=== PATIENT | female | born 1950 | race Caucasian/White ===

== ENCOUNTER 2023-06-04 21:43 | Inpatient (IN) ==
[2023-06-04] MEDS ORDERED: methylPREDNISolone 125 MG/2 ML VIAL IV STA (22:08)
[2023-06-04] MEDS ORDERED: ALBUT/IPRATROP 3MG/0.5MG NEB 3 ML VIAL NEB STA (22:08)
--- NOTE | 2023-06-04 22:14 | Emergency Department Note ---
History of Present Illness General Chief complaint: Shortness of Breath/Dyspnea Stated complaint: COUGH, CHEST PAIN, DIFFICULTY BREATHING X 6 WEEKS Time Seen by Provider: 06/04/23 21:57 History of Present Illness Maximum Pain Intensity: 6 This 73-year-old female with COPD that continues to smoke presents to the ER complaining of cough, congestion, chest pain and back pain steadily getting worse. The PCP put her on Zithromax last week with minimal improvement of symptoms. She had some subjective fever and chills. She had COVID 2 months ago. She has been exposed to COVID again. Patient denies abdominal pain, vomiting, diarrhea, headache, neck stiffness. She has been coughing up yellow- green sputum. No history of blood clots. No leg pain or swelling. She has not been able to smoke for 2 days secondary to the chest pain and shortness of breath. Home Medications Medication Instructions Recorded Confirmed Type omeprazole 20 mg capsule,delayed 20 mg PO BID 07/09/21 06/04/23 History release albuterol sulfate 90 mcg/actuation 2 puff inhalation Q4 PRN wheeze 06/04/23 06/04/23 History aerosol inhaler calcium carbonate 600 mg-vitamin 3 tab PO DAILY 06/04/23 06/04/23 History D3 10 mcg (400 unit) tablet fluticasone 250 mcg-salmeterol 50 1 inh inhalation AMHS 06/04/23 06/04/23 History mcg/dose blistr powdr for inhalation (Wixela Inhub) levothyroxine 100 mcg tablet 100 mcg PO DAILYBB 06/04/23 06/04/23 History montelukast 10 mg tablet 10 mg PO QAM 06/04/23 06/04/23 History tiotropium bromide 18 mcg capsule 1 cap inhalation QAM 06/04/23 06/04/23 History with inhalation device (Spiriva with HandiHaler) tizanidine 4 mg tablet 4 mg PO Q6 PRN Muscle Spasm 06/04/23 06/04/23 History Allergies Allergy/AdvReac Type Severity Reaction Status Date / Time Penicillins Allergy Intermediate HIVES- 50 Verified 07/09/21 22:58 YEARS AGO. Past Med/Surg History Social History Smoking Status: Current every day smoker Tobacco Type: Cigarettes Preferred Language: Belarusian Feels Safe at Home: Yes Review of Systems A total of 10 systems reviewed and were otherwise negative Physical Exam Vital Signs Vital Signs - 24 hr 06/04/23 21:45 06/04/23 23:07 06/04/23 23:09 Temperature 36.6 C Temperature Source Temporal Artery Scan Pulse Rate 94 H 89 Pulse Rate [Apical] Pulse Rate from SpO2 Sensor Pulse Rhythm Regular Pulse Strength Normal Respiratory Rate 18 Respiratory Effort / Characteristics Non-Labored Spontaneous Respiratory Depth Normal Respiratory Pattern Regular Blood Pressure 134/75 Blood Pressure [Right Arm] Blood Pressure Mean 94 Blood Pressure Mean [Right Arm] Blood Pressure Position Sitting Blood Pressure Position [Right Arm] Pulse Oximetry 91 91 Oxygen Delivery Method Room Air Room Air Oxygen Flow Rate Sepsis Recent Fever Within 48 Hours Yes Sepsis New/Unexplained Change in Mental Status N/A Sepsis Action Taken by Nursing No Action Required 06/04/23 23:16 06/04/23 23:16 06/04/23 23:16 Temperature Temperature Source Pulse Rate Pulse Rate [Apical] 88 Pulse Rate from SpO2 Sensor Pulse Rhythm Pulse Strength Respiratory Rate 18 Respiratory Effort / Characteristics Respiratory Depth Respiratory Pattern Blood Pressure Blood Pressure [Right Arm] 133/68 Blood Pressure Mean Blood Pressure Mean [Right Arm] 89 Blood Pressure Position Blood Pressure Position [Right Arm] Sitting Pulse Oximetry 89 L 91 93 Oxygen Delivery Method Room Air Nasal Cannula Nasal Cannula Oxygen Flow Rate 2 2 Sepsis Recent Fever Within 48 Hours Sepsis New/Unexplained Change in Mental Status Sepsis Action Taken by Nursing 06/05/23 00:00 06/05/23 00:28 06/05/23 00:30 Temperature Temperature Source Pulse Rate 87 Pulse Rate [Apical] Pulse Rate from SpO2 Sensor 88 Pulse Rhythm Pulse Strength Respiratory Rate 17 Respiratory Effort / Characteristics Respiratory Depth Respiratory Pattern Blood Pressure 122/73 Blood Pressure [Right Arm] Blood Pressure Mean 89 Blood Pressure Mean [Right Arm] Blood Pressure Position Blood Pressure Position [Right Arm] Pulse Oximetry 90 88 L 92 Oxygen Delivery Method Nasal Cannula Nasal Cannula Nasal Cannula Oxygen Flow Rate 2 2 4 Sepsis Recent Fever Within 48 Hours Sepsis New/Unexplained Change in Mental Status Sepsis Action Taken by Nursing VITALS: Vitals are noted on the nurse's note and reviewed by myself. Vital signs stable. GENERAL: White female with family present, in no acute distress, nondiaphoretic, well-developed well-nourished. SKIN: The skin was without rashes, erythema, edema, or bruising. There is no tenting of the skin. Capillary reflex less than 2 seconds. HEAD: Normocephalic atraumatic. EARS: External auditory canals clear, EYES: Pupils equal round and reactive to light and accommodation. Conjunctivae without injection, sclerae without icterus. Extraocular movements intact. NOSE: Patent, turbinates without inflammation or discharge. MOUTH: Mucous membranes moist. Pharynx without erythema or exudate. Uvula midline. Airway patent. Tongue does not deviate. NECK: Supple without nuchal rigidity. No lymphadenopathy. No thyromegaly. Cervical spine is nontender. No JVD. HEART: Regular rate and rhythm LUNGS: Mild diffuse inspiratory and end expiratory wheezes, No retractions or accessory muscle use. ABDOMEN: Positive bowel sounds x 4. Normal tympanic percussion. Soft, nontender, without masses or organomegaly. James sign negative. No guarding or rebound tenderness. No CVA tenderness MUSCULOSKELETAL: No muscle atrophy, erythema, or edema noted. NEURO: Patient was alert and oriented to person place and time. Normal sensation to light and sharp touch. No focal neurological deficits. Course Administered Medications Lactated Ringer's (Lr) 1,000 mls @ 60 mls/hr IV .[id number] STA Stop: 06/05/23 16:38 Last Admin: 06/05/23 01:19 Dose: 60 mls/hr Documented By: Doxycycline Hyclate 100 mg/ (Dextrose) 100 mls @ 50 mls/hr IV NOW STA Stop: 06/05/23 03:01 Last Admin: 06/05/23 01:46 Dose: 50 mls/hr Documented By: Discontinued Medications Acetaminophen (Acetaminophen 325 Mg Tab) 650 mg PO NOW STA Stop: 06/05/23 01:08 Last Admin: 06/05/23 01:46 Dose: 650 mg Documented By: Albuterol (Albut/Ipratrop 3mg/0.5mg Neb 3 Ml Vial) 3 ml NEB NOW STA; Protocol Stop: 06/04/23 22:09 Last Admin: 06/04/23 22:23 Dose: 3 ml Documented By: GEE Magnesium Sulfate/Dextrose (Magnesium Sulfate / D5w) 1 gm in 100 mls @ 100 mls/hr IV Q1H EBONI Stop: 06/05/23 00:40 Last Infusion: 06/05/23 01:20 Dose: Infused Documented By: Admin: 06/05/23 00:02 Dose: 100 mls/hr Documented By: Infusion: 06/05/23 00:02 Dose: Infused Documented By: Admin: 06/04/23 23:13 Dose: 100 mls/hr Documented By: Ioversol (Optiray 320 125ml) 118 ml IV ONCE ONE Stop: 06/04/23 23:02 Last Admin: 06/04/23 23:01 Dose: 118 ml Documented By: LAINE Methylprednisolone (Methylprednisolone 125 Mg/2 Ml Vial) 125 mg IV NOW STA Stop: 06/04/23 22:09 Last Admin: 06/04/23 22:23 Dose: 125 mg Documented By: GEE Medical Decision Making Medical Records Attestation: I reviewed the patient's medical records. Home Medications Current Medication List: was personally reviewed by me Laboratory Data Attestation: I reviewed the patient's lab results. 06/04/23 21:57 06/04/23 21:57 Lab Results 06/04/23 06/04/23 06/04/23 Range/Units 21:50 21:57 22:47 WBC 14.39 H (4.8-10.8) K/ul RBC 4.05 L (4.20-5.40) M/uL Hgb 12.4 (12.0-16.0) g/dl Hct 39.0 (37.0-47.0) % MCV 96.3 (80.0-100.0) fL MCH 30.6 (25.0-34.0) pg MCHC 31.8 L (32.0-36.0) g/dL RDW Std Deviation 45.8 (36.4-46.3) fL RDW Coeff of Ada 12.8 (11.5-14.5) % Plt Count 475 H (130-400) K/uL MPV 9.2 L (9.4-12.4) fL Immature Gran % (Auto) 0.4 % Neut % (Auto) 48.9 % Lymph % (Auto) 33.4 % Brooks % (Auto) 15.1 % Eos % (Auto) 1.7 % Baso % (Auto) 0.5 % Neut # (Auto) 7.02 H (1.40-6.50) K/uL Lymph # (Auto) 4.81 H (1.20-3.40) K/uL Brooks # (Auto) 2.18 H (0.11-0.59) K/uL Eos # (Auto) 0.25 (0.00-0.50) K/uL Baso # (Auto) 0.07 (0.00-0.20) K/uL Immature Gran # (Auto) 0.06 (0.01-0.20) K/uL APTT 26.8 (21.0-31.0) Seconds PTT Ratio 1.0 Sodium 140 (136-145) mmol/L Potassium 4.0 (3.5-5.1) mmol/L Chloride 103 (98-107) mmol/L Carbon Dioxide 31 (21-32) mmol/L Anion Gap 6 (3-11) BUN 13 (6-23) mg/dl Creatinine 0.66 (0.6-1.2) mg/dl Est Cr Clr Drug Dosing 60.9 ml/min Est GFR ( Amer) 102.3 ml/min Est GFR (Non-Af Amer) 88.3 ml/min BUN/Creatinine Ratio 19.7 (10-20) Glucose 88 (70-99(Fasting)) mg/dl Calcium 10.3 (8.6-10.3) mg/dl Magnesium 1.6 L (1.7-2.4) mg/dl Total Bilirubin 0.2 (0.2-1.0) mg/dl AST 29 (13-39) U/L ALT 23 (7-52) U/L Alkaline Phosphatase 79 (34-104) U/L Troponin I High Sens 4.2 (0-14) pg/ml B-Natriuretic Peptide 98 (0-100) pg/ml Total Protein 7.6 (6.0-8.3) gm/dl Albumin 4.1 (3.4-5.0) gm/dl Globulin 3.5 (2.5-4.0) gm/dl Albumin/Globulin Ratio 1.2 (0.9-2) Lipase 17 (11-82) U/L Adenovirus (PCR) Not Detected (NotDetected) B. pertussis DNA (PCR) Not Detected (NotDetected) B.parapertussis DNA PCR Not Detected (NotDetected) C. pneumoniae DNA (PCR) Not Detected (NotDetected) Coronavirus OC43 (PCR) Not Detected (NotDetected) Coronavirus HKU1 (PCR) Not Detected (NotDetected) Coronavirus 229E (PCR) Not Detected (NotDetected) SARS-CoV-2 (PCR) Not Detected (NotDetected) Coronavirus NL63 (PCR) Not Detected (NotDetected) Human Metapneumovir PCR Not Detected (NotDetected) Influenza Type A (PCR) Not Detected (NotDetected) Influenza Type B (PCR) Not Detected (NotDetected) M. pneumoniae (PCR) Not Detected (NotDetected) Parainfluenza 1 (PCR) Not Detected (NotDetected) Parainfluenza 2 (PCR) Not Detected (NotDetected) Parainfluenza 3 (PCR) Not Detected (NotDetected) Parainfluenza 4 (PCR) Not Detected (NotDetected) RSV (PCR) Not Detected (NotDetected) Entero/Rhino (PCR) DETECTED A* (NotDetected) Imaging Data Attestation: I personally reviewed and interpreted this imaging study as follows: Radiologist's Impression: Chest CTA 06/04/23 22:08 Exam(s): CTA CHEST IV Amt: OPTIRAY [id number] EXAM: CT Angiography Chest With Intravenous Contrast CLINICAL HISTORY: Reason for exam: PE, COPD, recent covid. TECHNIQUE: Axial computed tomographic angiography images of the chest with intravenous contrast. Automated exposure control was utilized for the study. A dose lowering technique was utilized adhering to the principles of ALARA. MIP reconstructed images were created and reviewed. COMPARISON: 07/10/2021 FINDINGS: Pulmonary arteries: Unremarkable. No CT evidence of pulmonary embolism. Aorta: No acute findings. No thoracic aortic aneurysm. Lungs: Bronchial wall thickening within bilateral lung bases with patchy areas of consolidation. Smaller area of centrilobular opacities within the right middle lobe as well. Findings are most concerning for an infectious etiology. Severe centrilobular emphysema. Pleural space: Unremarkable. No significant effusion. No pneumothorax. Heart: Unremarkable. No cardiomegaly. No significant pericardial effusion. No evidence of RV dysfunction. Bones/joints: No acute fracture. No dislocation. Soft tissues: Unremarkable. Lymph nodes: Unremarkable. No enlarged lymph nodes. IMPRESSION: 1. No CT evidence of pulmonary embolism. 2. Bronchial wall thickening within bilateral lung bases with patchy areas of consolidation. Smaller area of centrilobular opacities within the right middle lobe as well. Findings are most concerning for an infectious etiology. 3. Severe centrilobular emphysema. Electronically signed by: Beny Blank M.D. 06/05/23 01:42 AM MDM Narrative Prior records/ancillary studies reviewed. Triage Nursing notes reviewed. Additional history obtained from the family. The patient's history was concerning for respiratory difficulties. Differential diagnosis: Etiologies such as infections, reactive airway disease, pneumonia, pneumothorax, COPD, CHF, cardiac ischemia, pulmonary embolism, musculoskeletal, gastrointestinal, as well as others were entertained. Physical examination: As above. ER treatment provided: An order was placed for continuous cardiac monitoring. The monitor shows a rate of 60-100 with a sinus rhythm per my interpretation. Solu-Medrol, nebulizer, magnesium, doxycycline On reassessment the patient felt better. Diagnostic interpretation by me: The electrocardiogram was ordered for SOB. ECG: Normal sinus, low voltage, poor baseline, no acute ST-T wave changes, rate of 88. Impression normal sinus rhythm low voltage independently interpreted by myself I think arrhythmia is unlikely. EKG shows normal sinus rhythm with no interval abnormalities such as QT prolongation or WPW. There are no findings to suggest Brugada syndrome. Cardiac monitoring in the emergency department reveals no tachycardic or bradycardic dysrhythmia. Hypertrophic cardiomyopathy was considered but there are no clear historical elements pointing toward this. EKG is not suggestive. The QRS voltage is not extremely large and there are no suggestive Q waves. The labs Independently Interpreted by myself revealed leukocytosis, negative troponin. Low magnesium this was replaced as above Imaging studies: Chest x-ray with no acute consolidation, pneumothorax or free air per my independent interpretation CTA negative for PE but concerning for Bronchial wall thickening within bilateral lung bases with patchy areas of consolidation per my independent interpretation And report above was reviewed. Consultation: A consultation was placed with the hospitalist. The case was discussed and diagnostics were reviewed. The patient was evaluated in the ER for further treatment. This appears to be consistent with COPD exacerbation who is hypoxic. Patient is placed on nasal cannula and oxygen levels improved. She was medicated as above. Medicine was consulted and case was discussed. She will be admitted to the medical service for further evaluation and treatment. Patient is agreeable.. By the evaluation outlined above emergent etiologies such as CHF, cardiac ischemia, pulmonary embolism, reactive airway disease, pneumothorax, musculoskeletal, serious bacterial infections, as well as others were deemed relatively unlikely. The pt informed about the findings as listed above. All questions were answered and pleased with the treatment. The chart was completed utilizing [employer] Speech voice recognition software. Grammatical errors, random word insertions, pronoun errors, and incomplete sentences are an occassional consequence of this system due to software limitations, ambient noise, and hardware issues. Any formal questions or concerns about the content, text, or information contained within the body of this dictation should be directly addressed to the physician fleet assistant for clarification. Impression & Plan Acute exacerbation of chronic obstructive airways disease, Acute bronchitis due to Rhinovirus, Hypoxemia Discharge Plan Visit Data Chief Complaint: Shortness of Breath/Dyspnea Stated Complaint: COUGH, CHEST PAIN, DIFFICULTY BREATHING X 6 WEEKS ED Provider: Abdoul Chaudhry ED Midlevel Provider: Fanny Swanson Discharge Problem: Acute exacerbation of chronic obstructive airways disease, Acute bronchitis due to Rhinovirus, Hypoxemia Patient Disposition: Admitted As Inpatient Condition: Good Discharge Instructions Interventions: ED Discharge Assessment Last Done: 06/05/23 01:40
[2023-06-04 22:16] LABS: Hemoglobin 12.4 g/dl (12.0-16.0); Mean Corpuscular Hemoglobin 30.6 pg (25.0-34.0); Mean Corpuscular Hgb Conc 31.8 g/dL (32.0-36.0); Mean Corpuscular Volume 96.3 fL (80.0-100.0); Mean Platelet Volume 9.2 fL (9.4-12.4); Platelet Count 475 K/uL (130-400); RDW Coefficient of Variation 12.8 % (11.5-14.5); RDW Standard Deviation 45.8 fL (36.4-46.3); Red Blood Count 4.05 M/uL (4.20-5.40); White Blood Count 14.39 K/ul (4.8-10.8)
[2023-06-04 22:32] LABS: Albumin Globulin Ratio 1.2 (0.9-2); Albumin Level 4.1 gm/dl (3.4-5.0); BUN Creatinine Ratio 19.7 (10-20); Bilirubin,Total 0.2 mg/dl (0.2-1.0); Calcium 10.3 mg/dl (8.6-10.3); Creatinine Clr Calc Pharmacy 60.9 ml/min; Est GFR (African American) 102.3 ml/min; Est GFR (Non-African American) 88.3 ml/min; Globulin 3.5 gm/dl (2.5-4.0); Total Protein 7.6 gm/dl (6.0-8.3)
[2023-06-04 22:39] LABS: Magnesium 1.6 mg/dl (1.7-2.4)
[2023-06-04 22:48] LABS: Troponin I High Sensitivity 4.2 pg/ml (0-14)
[2023-06-04 22:51] LABS: Adenovirus PCR Not Detected (NotDetected); Bordetella parapertussis PCR Not Detected (NotDetected); Bordetella pertussis PCR Not Detected (NotDetected); Chlamydia pneumoniae PCR Not Detected (NotDetected); Coronavirus 229E PCR Not Detected (NotDetected); Coronavirus CoV-2 (COVID19)PCR Not Detected (NotDetected); Coronavirus HKU1 PCR Not Detected (NotDetected); Coronavirus NL63 PCR Not Detected (NotDetected); Coronavirus OC43PCR Not Detected (NotDetected); Human Metapneumovirus PCR Not Detected (NotDetected); Influenza A PCR Not Detected (NotDetected); Influenza B PCR Not Detected (NotDetected); Mycoplasma pneumoniae PCR Not Detected (NotDetected); Parainfluenza Virus 1 PCR Not Detected (NotDetected); Parainfluenza Virus 2 PCR Not Detected (NotDetected); Parainfluenza Virus 3 PCR Not Detected (NotDetected); Parainfluenza Virus 4 PCR Not Detected (NotDetected); Respiratory Syncytial VirusPCR Not Detected (NotDetected)
[2023-06-04 22:52] LABS: Rhinovirus/Enterovirus PCR DETECTED (NotDetected)
[2023-06-04 22:53] LABS: Basophils # (auto) 0.07 K/uL (0.00-0.20); Basophils % (auto) 0.5 %; Eosinophils # (auto) 0.25 K/uL (0.00-0.50); Eosinophils % (auto) 1.7 %; Immature Granulocytes # (auto) 0.06 K/uL (0.01-0.20); Immature Granulocytes % (auto) 0.4 %; Lymphocytes # (auto) 4.81 K/uL (1.20-3.40); Lymphocytes % (auto) 33.4 %; Monocytes # (auto) 2.18 K/uL (0.11-0.59); Monocytes % (auto) 15.1 %; Neutrophils # (auto) 7.02 K/uL (1.40-6.50); Neutrophils % (auto) 48.9 %
[2023-06-04] MEDS ORDERED: OPTIRAY 320 125ml IV ONE (23:01)
[2023-06-04] MEDS: MAGNESIUM SULFATE / D5W 1 GM/100 ML BAG IV SCH (23:13)
--- NOTE | 2023-06-04 23:36 | Emergency Department Note ---
ED Visit Note I was consulted by the Advanced Practice Provider, Fanny Swanson PA-C. I performed a substantive portion of the visit. This includes the aspects of: -History/Physical/Personally seeing the patient -MDM -Diagnostic interpretations -Disposition/plan
[2023-06-04] MEDS ORDERED: LACTATED RINGER'S 1,000 ML IV STA (23:59)
[2023-06-05] MEDS: MAGNESIUM SULFATE / D5W 1 GM/100 ML BAG IV SCH (00:02)
[2023-06-05 00:13] LABS: Partial Thromboplastin Time 26.8 Seconds (21.0-31.0)
[2023-06-05] MEDS ORDERED: DOXYCYCLINE HYCLATE 100 MG in DEXTROSE 5% MINI-B 100 ML IV STA (01:02)
--- NOTE | 2023-06-05 01:03 | History & Physical Report ---
Date of Service June 05, 2023 Assessment & Plan (1) Acute hypoxemic respiratory failure: Plan: Secondary to COPD exacerbation secondary to complicated bronchitis following enterorhinovirus infection No overt sepsis for now prediabetes, recent outpatient hemoglobin A1c of 5.9 this month hypothyroidism, euthyroid as of recent outpatient TSH GERD, stable on regimen Malnutrition, low BMI secondary to COPD ongoing tobacco abuse Medical telemetry Supplemental O2 Doxycycline course for complicated bronchitis Nebs RTC, prednisone course for COPD exacerbation Pulmonology consult if without improvement. May benefit from outpatient Pulmonology consultation given uncontrolled respiratory symptoms at baseline prior to confinement. Nutrition consult Re: Low BMI DVT prophylaxis. Heparin subcu DNR Text document was generated using Facebook voice recognition software. It may contain grammatical or spelling errors. Kindly contact undersigned for clarification of any documentation item in question. History of Present Illness Chief Complaint: Worsening cough, shortness of breath symptoms Primary Care Provider: Dr. Qureshi History obtained from patient and records. Medical history significant for COPD, prediabetes, hypothyroidism, GERD, celiac disease, chronic myofascial pain, osteoporosis, ongoing tobacco abuse. Patient had cough symptoms attributed to COVID-19 illness about 2 months ago. Patient has received COVID-19 vaccination. Recovered with supportive management at home. Patient was good for about a week following COVID-19 illness. Symptoms later followed by junky cough, exertional SOB symptoms. Denies aspiration. Patient compliant with home inhalers but still smokes. Insurance does not cover Advair. Patient did not mention respiratory symptoms to outpatient providers because she feels that "they do not listen to her." Patient is seen at PCP's office 2 weeks ago. Patient verbalized fatigue symptoms. Patient later prescribed short course of prednisone for troublesome cough and SOB which resulted in transient improvement of symptoms. 2 days ago, patient developed nasal congestion productive of yellow-greenish drainage. Possible sick contacts. Worsening junky cough and SOB symptoms. Chest pain and headache from coughing. Denies aspiration. Lowest O2 sat of 80s documented at the ER. Patient given Solu-Medrol and neb treatment. 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 Home Medications Medication Instructions Recorded Confirmed Type omeprazole 20 mg capsule,delayed 20 mg PO BID 07/09/21 06/04/23 History release albuterol sulfate 90 mcg/actuation 2 puff inhalation Q4 PRN wheeze 06/04/23 06/04/23 History aerosol inhaler calcium carbonate 600 mg-vitamin 3 tab PO DAILY 06/04/23 06/04/23 History D3 10 mcg (400 unit) tablet fluticasone 250 mcg-salmeterol 50 1 inh inhalation AMHS 06/04/23 06/04/23 History mcg/dose blistr powdr for inhalation (Wixela Inhub) levothyroxine 100 mcg tablet 100 mcg PO DAILYBB 06/04/23 06/04/23 History montelukast 10 mg tablet 10 mg PO QAM 06/04/23 06/04/23 History tiotropium bromide 18 mcg capsule 1 cap inhalation QAM 06/04/23 06/04/23 History with inhalation device (Spiriva with HandiHaler) tizanidine 4 mg tablet 4 mg PO Q6 PRN Muscle Spasm 06/04/23 06/04/23 History Past Med/Surg History Social History Smoking Status: Former smoker Tobacco Type: Cigarettes Hx Substance Use: No Preferred Language: Latvian Communication Ability: Effective Silo Man Required: No Beliefs That Will Affect Care: None Current Living Situation: Spouse Other Information That Helps Us Care for You: No Feels Safe at Home: Yes Safety Concerns: Feels Safe At This Time Assistive Devices: Denture - Upper, Denture - Lower and Glasses Review of Systems Review of Systems: As per HPI, all other systems reviewed and negative Physical Exam Physical Exam: GENERAL: Slightly uncomfortable, underweight, no respiratory distress SKIN: Normal color, warm HEENT: [place] palpebral conjunctivae, no ptosis, dry buccal mucosa, nasal cannula in place NECK : Supple, no tenderness CHEST : Decreased breath sounds, no tenderness HEART : RRR, no obvious murmurs ABDOMEN: no distention, nontender EXTREMITIES : No LE swelling/tenderness, no other conspicuous deformities noted NEUROLOGIC : Coherent, no facial asymmetry, no other gross focality Results & Data Results & Data Vital Signs (Past 12 Hours) Vital Signs Temp Pulse Pulse Resp BP BP Pulse Ox 06/05/23 00:30 92 06/05/23 00:28 88 L 06/05/23 00:00 87 17 122/73 90 06/04/23 23:16 88 18 133/68 93 06/04/23 23:16 91 06/04/23 23:16 89 L 06/04/23 23:09 91 06/04/23 23:07 89 06/04/23 21:45 36.6 C 94 H 18 134/75 91 O2 Del Method O2 Flow Rate 06/05/23 00:30 Nasal Cannula 4 06/05/23 00:28 Nasal Cannula 2 06/05/23 00:00 Nasal Cannula 2 06/04/23 23:16 Nasal Cannula 2 06/04/23 23:16 Nasal Cannula 2 06/04/23 23:16 Room Air 06/04/23 23:09 Room Air 06/04/23 23:07 06/04/23 21:45 Room Air Laboratory Results Laboratory Results WBC 14.39 K/ul (4.8-10.8) H 06/04/23 21:57 RBC 4.05 M/uL (4.20-5.40) L 06/04/23 21:57 Hgb 12.4 g/dl (12.0-16.0) 06/04/23 21:57 Hct 39.0 % (37.0-47.0) 06/04/23 21:57 MCV 96.3 fL (80.0-100.0) 06/04/23 21:57 MCH 30.6 pg (25.0-34.0) 06/04/23 21:57 MCHC 31.8 g/dL (32.0-36.0) L 06/04/23 21:57 RDW Std Deviation 45.8 fL (36.4-46.3) 06/04/23 21:57 RDW Coeff of Ada 12.8 % (11.5-14.5) 06/04/23 21:57 Plt Count 475 K/uL (130-400) H 06/04/23 21:57 MPV 9.2 fL (9.4-12.4) L 06/04/23 21:57 Immature Gran % (Auto) 0.4 % 06/04/23 21:57 Neut % (Auto) 48.9 % 06/04/23 21:57 Lymph % (Auto) 33.4 % 06/04/23 21:57 Cole % (Auto) 15.1 % 06/04/23 21:57 Eos % (Auto) 1.7 % 06/04/23 21:57 Baso % (Auto) 0.5 % 06/04/23 21:57 Neut # (Auto) 7.02 K/uL (1.40-6.50) H 06/04/23 21:57 Lymph # (Auto) 4.81 K/uL (1.20-3.40) H 06/04/23 21:57 Cole # (Auto) 2.18 K/uL (0.11-0.59) H 06/04/23 21:57 Eos # (Auto) 0.25 K/uL (0.00-0.50) 06/04/23 21:57 Baso # (Auto) 0.07 K/uL (0.00-0.20) 06/04/23 21:57 Immature Gran # (Auto) 0.06 K/uL (0.01-0.20) 06/04/23 21:57 APTT 26.8 Seconds (21.0-31.0) 06/04/23 21:57 PTT Ratio 1.0 06/04/23 21:57 Sodium 140 mmol/L (136-145) 06/04/23 21:57 Potassium 4.0 mmol/L (3.5-5.1) 06/04/23 21:57 Chloride 103 mmol/L (98-107) 06/04/23 21:57 Carbon Dioxide 31 mmol/L (21-32) 06/04/23 21:57 Anion Gap 6 (3-11) 06/04/23 21:57 BUN 13 mg/dl (6-23) 06/04/23 21:57 Creatinine 0.66 mg/dl (0.6-1.2) 06/04/23 21:57 Est Cr Clr Drug Dosing 60.9 ml/min 06/04/23 21:57 Est GFR ( Amer) 102.3 ml/min 06/04/23 21:57 Est GFR (Non-Af Amer) 88.3 ml/min 06/04/23 21:57 BUN/Creatinine Ratio 19.7 (10-20) 06/04/23 21:57 Glucose 88 mg/dl (70-99(Fasting)) 06/04/23 21:57 Calcium 10.3 mg/dl (8.6-10.3) 06/04/23 21:57 Magnesium 1.6 mg/dl (1.7-2.4) L 06/04/23 21:57 Total Bilirubin 0.2 mg/dl (0.2-1.0) 06/04/23 21:57 AST 29 U/L (13-39) 06/04/23 21:57 ALT 23 U/L (7-52) 06/04/23 21:57 Alkaline Phosphatase 79 U/L (34-104) 06/04/23 21:57 Troponin I High Sens 4.2 pg/ml (0-14) 06/04/23 21:57 B-Natriuretic Peptide 98 pg/ml (0-100) 06/04/23 22:47 Total Protein 7.6 gm/dl (6.0-8.3) 06/04/23 21:57 Albumin 4.1 gm/dl (3.4-5.0) 06/04/23 21:57 Globulin 3.5 gm/dl (2.5-4.0) 06/04/23 21:57 Albumin/Globulin Ratio 1.2 (0.9-2) 06/04/23 21:57 Lipase 17 U/L (11-82) 06/04/23 21:57 Adenovirus (PCR) Not Detected (NotDetected) 06/04/23 21:50 B. pertussis DNA (PCR) Not Detected (NotDetected) 06/04/23 21:50 B.parapertussis DNA PCR Not Detected (NotDetected) 06/04/23 21:50 C. pneumoniae DNA (PCR) Not Detected (NotDetected) 06/04/23 21:50 Coronavirus OC43 (PCR) Not Detected (NotDetected) 06/04/23 21:50 Coronavirus HKU1 (PCR) Not Detected (NotDetected) 06/04/23 21:50 Coronavirus 229E (PCR) Not Detected (NotDetected) 06/04/23 21:50 SARS-CoV-2 (PCR) Not Detected (NotDetected) 06/04/23 21:50 Coronavirus NL63 (PCR) Not Detected (NotDetected) 06/04/23 21:50 Human Metapneumovir PCR Not Detected (NotDetected) 06/04/23 21:50 Influenza Type A (PCR) Not Detected (NotDetected) 06/04/23 21:50 Influenza Type B (PCR) Not Detected (NotDetected) 06/04/23 21:50 M. pneumoniae (PCR) Not Detected (NotDetected) 06/04/23 21:50 Parainfluenza 1 (PCR) Not Detected (NotDetected) 06/04/23 21:50 Parainfluenza 2 (PCR) Not Detected (NotDetected) 06/04/23 21:50 Parainfluenza 3 (PCR) Not Detected (NotDetected) 06/04/23 21:50 Parainfluenza 4 (PCR) Not Detected (NotDetected) 06/04/23 21:50 RSV (PCR) Not Detected (NotDetected) 06/04/23 21:50 Entero/Rhino (PCR) DETECTED (NotDetected) A* 06/04/23 21:50 CT chest: 1. No CT evidence of pulmonary embolism. 2. Bronchial wall thickening within bilateral lung bases with patchy areas of consolidation. Smaller area of centrilobular opacities within the right middle lobe as well. Findings are most concerning for an infectious etiology. 3. Severe centrilobular emphysema. Diagnostic Findings EKG as per my interpretation : Rate 90, NSR, LAD, LAFB, incomplete RBBB, no ischemia, low voltage
[2023-06-05] MEDS ORDERED: ACETAMINOPHEN 325 MG TAB PO STA (01:07)
--- NOTE | 2023-06-05 01:43 | CT Scan Report ---
Exam(s): CTA CHEST IV Amt: OPTIRAY 320 118ML EXAM: CT Angiography Chest With Intravenous Contrast CLINICAL HISTORY: Reason for exam: PE, COPD, recent covid. TECHNIQUE: Axial computed tomographic angiography images of the chest with intravenous contrast. Automated exposure control was utilized for the study. A dose lowering technique was utilized adhering to the principles of ALARA. MIP reconstructed images were created and reviewed. COMPARISON: 07/10/2021 FINDINGS: Pulmonary arteries: Unremarkable. No CT evidence of pulmonary embolism. Aorta: No acute findings. No thoracic aortic aneurysm. Lungs: Bronchial wall thickening within bilateral lung bases with patchy areas of consolidation. Smaller area of centrilobular opacities within the right middle lobe as well. Findings are most concerning for an infectious etiology. Severe centrilobular emphysema. Pleural space: Unremarkable. No significant effusion. No pneumothorax. Heart: Unremarkable. No cardiomegaly. No significant pericardial effusion. No evidence of RV dysfunction. Bones/joints: No acute fracture. No dislocation. Soft tissues: Unremarkable. Lymph nodes: Unremarkable. No enlarged lymph nodes. IMPRESSION: 1. No CT evidence of pulmonary embolism. 2. Bronchial wall thickening within bilateral lung bases with patchy areas of consolidation. Smaller area of centrilobular opacities within the right middle lobe as well. Findings are most concerning for an infectious etiology. 3. Severe centrilobular emphysema. Electronically signed by: Beny Blank M.D. 06/05/23 01:42 AM
[2023-06-05 04:41] LABS: BUN Creatinine Ratio 18.3 (10-20); Calcium 9.8 mg/dl (8.6-10.3); Creatinine Clr Calc Pharmacy 56.6 ml/min; Est GFR (African American) 98.6 ml/min; Est GFR (Non-African American) 85.1 ml/min; Magnesium 2.1 mg/dl (1.7-2.4); Potassium 4.1 mmol/L (3.5-5.1)
[2023-06-05 04:43] LABS: Basophils # (auto) 0.05 K/uL (0.00-0.20); Basophils % (auto) 0.3 %; Eosinophils # (auto) 0.01 K/uL (0.00-0.50); Eosinophils % (auto) 0.1 %; Hematocrit (blood only) 40.8 % (37.0-47.0); Hemoglobin 12.8 g/dl (12.0-16.0); Immature Granulocytes # (auto) 0.07 K/uL (0.01-0.20); Immature Granulocytes % (auto) 0.5 %; Lymphocytes # (auto) 2.36 K/uL (1.20-3.40); Lymphocytes % (auto) 16.2 %; Mean Corpuscular Hemoglobin 30.1 pg (25.0-34.0); Mean Corpuscular Hgb Conc 31.4 g/dL (32.0-36.0); Mean Platelet Volume 9.4 fL (9.4-12.4); Monocytes # (auto) 0.13 K/uL (0.11-0.59); Monocytes % (auto) 0.9 %; Neutrophils # (auto) 11.93 K/uL (1.40-6.50); Platelet Count 501 K/uL (130-400); RDW Coefficient of Variation 12.9 % (11.5-14.5); RDW Standard Deviation 45.6 fL (36.4-46.3); Red Blood Count 4.25 M/uL (4.20-5.40); White Blood Count 14.55 K/ul (4.8-10.8)
[2023-06-05] MEDS: LEVOTHYROXINE SODIUM 100 MCG TABLET PO SCH (06:32)
[2023-06-05] MEDS ORDERED: XOPENEX/ATROVENT 1.25mg/0.5MG NEB COMBO NEB SCH (07:00)
--- NOTE | 2023-06-05 07:04 | XRay Report ---
XR chest 1V portable HISTORY: illness COMPARISON: Chest CT 07/10/2021. FINDINGS: Emphysema. No pneumothorax. No pleural effusions. No focal lung consolidations. No evidence for pulmonary edema. The cardiac silhouette is top normal in size. There are postoperative changes w ithin the right humerus. IMPRESSION: Emphysema. Otherwise, no acute process within the chest. ACT 112: Negative or not required by law. Electronically signed by: Kolby Moon M.D. 06/05/2023 7:03 AM
[2023-06-05] MEDS: LEVALBUTEROL 1.25 MG/3 ML NEB NEB SCH ×4 (07:45→23:54)
[2023-06-05] MEDS: IPRATROPIUM BROMIDE NEB SOLN 0.02% 2.5 ML VIAL INH SCH ×4 (07:45→23:54)
[2023-06-05] MEDS: UMECLIDINIUM BROMIDE 62.5MCG/BLISTER 7 PUFFS/INHALER INH SCH (08:18)
[2023-06-05] MEDS: PANTOprazole 40 MG TAB PO SCH ×2 (08:19→21:44)
[2023-06-05] MEDS: MONTELUKAST SODIUM 10 MG TABLET PO SCH (08:19)
[2023-06-05] MEDS: FLUTICASONE/VILANTEROL 100/25MCG 14 PUFFS/INHALER INH SCH (08:19)
[2023-06-05] MEDS: predniSONE 20 MG TAB PO SCH (08:19)
[2023-06-05] MEDS: tiZANidine HCL 4 MG TABLET PO PRN (08:21)
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
--- OUTSIDE RECORDS SUMMARY | 2023-06-05 09:41 | External Medical Summary ---
Author Name Unknown Address Unknown Organization [id number][place] [place] [address] [place] [address] Laboratory Report Ordering Provider Test Date Status JESUS ALBERTO VELA 05/25/2023 15:43:22 Final Observation Date Value Abnormality Reference (Units ) Status Vitamin B12 05/25/2023 15:43:22 [phone] (pg/mL) Final Performing Location [facility] [place] [address] [facility] [place] [address]
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
--- OUTSIDE RECORDS SUMMARY | 2023-06-05 09:41 | External Medical Summary ---
Author Name Unknown Address Unknown Organization K01:[facility]ATORY [place] [address] [address] [facility] [place]. [place] [address] Laboratory Report Ordering Provider Test Date Status JESUS ALBERTO VELA 05/25/2023 15:43:22 Final Observation Date Value Abnormality Reference (Units ) Status Gliadin peptide IgG Ab [Presence] in Serum by Immunoassay 05/25/2023 15:43:22 Positive Abnormal Negative Final Gliadin peptide IgG Ab [Units/volume] in Serum by Immunoassay 05/25/2023 15:43:22 26.0 <7 (U/mL) Final Gliadin peptide IgA Ab [Presence] in Serum by Immunoassay 05/25/2023 15:43:22 Positive Abnormal Negative Final Gliadin peptide IgA Ab [Units/volume] in Serum by Immunoassay 05/25/2023 15:43:22 78.0 <7 (U/mL) Final Performing Location [facility] [place] [facility] [place] [address]
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
--- OUTSIDE RECORDS SUMMARY | 2023-06-05 09:41 | External Medical Summary | Summary of Care ---
Author Name Unknown Organization [facility] Address [address] [facility] [place] [address] Phone [phone] Care Team Providers Care Life Skills Trainer Name Role Phone Jose Alejandro Qureshi MD Primary Care Provide r Reason for Visit * Reason Comments Outpatient Testing Encounter Details Date Type Department Care Team (Late st Contact Info) Description 05/25/2023 4:20 PM EST Laboratory Laboratory [address] [place] [phone] [place] [address] Senile osteoporosis; Acquired hypothyroidism; Prediabetes; Celiac disease [...] Release Take by mouth. 0 Active MegaRed [place]-3 Krill Oil 500 MG Oral Capsule Take [...] 11:15 AM EST Office Visit General Surgery, [address] [place] [address] Tara Parra MD [address] [place] [address] 08/08/2023 3:30 PM EST Nurse Only Rheumatology [address] [place] [phone] [place], Nurse [address] [place] [phone] 09/21/2023 12:00 PM EST Office Visit Family Medicine [address] [place] [phone] Jose Alejandro Qureshi MD [address] [place] [address] [place] [address] 2024 9:40 AM EDT Office Visit Rheumatology [address] [place] [phone] Fabian Jensen MD [address] [facility], [place] [address] Pending Results Name Type Priority Associated Diagnoses [...] Routine Celiac disease 05/25/2023 3:43 PM EST Health Maintenance Due Date Last Done Comments DISCUSS TOBACCO CESSATION (REFER TO SMARTSET #9723) 1950 Alpha-1 Antitrypsin 1969 Hepatitis C Screening 1969 DTaP,Tdap,and Td Vaccines (1 - Tdap) 1970 Cologuard 02/11/1996 Colonoscopy 02/11/1996 Colorectal Cancer Screening 02/11/1996 Fecal Occult Blood Test 02/11/1996 Sigmoidoscopy 02/11/1996 Zoster Vaccines (1 of 2) 2001 Pneumococcal Vaccine: 65+ Years (2 - PPSV23 or PCV20) 12/20/2017 10/25/2017 Depression Screening 03/28/2021 03/28/2020 COVID-19 Vaccine ( - season) 2023 07/04/2021, 10/24/2020, 09/26/2020 Mammogram 06/08/2023 06/08/2022, 1109/2020, 05/14/2020, Additional history exists TSH 09/18/2023 09/17/2022, 07/18, 04/26/2022, Additional history exists O2 ASSESSMENT COMPLETED IN PAST YEAR FOR COPD 10/15/2023 10/14/2022 DXA Scan 02/18/2024 02/17/2022, 06/17, 04/14/2017, Additional history exists HbA1c 02/24/2024 02/23/2023, 04/17, 03/30/2021, Additional history exists Lipid Panel 11/26/2024 11/27/2019, 11/23/2002 VITAMIN D LEVEL ONCE IN A LIFETIME-USE SMARTSET# [id number] Completed 02/23/2023, 04/26/2022, 07/16/2021, Additional history exists LUNG CANCER SCREENING - USE SMARTSET [id number] Completed 04/22/2023 Influenza Vaccine (FLU shot) Completed [...] as of this encounter Visit Diagnoses Diagnosis Senile osteoporosis Acquired hypothyroidism Unspecified hypothyroidism Prediabetes Other abnormal glucose Celiac disease documented in this encounter Care Teams Life Skills Trainer Relationship Specialty Start Date End Date Jose Alejandro Qureshi MD [address] [place] [address] [place] [address] PCP - General Family Medicine 08/05/22 documented as of this encounter
--- OUTSIDE RECORDS SUMMARY | 2023-06-05 09:41 | External Medical Summary ---
Author Name Unknown Address Unknown Organization K01:[facility] [place] [address] [place] [address] Laboratory Report Ordering Provider Test Date Status MIRIANJESUS ALBERTO 05/25/2023 15:43:22 Final Observation Date Value Abnormality Reference (Units ) Status TSH 05/25/2023 15:43:22 2.37 0.27-4.20 (uIU/mL) Final Performing Location [facility] [address] [facility] [place] [address]
--- OUTSIDE RECORDS SUMMARY | 2023-06-05 09:41 | External Medical Summary | Summary of Care ---
Author Name Unknown Organization [facility] Address [address] [facility] [place] [address] Phone [phone] Care Team Providers Care Medical Physicist Name Role Phone Jose Alejandro Qureshi MD Primary Care Provide r Encounter Details Date Type Department Care Team (Late st Contact Info) Description 05/19/2023 9:00 AM EDT Immunization Ancillary [address] [place] [address] [place] [address] [place] [address] Arrived Allergies Active Allergy Reactions Criticality Noted [...] Release Take by mouth. 0 Active MegaRed [place]-3 Krill Oil 500 MG Oral Capsule Take [...] 11:15 AM EST Office Visit General Surgery, [facility] [address] [place] [address] Tara Parra MD [address] [place] [address] 08/08/2023 3:30 PM EST Nurse Only Rheumatology [address] [place] [phone] [place], Nurse Rheum [address] [place] [phone] 09/21/2023 12:00 PM EST Office Visit Family Medicine [address] [place] [phone] Jose Alejandro Qureshi MD [address] [place] [address] [place] [address] 2024 9:40 AM EDT Office Visit Rheumatology [address] [place] [phone] Fabian [place] MD [facility] [place] [place] [address] Health Maintenance Due Date Last Done Comments DISCUSS TOBACCO CESSATION (REFER TO SMARTSET #2702) 1950 Alpha-1 Antitrypsin 1969 Hepatitis C Screening [...] D LEVEL ONCE IN A LIFETIME-USE SMARTSET# [id number] Completed 02/23/2023, 04/26/2022, 07/16/2021, Additional history exists LUNG CANCER SCREENING - USE SMARTSET [id number] Completed 04/22/2023 Influenza Vaccine (FLU shot) Completed [...] filedocumented as of this encounter Care Teams Medical Physicist Relationship Specialty Start Date End Date Jose Alejandro Qureshi MD [address] [place] [address] [place] [phone] PCP - General Family Medicine 08/05/22 documented as of this encounter
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
--- OUTSIDE RECORDS SUMMARY | 2023-06-05 09:42 | External Medical Summary | Summary of Care ---
Author Name Unknown Organization [facility] Address [address] [place] [address] Phone [phone] Care Team Providers Care Bin Piler Name Role Phone Jose Alejandro Qureshi MD Primary Care Provide r Encounter Details Date Type Department Care Team Description 03/08/2023 Orders Only Outcomes Research Department [address] [place] [address] Fanny Bernal CHRA [employer] Research Other*[id number] Allergies Active Allergy Reactions Severity Noted Date [...] Take by mouth. 0 Activ e MegaRed [place]-3 Krill Oil 500 MG Oral Capsule Take [...] not swallow.. 30 Capsule 6 11/10/2022 Active Fluticasone-Salmeter ol 250-50 MCG/ACT Inhalation Aerosol Powder Breath Activated (Advair Diskus)Indications:C OPD, mild (HCC) Inhale 1 Puff by mouth [...] Muscle spasms. 120 Tablet 0 03/07/2023 Active Hospital, Clinic, or Other Facility Administered [...] Encounters Date Type Specialty Care Team Description 03/08/2023 Office Visit General Surgery Tara Parra MD [address] [place] [address] 03/23/2023 Office Visit Family Medicine Jose Alejandro Qureshi MD [address] [place] [address] [place] [address] 03/23/2023 Laboratory Laboratory [place], Lab [address] [place] [address] 08/08/2023 Nurse Only Rheumatology [place], Nurse Rheum [address] [place] [phone] 2024 Office Visit Rheumatology Fabian Jensen [facility] [address] [facility] [address] Scheduled Orders Name Type Priority Associated Diagnoses Orde r Schedule MYCODE SUBSEQUENT ADULT Lab Routine [employer] Other*[id number] Every 6 Months for 2 Occurrences starting 03/08/2023 until 03/27/2024 Health Maintenance Due Date Last Done Comments DISCUSS TOBACCO CESSATION (REFER TO SMARTSET #5521) 1950 Alpha-1 Antitrypsin 1969 Hepatitis C Screening 1969 DTaP,Tdap,and Td Vaccines (1 - Tdap) 1970 Cologuard 02/11/1996 Colonoscopy 02/11/1996 Colorectal Cancer Screening 02/11/1996 Fecal Occult Blood Test 02/11/1996 Sigmoidoscopy 02/11/1996 LUNG CANCER SCREENING - USE SMARTSET 83344 2001 Zoster Vaccines (1 of 2) 2001 Pneumococcal Vaccine: 65+ Years (2 - PPSV23 or PCV20) 12/20/2017 10/25/2017 Depression Screening, Annual for Pts 12 and Over 03/28/2021 03/28/2020 COVID-19 Vaccine (4 - Moderna series) 08/29/2021 07/04/2021, 10/24/2020, 09/26/2020 Influenza Vaccine (FLU shot) (#1) 2023 04/26/2022, 07/04/2021, 03/28/2020, Additional history exists Mammogram 06/08/2023 06/08/2022, 09/2020, 05/14/2020, Additional history exists TSH 09/18/2023 09/17/2022, 07/18, 04/26/2022, Additional history exists O2 ASSESSMENT COMPLETED IN PAST YEAR FOR COPD 10/15/2023 10/14/2022 DXA Scan 02/18/2024 02/17/2022, 06/17, 04/14/2017, Additional history exists HbA1c 02/24/2024 02/23/2023, 04/17, 03/30/2021, Additional history exists Lipid Panel 11/26/2024 11/27/2019, 11/23/2002 VITAMIN D LEVEL ONCE IN A LIFETIME-USE SMARTSET# [id number] Completed 02/23/2023, 04/26/2022, 07/16/2021, Additional history exists [...] as of this encounter Visit Diagnoses Diagnosis [employer] Other*[id number] documented in this encounter Care Teams Bin Piler Relationship Specialty Start Date End Date Jose Alejandro Qureshi MD [address] [place] [address] [place] [address] PCP - General Family Medicine 08/05/22 documented as of this encounter
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
--- OUTSIDE RECORDS SUMMARY | 2023-06-05 09:42 | External Medical Summary | Summary of Care ---
Author Name Unknown Organization [facility] Address [address] [place] [address] Phone [phone] Care Team Providers Care Bleach Range Operator Name Role Phone Jose Alejandro Qureshi MD Primary Care Provide r Reason for Visit * Reason Comments eRx-Medication Refill Encounter Details Date Type Department Care Team Description 03/07/2023 Refill Family Medicine [address] [phone] Jose Alejandro Qureshi MD [address] [place] [address] [place] [address] COPD, mild (HCC) Allergies Active Allergy Reactions Severity Noted Date Comments Penicillins 05/12/2001 documented as of this encounter (statuses as of 03/08/2023) Medications Medication Sig Dispensed Refills Start Date End Date Status Garlique 400 MG Oral Tablet Delayed Release Take by mouth . 0 Active Multiple Vitamins-Minerals (MULTIVITAMIN ADULTS 50+) TABS Take by mouth. 0 Acti ve vitamin c (ASCORBIC ACID) 500 MG Tablet Take 1 Tablet by mouth in the morning. 0 Active Magnesium Cl-Calcium Carbonate 71.5-119 MG Oral Tablet Delayed Release Take by mouth. 0 Activ e MegaRed [place]-3 Krill Oil 500 MG Oral Capsule Take by mouth. 0 Active Ventolin HFA 108 (90 Base) MCG/ACT Inhalation Aerosol SolutionIndications :COPD, mild (HCC) Inhale 2 Puffs by mouth every 4 hours as needed for Wheezing. 18 g 3 3 Active Additional Information Patient not taking.Reported on [...] EVERY DAY 270 Tablet 1 3 Active tiZANidine HCl 4 MG Oral Tablet (Zanaflex)Indicatio ns:Leg cramps Take 1 Tablet by mouth every 6 hours as needed for Muscle spasms. 120 Tablet 0 3 Active Fluticasone-Salmete rol 250-50 MCG/ACT Inhalation Aerosol Powder Breath Activated (Advair Diskus)Indications: COPD, mild (HCC) INHALE 1 PUFF BY MOUTH IN THE MORNING AND BEFORE BEDTIME 60 Each 3 3 Active Fluticasone-Salmete rol 250-50 MCG/ACT Inhalation Aerosol Powder Breath Activated (Advair Diskus)Indications: COPD, mild (HCC) Inhale 1 Puff by mouth in the morning and 1 Puff before bedtime. 60 Each 3 3 03/08/20 23 Discontinued Hospital, Clinic, or Other Facility Administered Medication [...] encounter Miscellaneous Notes * Telephone Encounter - Serenity Henning RPh - 03/08/2023 1:19 PM EDTSigned Prescriptions: Disp Refills Fluticasone-Salmeterol 250-50 MCG/ACT Inha*60 Each3 Sig: INHALE 1 PUFF BY MOUTH IN THE MORNING AND BEFORE BEDTIMEAuthorizing Provider: Krystin QURESHI User: SERENITY HENNING documented in this encounter Plan of Treatment Upcoming Encounters Date Type Specialty Care Team Description 03/08/2023 Office Visit General Surgery Tara Parra MD [address] [place] [address] 03/23/2023 Office Visit Family Medicine Jose Alejandro Qureshi MD [address] [place] [address] [place] [address] 03/23/2023 Laboratory Laboratory [place], Lab [address] [place] [address] 08/08/2023 Nurse Only Rheumatology [place], Nurse [address] [place] [phone] 2024 Office Visit Rheumatology Fabian Jensen MD [address] [facility] [place] [address] Health Maintenance Due Date Last Done Comments DISCUSS TOBACCO CESSATION (REFER TO LOLY #1163) 1950 Alpha-1 Antitrypsin 1969 Hepatitis C Screening 1969 DTaP,Tdap,and Td Vaccines (1 - Tdap) 1970 Cologuard 02/11/1996 Colonoscopy 02/11/1996 Colorectal Cancer Screening 02/11/1996 Fecal Occult Blood Test 02/11/1996 Sigmoidoscopy 02/11/1996 LUNG CANCER SCREENING - USE SMARTSET 61624 2001 Zoster Vaccines (1 of 2) 2001 [...] D LEVEL ONCE IN A LIFETIME-USE SMARTSET# [id number] Completed 02/23/2023, 04/26/2022, 07/16/2021, Additional history exists [...] as of this encounter Visit Diagnoses Diagnosis COPD, mild (HCC) Chronic airway obstruction, not elsewhere classified documented in this encounter Care Teams Bleach Range Operator Relationship Specialty Start Date End Date Jose Alejandro Qureshi MD [address] [place] [address] [place] [address] PCP - General Family Medicine 08/05/22 documented as of this encounter
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
--- OUTSIDE RECORDS SUMMARY | 2023-06-05 09:42 | External Medical Summary ---
Author Name Unknown Address Unknown Organization K01:[facility] [place] - [address] [place] [address] Laboratory Report Ordering Provider Test Date Status JALEN MARQUEZ 02/23/2023 11:40:10 Final Observation Date Value Abnormality Reference (Units ) Status MYCODE SPECIMEN-SST 02/23/2023 11:40:10 Freezing of extracted DNA, whole blood and/or serum. Final Performing Location [facility] [place] - [address] [place] [address]
--- OUTSIDE RECORDS SUMMARY | 2023-06-05 09:42 | External Medical Summary ---
Author Name Unknown Address Unknown Organization K01:[facility] [place] - [address] [place] [address] Laboratory Report Ordering Provider Test Date Status JALEN MARQUEZ 02/23/2023 11:40:10 Final Observation Date Value Abnormality Reference (Units ) Status MYCODE SPECIMEN-SST 02/23/2023 11:40:10 Freezing of extracted DNA, whole blood and/or serum. Final Performing Location [facility] [place] - [address] [place] [address]
--- OUTSIDE RECORDS SUMMARY | 2023-06-05 09:42 | External Medical Summary | Summary of Care ---
Author Name Unknown Organization [facility] Address [address] [facility] [place] [address] Phone [phone] Care Team Providers Care Legislative Aide Name Role Phone Jose Alejandro Qureshi MD Primary Care Provide r Reason for Visit * Reason Onset Date Comments Medication Refill 04/04/2023 Encounter Details Date Type Department Care Team Description 04/04/2023 Refill Family Medicine [address] [place] [id number] Jose Alejandro Qureshi MD [address] [place] [address] [place] [address] Leg cramps Allergies Active Allergy Reactions Severity [...] Release Take by mouth. 0 Active MegaRed Ronda-3 Krill Oil 500 MG Oral Capsule Take [...] Muscle spasms. 120 Tablet 0 04/04/2023 Active tiZANidine HCl 4 MG Oral Tablet (Zanaflex)Indication s:Leg cramps Take 1 Tablet by mouth every 6 hours as needed for Muscle spasms. 120 Tablet 0 03/07/2023 3 Discontinue d(Refill) Hospital, Clinic, or Other [...] - Jose Alejandro Qureshi MD - 04/04/2023 3:29 PM EDT Signed Prescriptions: Disp Refills tiZANidine HCl 4 MG Oral Tablet (Zanaflex) 120 Ta*0 Sig: Take 1 Tablet by mouth every 6 hours as needed for Muscle spasms. Authorizing Provider: JOSE ALEJANDRO QURESHI * Telephone Encounter - Maya Dobbs RN - 04/04/2023 2:35 PM EDTPending Prescriptions: Disp Refills tiZANidine HCl 4 MG Oral Tablet (Zanaflex) 120 Ta*0 Sig: Take 1 Tablet by mouth every 6 hours as needed for Muscle spasms. * Telephone Encounter - Dorota Melissa - 04/04/2023 2:20 PM EDT Did you pend patient's preferred pharmacy and medication before forwarding?yes Pharmacy: [id number] [id number] [facility] Pending Prescriptions: Disp Refills tiZANidine HCl 4 MG Oral Tablet (Zanaflex)120 Ta*0 Sig: Take 1 Tablet by mouth every 6 hours as needed for Muscle spasms. Last Visit: 03/23/2023 (in office), Visit date not found (telemedicine) Next Visit: 09/21/2023 If no future appointments scheduled, and last appointment is greater than a year ago, please schedule patient for a follow-up appointment Last date the medication was ordered: 03/07/2023 90 DAY SUPPLY Is this request for a controlled substance?No Urine Drug Screen:No results found for this or any previous visit. Patient Phone Numbers Labs: Lab Results Component Value Date/Time CREAT 0.7 02/23/2023 11:40 AM CREAT 0.7 03/28/2020 10:27 AM POTASSIUM 4.4 02/23/2023 11:40 AM POTASSIUM 4.5 03/28/2020 10:27 AM TSH 0.38 09/17/2022 09:11 AM TSH 2.77 03/28/2020 10:27 AM LDLCALC 114 (A) 11/27/2019 12:00 AM LDLCALC 173 (HH) 11/23/2002 12:12 PM ALT 20 05/12/2001 12:11 PM HGBA1C 6.1 (H) 02/23/2023 11:40 AM HGBA1C 5.8 (A) 11/27/2019 12:00 AM documented in this encounter Plan of Treatment Upcoming Encounters Date Type Specialty Care Team Description 04/22/2023 Imaging Radiology 06/01/2023 Office Visit General Surgery Tara Parra MD [address] [place] [address] 08/08/2023 Nurse Only Rheumatology Fred, Nurse Sindy [address] [place] [phone] 09/21/2023 Office Visit Family Medicine Jose Alejandro Qureshi MD [address] [place] [address] [place] [address] 2024 Office Visit Rheumatology Fabian Jensen MD [facility] [place] [address] Health Maintenance Due Date Last Done Comments DISCUSS TOBACCO CESSATION (REFER TO SMARTSET #1854) 1950 Alpha-1 Antitrypsin 1969 Hepatitis C Screening 1969 DTaP,Tdap,and Td Vaccines (1 - Tdap) 1970 Cologuard 02/11/1996 Colonoscopy 02/11/1996 Colorectal Cancer Screening 02/11/1996 Fecal Occult Blood Test 02/11/1996 Sigmoidoscopy 02/11/1996 LUNG CANCER SCREENING - USE SMARTSET 09827 2001 Zoster Vaccines (1 of 2) 2001 Pneumococcal Vaccine: 65+ Years (2 - PPSV23 or PCV20) 12/20/2017 10/25/2017 Depression Screening 03/28/2021 03/28/2020 COVID-19 Vaccine (4 - Moderna series) 08/29/2021 07/04/2021, 10/24/2020, 09/26/2020 Influenza Vaccine (FLU shot) (#1) 2023 04/26/2022, 07/04/2021, 03/28/2020, Additional history exists Mammogram 06/08/2023 06/08/2022, 110 09/2020, 05/14/2020, Additional history exists TSH 09/18/2023 09/17/2022, 07/18, 04/26/2022, Additional history exists O2 ASSESSMENT COMPLETED IN PAST YEAR FOR COPD 10/15/2023 10/14/2022 DXA Scan 02/18/2024 02/17/2022, 06/17, 04/14/2017, Additional history exists HbA1c 02/24/2024 02/23/2023, 04/17, 03/30/2021, Additional history exists Lipid Panel 11/26/2024 11/27/2019, 11/23/2002 VITAMIN D LEVEL ONCE IN A LIFETIME-USE SMARTSET# [id number] Completed 02/23/2023, 04/26/2022, 07/16/2021, Additional history exists [...] as of this encounter Visit Diagnoses Diagnosis Leg cramps Cramp of limb documented in this encounter Care Teams Legislative Aide Relationship Specialty Start Date End Date Jose Alejandro Qureshi MD [address] [place] [address] [place] [address] PCP - General Family Medicine 08/05/22 documented as of this encounter
--- OUTSIDE RECORDS SUMMARY | 2023-06-05 09:42 | External Medical Summary ---
Author Name Unknown Address Unknown Organization K01:[facility] [place] - [address] [place] [address] Laboratory Report Ordering Provider Test Date Status JULISSA FLYNNMio 02/23/2023 11:40:10 Debora l Observation Date Value Abnormality Reference (Units ) Status HbA1C 02/23/2023 11:40:10 6.1 Above high normal 4. 0-5.6 (%) Final The use of HbA1c to monitor glycemic status is based on normal hemoglobin and HbA composition. This test should not be used in patients with abnormal hemoglobin that affects the half life of the red blood cell or the in vivo glycation rates. Glucose, estimated average 02/23/2023 11:40:10 128 Above high normal <126 (mg/dL) Harshal al Performing Location [facility] [place] - [address] [place] [address]
--- OUTSIDE RECORDS SUMMARY | 2023-06-05 09:42 | External Medical Summary | Summary of Care ---
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 Name Role Phone Jose Alejandro Qureshi MD Primary Care Provide r Reason for Referral * Evaluate & Treat - Unlimited Visits (Within 10 days (routine)) - Authorized Specialty Diagnoses / Procedures Referred By Contac t Referred To Contact General Surgery Diagnoses Non-recurrent unilateral inguinal hernia without obstruction or gangrene Chandra Neal MD [address] [place] [address] [place] [id number] Referral ID Status Reason Start Date Expiration Date Visits Requested Visits Authorized [id number] Authorized Specialty Services Required 02/09/2023 999 999 Question Answer Referral Priority Within 10 days (routine) What condition is the patient being seen for? General Surgery Conditions What condition is the patient being seen for? Hernia (excluding Hiatal) Reason for Visit * Reason Comments Acute Encounter Details Date Type Department Care Team Description 02/09/2023 Office Visit Family Medicine [address] [place] [phone] Chandra Neal MD [address] [place] [address] [place] [phone] Prediabetes*; Acquired hypothyroidism; Leg cramps; Non-recurrent unilateral inguinal hernia without obstruction or gangrene; COPD, mild (HCC) Allergies Active Allergy Reactions Severity Noted Date Comments Penicillins 05/12/2001 documented as of this encounter (statuses as of 02/09/2023) Medications Medication Sig Dispensed Refills Start Date [...] Take by mouth. 0 Activ e MegaRed [place]-3 Krill Oil 500 MG Oral Capsule Take by mouth. 0 Active Ventolin HFA 108 (90 Base) MCG/ACT Inhalation Aerosol SolutionIndication s:COPD, mild (HCC) Inhale 2 Puffs by mouth every 4 hours as needed for Wheezing. 18 g 3 3 Active Additional Information Patient not taking.Reported on 02/09/2023 Spiriva HandiHaler 18 MCG Inhalation Capsule (tiotropium bromide)Indication s:COPD, mild (HCC) Inhale 1 Capsule by mouth in the morning. For inhaler only, do not swallow.. 30 Capsule 6 3 Active Fluticasone-Salmet portia 250-50 MCG/ACT Inhalation Aerosol Powder Breath Activated (Advair Diskus)Indications :COPD, mild (HCC) Inhale 1 Puff by mouth in the morning and 1 Puff before bedtime. 60 Each 3 3 Active Levothyroxine Sodium 100 MCG Oral Tablet (Levoxyl)Indicatio ns:Acquired hypothyroidism TAKE 1 TABLET DAILY 30 MINUTES PRIOR TO FIRST MEAL OF THE DAY AND OTHER MEDS 90 Tablet 1 3 Active Montelukast Sodium 10 MG Oral Tablet (Singulair)Indicat ions:Seasonal allergies Take 1 Tablet by mouth in the morning. 30 Tablet 5 3 Active Omeprazole 20 MG Oral Capsule Delayed Release (PriLOSEC) TAKE 1 CAPSULE BY MOUTH TWICE A DAY 180 Capsule 1 3 Active Calcium Carb-Cholecalcifer ol 600-10 MG-MCG Oral Tablet TAKE 3 TABLETS BY MOUTH EVERY DAY 270 Tablet 1 3 Active tiZANidine HCl 4 MG Oral Tablet (Zanaflex)Indicati ons:Leg cramps Take 1 Tablet by mouth every 6 hours as needed for Muscle spasms. 120 Tablet 0 07/26/202 3 Active Azithromycin 250 MG Oral Tablet (Zithromax)Indicat ions:COPD, mild (HCC) Take 2 tabs by mouth on the first day, then 1 tab daily on days two through five 6 Tablet 0 3 023 Active predniSONE 20 MG Oral Tablet (Deltasone)Indicat ions:COPD, mild (HCC) Take 1 Tablet by mouth in the morning for 5 days. 5 Tablet 0 3 023 Active tiZANidine HCl 2 MG Oral Tablet (Zanaflex) TAKE 1 TABLET BY MOUTH EVERY 6 HOURS NEEDED FOR MUSCLE SPASM 120 Tablet 0 3 023 Discontinued Methocarbamol 500 MG Oral Tablet (Robamol)Indicatio ns:Chronic myofascial pain Take 1 Tablet by mouth 3 times a day as needed for Muscle spasms. For muscle spasm 30 Tablet 0 3 023 Discontinued(Me dication/Dose Changed) Hospital, Clinic, or Other Facility Administered Medication Ordered Dose Route Frequency Start Date End Date Status Albuterol Sulfate (Proventil) (2.5 MG/3ML) 0.083% inhalation solution 2.5 mgIndications:COPD, mild (HCC) 2.5 mg NEBULIZER ONCE PRN 08/05/2022 08/05/2023 Active documented as of this encounter (statuses as of 02/09/2023) Active Problems Problem Noted Date COPD, mild 08/05/2022 Chronic myofascial pain 04/26/2022 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 05/26/2020 Overview: S/p multiple surgeries from [facility] Prediabetes 04/24/2020 Gastroesophageal reflux disease without esophagitis 03/28/2020 Acquired hypothyroidism 03/28/2020 BMI less than 19,adult 03/28/2020 Senile osteoporosis 03/28/2020 Tobacco use disorder 03/28/2020 Celiac disease documented as of this encounter (statuses as of 02/09/2023) Resolved Problems Problem Noted Date Resolved Date Trigger middle finger of left hand 08/15/2020 03/30/2021 COPD exacerbation 05/26/2020 04/26/2022 Other atopic dermatitis 05/12/2001 03/23/20 20 Overview: ICD-10 update of inactive term LOSS OF TEETH, ACQUIRED 03/23/20 20 documented as of this encounter (statuses as of 02/09/2023) Immunizations Name Administration Dates Next Due COVID-19 [...] Day Cigarettes 1 29 Smokeless Tobacco: Never Tobacco Cessation:Ready to Q uit: Not Asked; Counseling Given: Not Answered Comments:started age 26 Alcohol Use Standard Drinks/Week [...] Sign Reading Time Taken Comments Blood Pressure 110/70 02/09/2023 12:30 PM EDT Pulse 88 02/09/2023 12:30 PM EDT Temperature 36.8 C (98.2 F) 02/09/2023 12:30 PM E DT Respiratory Rate - - Oxygen Saturation - - Inhaled Oxygen Concentration - - Weight 48.1 kg (106 lb) 02/09/2023 12:30 PM EDT Height - - Body Mass Index 17.45 10/14/2022 2:31 PM EDT documented in this encounter Progress Notes * Chandra Neal MD - 02/09/2023 12:19 PM EDT [facility] liver for years in [facility] and moved back here. She is still smoking. He Celiac disease is quiet right now. 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 She gets really bad muscle cramps and spasms, more at night. She has moderate pulmonary disease and right now is coughing More, makingmore mucus. She has a left inguinal or femoral hernia, would like to see a surgeon. Patient Active Problem List Diagnosis Code Celiac disease K90.0 Gastroesophageal reflux disease without esophagitis K21.9 Acquired hypothyroidism E03.9 BMI less than 19,adult Z68.1 Senile osteoporosis M81.0 Tobacco use disorder F17.200 Prediabetes R73.03 Ulnar neuropathy of both upper extremities G56.23 Chronic myofascial pain M79.18, G89.29 COPD, mild (HCC) J44.9 Past Medical History: Diagnosis Date Acquired hypothyroidism 03/28/2020 BMI less than 19,adult 03/28/2020 Celiac disease Chronic myofascial pain 04/26/2022 COPD, severity to be determined (HCC) 05/26/2020 DENTURES Gastroesophageal reflux disease without esophagitis 03/28/2020 Tobacco use disorder Ulnar neuropathy of both upper extremities 05/26/2020 S/p multiple surgeries from [facility] Past Surgical History: Procedure Laterality Date EGD, FLEXIBLE, DIAGNOSTIC 09/24/2021 normal / ESOPHAGOGASTRODUODENOSCOPY (EGD), FLEXIBLE, TRANSORAL, DIAGNOSTIC performed by Glenn Solo MD at [facility] MAMMOGRAM - BILATERAL 11/06/2001 REMOVAL OF TONSILS, AGE 12+ 07/18/1964 REMOVE GALLBLADDER 07/18/1970 Did have gall stones TOTAL ABD HYSTERECTOMY W/WO REMOVAL OF TUBE(S) has ovaries Review of patient's allergies indicates: Allergen Reactions Penicillins Social History Socioeconomic History Marital status: Spouse name: Not on file Number of children: 2 Years of education: Not on file Highest education level: Not on file Occupational History Employer: [email or web address] Tobacco Use Smoking status: Every Day Packs/day: 1.00 Years: 29.00 Pack years: 29.00 Types: Cigarettes Smokeless tobacco: Never Tobacco comments: started age 26 Substance and Sexual Activity Alcohol use: No Drug use: No Sexual activity: Not on file Other Topics Concern Not on file Social History Narrative Not on file Social Determinants of Health Financial Resource Strain: Not on file Food Insecurity: Not on file Transportation Needs: Not on file Physical Activity: Not on file Stress: Not on file Social Connections: Not on file Intimate Partner Violence: Not on file Housing Stability: Not on file Current Outpatient Medications Medication Sig Dispense Refill Garlique 400 MG Oral Tablet Delayed Release Take by mouth . Multiple Vitamins-Minerals (MULTIVITAMIN ADULTS 50+) TABS Take by mouth. vitamin c (ASCORBIC ACID) 500 MG Tablet Take 500 mg by mouth daily. Magnesium Cl-Calcium Carbonate (SLOW-MAG) 71.5-119 MG TBEC Take by mouth. MegaRed [place]-3 Krill Oil 500 MG Oral Capsule Take by mouth. Ventolin HFA 108 (90 Base) MCG/ACT Inhalation Aerosol Solution Inhale 2 Puffs by mouth every 4 hours as needed for Wheezing. 18 g 3 Spiriva HandiHaler 18 MCG Inhalation Capsule (tiotropium bromide) Inhale 1 Capsule by mouth in the morning. For inhaler only, do not swallow.. 30 Capsule 6 Fluticasone-Salmeterol 250-50 MCG/ACT Inhalation Aerosol Powder Breath Activated (Advair Diskus) Inhale 1 Puff by mouth in the morning and 1 Puff before bedtime. 60 Each 3 Levothyroxine Sodium 100 MCG Oral Tablet (Levoxyl) TAKE 1 TABLET DAILY 30 MINUTES PRIOR TO FIRST MEAL OF THE DAY AND OTHER MEDS 90 Tablet 1 Montelukast Sodium 10 MG Oral Tablet (Singulair) Take 1 Tablet by mouth in the morning. 30 Tablet 5 Omeprazole 20 MG Oral Capsule Delayed Release (PriLOSEC) TAKE 1 CAPSULE BY MOUTH TWICE A DAY 180 Capsule 1 tiZANidine HCl 2 MG Oral Tablet (Zanaflex) TAKE 1 TABLET BY MOUTH EVERY 6 HOURS NEEDED FOR MUSCLE SPASM 120 Tablet 0 Calcium Carb-Cholecalciferol 600-10 MG-MCG Oral Tablet TAKE 3 TABLETS BY MOUTH EVERY DAY 270 Tablet 1 Methocarbamol 500 MG Oral Tablet (Robamol) Take 1 Tablet by mouth 3 times a day as needed for Muscle spasms. For muscle spasm 30 Tablet 0 Current Facility-Administered Medications Medication Dose Route Frequency Provider Last Rate Last Admin Albuterol Sulfate (Proventil) (2.5 MG/3ML) 0.083% inhalation solution 2.5 mg 2.5 mg Nebulizer Once PRN Jose Alejandro Qureshi MD 2.5 mg at 08/27/22 1342 I told her we are not going to be prescribing both methocarbamol and the tizanidine. We can increase it to 4 mg though. O: Blood pressure 110/70, pulse 88, temperature 36.8 C (98.2 F), temperature source Tympanic, weight 48.1 kg (106 lb). Lungs have some wheezing and rhonchi. Heart regular A: Prediabetes (Primary) Acquired hypothyroidism Leg cramps - MAGNESIUM; Future; Expected date: 02/09/2023 - tiZANidine HCl 4 MG Oral Tablet (Zanaflex); Take 1 Tablet by mouth every 6 hours as needed for Muscle spasms. Non-recurrent unilateral inguinal hernia without obstruction or gangrene - SURGERY REFERRAL OP COPD, mild (HCC) - Azithromycin 250 MG Oral Tablet (Zithromax); Take 2 tabs by mouth on the first day, then 1 tab daily on days two through five - predniSONE 20 MG Oral Tablet (Deltasone); Take 1 Tablet by mouth in the morning for 5 days. Follow Up: Return if symptoms worsen or fail to improve. documented in this encounter Nursing Notes * Malorie Padron LPN - 02/09/2023 12:19 PM EDT Chief Complaint Patient presents with Acute Inhaler Fluticasone causing increase in cough She states she has a Sinus infection cough up yellow green mucus. No chest xray Nasal drainage with Clear Mucus Duration- Since started on Fluticason and Spiriva inhaler Muscle spasms in hands and all over body. Prescribed Methocarbamol, but ins ref without PA She is taking Tizanidine and states not working Should Not take Both together Hernia Left abd Area Ukifrdvl-6-3 mo Denies pain The patient has been properly identified by confirmation of name and date of . documented in this encounter Plan of Treatment Upcoming Encounters Date Type Specialty Care Team Description 02/23/2023 Office Visit General Surgery Tara Parra MD [address] [place] [address] 03/23/2023 Office Visit Family Medicine Jose Alejandro Qureshi MD [address] [place] [address] [place] [address] 03/23/2023 Laboratory Laboratory [address] [place] [address] 08/08/2023 Nurse Only Rheumatology [place], Nurse [address] [place] [phone] 2024 Office Visit Rheumatology Fabian Jensen MD [address] [place] [address], [place] [address] Scheduled Orders Name Type Priority Associated Diagnoses Orde r Schedule MAGNESIUM Lab Routine Leg cramps Expected: 02/09/2023 (Approximate), Expires: 02/09/2024 Scheduled Referrals Name Type Priority Associated Diagnoses Orde r Schedule SURGERY REFERRAL OP Referral Within 10 da ys (routine) Non-recurrent unilateral inguinal hernia without obstruction or gangrene Ordered: 02/09/2023 Health Maintenance Due Date Last Done Comments DISCUSS TOBACCO CESSATION (REFER TO SMARTSET #5913) 1950 Alpha-1 Antitrypsin 1969 Hepatitis C Screening 1969 DTaP,Tdap,and Td Vaccines (1 - Tdap) 1970 Cologuard 02/11/1996 Colonoscopy 02/11/1996 Colorectal Cancer Screening 02/11/1996 Fecal Occult Blood Test 02/11/1996 Sigmoidoscopy 02/11/1996 LUNG CANCER SCREENING - USE SMARTSET 61271 2001 Zoster Vaccines (1 of 2) 2001 [...] D LEVEL ONCE IN A LIFETIME-USE SMARTSET# [id number] Completed 04/26/2022, 07/16/2021, 01/06/2021, Additional history exists [...] as of this encounter Visit Diagnoses Diagnosis Prediabetes- Primary Other abnormal glucose Acquired hypothyroidism Unspecified hypothyroidism Leg cramps Cramp of limb Non-recurrent unilateral inguinal hernia without obstruction or gangrene COPD, mild (HCC) Chronic airway obstruction, not elsewhere classified documented in this encounter Care Teams Metal Sprayer Production Relationship Specialty Start Date End Date Jose Alejandro Qureshi MD [address] [place] [address] [place] [address] PCP - General Family Medicine 08/05/22 documented as of this encounter
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
--- OUTSIDE RECORDS SUMMARY | 2023-06-05 09:42 | External Medical Summary | Summary of Care ---
Author Name Unknown Organization [facility] Address [address] [place] [address] Phone [phone] Care Team Providers Care Bevel Polisher Name Role Phone Jose Alejandro Qureshi MD Primary Care Provide r Reason for Visit * Reason Onset Date Comments Advice 01/31/2023 Medication Problem 01/31/2023 Methocarbamol Encounter Details Date Type Department Care Team Description 01/31/2023 Telephone Family [address] [place] [phone] Jose Alejandro Qureshi MD [address] [place] [address] [place] [address] Advice; Medication Problem (Methocarbamol ) Allergies Active [...] Take by mouth. 0 Acti ve MegaRed [place]-3 Krill Oil 500 MG Oral Capsule Take [...] MCG/ACT Inhalation Aerosol Powder Breath Activated (Advair Diskus)Indications:LOAN COORDINATOR D, mild (HCC) Inhale 1 Puff by [...] encounter Miscellaneous Notes * Telephone Encounter - Chandra Neal MD - 02/08/2023 4:43 PM EDT She should not be on both and I did not order either of them * Telephone Encounter - Darby Galindo LPN - 02/08/2023 4:04 PM EDT Pt scheduled to see Dr. Neal tomorrow - FYI to Dr. Neal Received a fax from [facility] pharmacy regarding script for Methocarbamol It states: [...] visit * Telephone Encounter - Demian Perdomo [facility] - 01/31/2023 4:04 PM EDT Pt calling [...] cannot sleep. Please advise Thank you, Demian Perdomo, Adriel, ERVIN Clinical Pharmacist [facility] ([facility] (formerly Telepharmacy) 01/31/23 4:16 PM [phone] * Telephone Encounter - SANTOS [facility] - 01/31/2023 4:01 PM EDT Patient called in with side effects from inhalers. Warm transferred to demian for consultation. Thank you, Elis Villalpando [facility] Veterinary Surgeon II [facility])(Formerly [facility]) 01/31/2023,4:02 PM documented in this encounter Plan of Treatment Upcoming Encounters Date Type Specialty Care Team Description 02/09/2023 Office Visit Family Medicine Chandra Neal MD [address] [place] [address] [place] [phone] 03/23/2023 Office Visit Family Medicine Jose Alejandro Qureshi MD [address] [place] [address] [place] [address] 03/23/2023 Laboratory Laboratory [facility] [address] [place] [address] 08/08/2023 Nurse Only Rheumatology [place], Nurse Rheum [address] [place] [phone] 2024 Office Visit Rheumatology Fabian Jensen MD [address] [facility], [place] [address] Health Maintenance Due Date Last Done Comments DISCUSS TOBACCO CESSATION (REFER TO SMARTSET #1830) 1950 Alpha-1 Antitrypsin 1969 Hepatitis C Screening 1969 DTaP,Tdap,and Td Vaccines (1 - Tdap) 1970 Cologuard 02/11/1996 Colonoscopy 02/11/1996 Colorectal Cancer Screening 02/11/1996 Fecal Occult Blood Test 02/11/1996 Sigmoidoscopy 02/11/1996 LUNG CANCER SCREENING - USE SMARTSET 21362 2001 Zoster Vaccines (1 of 2) 2001 Pneumococcal Vaccine: 65+ Years (2 - PPSV23 or PCV20) 12/20/2017 10/25/2017 Depression Screening, Annual for Pts 12 and Over 03/28/2021 03/28/2020 COVID-19 Vaccine (4 - Moderna series) 08/29/2021 07/04/2021, 10/24/2020, 09/26/2020 Influenza Vaccine (FLU shot) (#1) 2023 04/26/2022, 07/04/2021, 03/28/2020, Additional history exists HbA1c 04/26/2023 04/26/2022, 03/18, 11/27/2019 Mammogram 06/08/2023 06/08/2022, 11/0 09/2020, 05/14/2020, Additional history exists TSH 09/18/2023 09/17/2022, 07/18, 04/26/2022, Additional history exists O2 ASSESSMENT COMPLETED IN PAST YEAR FOR COPD 10/15/2023 10/14/2022 DXA Scan 02/18/2024 02/17/2022, 06/17, 04/14/2017, Additional history exists Lipid Panel 11/26/2024 11/27/2019, 11/23/2002 VITAMIN D LEVEL ONCE IN A LIFETIME-USE SMARTSET# 30248 Completed 04/26/2022, 07/16/2021, 01/06/2021, Additional history exists [...] unspecified documented in this encounter Care Teams Bevel Polisher Relationship Specialty Start Date End Date Jose Alejandro Qureshi MD [address] [place] [address] [place] [address] PCP - General Family Medicine 08/05/22 documented as of this encounter
--- OUTSIDE RECORDS SUMMARY | 2023-06-05 09:42 | External Medical Summary ---
Author Name Unknown Address Unknown Organization [facility] [address] [place] [address] Laboratory Report Ordering Provider Test Date Status OSVALDOMARCO 02/23/2023 11:40:10 Final Observation Date Value Abnormality Reference (Units ) Status BUN 02/23/2023 11:40:10 7 6-20 (mg/dL) Final Creatinine 02/23/2023 11:40:10 0.7 0.5-1.0 (mg/dL) Final Glomerular filtration rate/1.73 sq M.predicted [Volume Rate/Area] in Serum, Plasma or Blood by Creatinine-based formula (CKD-EPI) 02/23/2023 11:40:10 >90 >=60 (mL/min) Final eGFR is calculated based on the CKD-EPI 2020 equation SODIUM 02/23/2023 11:40:10 141 135-146 (m mol/L) Final Potassium 02/23/2023 11:40:10 4.4 3.5-5.1 (m mol/L) Final Cl 02/23/2023 11:40:10 107 98-107 (mm ol/L) Final CO2 02/23/2023 11:40:10 25 22-32 (mmo l/L) Final Anion gap 02/23/2023 11:40:10 9 7-15 (mmol /L) Final Glucose 02/23/2023 11:40:10 90 70-120 (mg /dL) Final Calcium 02/23/2023 11:40:10 8.3 Below low normal 8.4 -10.2 (mg/dL) Final [facility] [place] [address]
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
--- OUTSIDE RECORDS SUMMARY | 2023-06-05 09:42 | External Medical Summary | Summary of Care ---
Author Name Unknown Organization [facility] Address [address] [place] [address] Phone [phone] Care Team Providers Care National Coverage Specialist Name Role Phone Jose Alejandro Qureshi MD Primary Care Provide r Reason for Referral * Evaluate & Treat - Unlimited Visits (Within 3 days (urgent)) - Authorized Specialty Diagnoses / Procedures Referred By Contac t Referred To Contact Pulmonary Diseases / Pulmonary Diagnoses Solitary pulmonary nodule Ismael Finn MD [address] [place] [address] Referral ID Status Reason Start Date Expiration Date Visits Requested Visits Authorized [id number] Authorized Specialty Services Required 04/25/2023 999 999 Question Answer Referral Priority Within 3 Days (Urgent) Primary Reason for Referral? Lung Nodule/Mass Reason for Visit * Reason Onset Date Comments STAIR Lung Nodule 04/25/2023 Encounter Details Date Type Department Care Team Description 04/25/2023 Telephone STAIR LUNG NODULE [address] [place] [address] Program, Stair [address] [place] [address] STAIR Lung Nodule Allergies Active Allergy Reactions [...] Release Take by mouth. 0 Active MegaRed [place]-3 Krill Oil 500 MG Oral Capsule Take [...] questions. Elham Ramirez LPN Lung Cancer Screening Soc Analyst [phone] ([id number]) documented in this encounter Plan of Treatment Upcoming Encounters Date Type Specialty Care Team Description 06/01/2023 Office Visit General Surgery Tara Parra MD [address] [place] [address] 08/08/2023 Nurse Only Rheumatology [place], Nurse [address] [place] [phone] 09/21/2023 Office Visit Family Medicine Jose Alejandro Qureshi MD [address] [place] [address] [place] [address] 2024 Office Visit Rheumatology Fabian Jensen MD [address] [employer] [place] [address] Scheduled Referrals Name Type Priority Associated Diagnoses Order Schedule STAIR LUNG NODULE REFERRAL OP (SYSTEM FOR TRACKING ABNORMALITIES OF IMPORTANCE RELIABLY) Referral Within 3 days (urgent) Solitary pulmonary nodule Ordered: 04/25/2023 Health Maintenance Due Date Last Done Comments DISCUSS TOBACCO CESSATION (REFER TO SMARTSET #1437) 1950 Alpha-1 Antitrypsin 1969 Hepatitis C Screening [...] D LEVEL ONCE IN A LIFETIME-USE SMARTSET# [id number] Completed 02/23/2023, 04/26/2022, 07/16/2021, Additional history exists LUNG CANCER SCREENING - USE SMARTSET [id number] Completed 04/22/2023 GARDASIL-HPV IMMUNIZATION SERIES Aged Out [...] Primary documented in this encounter Care Teams National Coverage Specialist Relationship Specialty Start Date End Date Jose Alejandro Qureshi MD [address] [place] [address] [place] [address] PCP - General Family Medicine 08/05/22 documented as of this encounter
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
--- OUTSIDE RECORDS SUMMARY | 2023-06-05 09:42 | External Medical Summary ---
Author Name Unknown Address Unknown Organization [facility] [address] [place] [address] Laboratory Report Ordering Provider Test Date Status MARCO RILEY 02/23/2023 11:40:10 Final Deficient: <20 ng/mL
Ins ufficient: 20-29 ng/mL
Recommended/Optimum:30-50 ng/mL

Vitamin D intoxication is rare. If suspicious of Vitamin D toxicity, evaluation of serum Calcium and PTH is recommended. Observation Date Value Abnormality Reference (Units ) Status 25-OH Vitamin D total 02/23/2023 11:40:10 47 >19 (ng/mL) Final Performing Location [facility] - [address] [place] [id number]
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
--- OUTSIDE RECORDS SUMMARY | 2023-06-05 09:43 | External Medical Summary | Summary of Care ---
Author Name Unknown Organization [facility] Address [address] [place] [address] Phone [phone] Care Team Providers Care Financial Internship Name Role Phone Jose Alejandro Qureshi MD Primary Care Provide r Reason for Visit * Reason Onset Date Comments Advice 01/31/2023 Encounter Details Date Type Department Care Team Description 01/31/2023 Telephone Family Medicine [address] [phone] Jose Alejandro Qureshi MD [address] [place] [address] [place] [address] Advice Allergies Active Allergy Reactions Severity Noted [...] Take by mouth. 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 D, mild (HCC) Inhale 1 Puff by [...] as of this encounter Miscellaneous Notes * Addendum Note - Jose Alejandro Qureshi MD - 01/31/2023 6:23 PM EDTAddended by: JOSE ALEJANDRO QURESHI on: 01/31/2023 06:23 PM Modules accepted: Orders * Telephone Encounter - Jose Alejandro Qureshi MD - 01/31/2023 6:22 PM EDT Will try methocarbamol - discuss further during clinic visit * Telephone Encounter - Demian Perdomo RP - 01/31/2023 4:04 PM EDT Pt calling [...] Services ([facility]PS) (formerly Telepharmacy) 01/31/23 4:16 PM [phone] * Telephone Encounter - SANTOS Ca - 01/31/2023 4:01 PM EDT Patient called in with side effects from inhalers. Warm transferred to demian for consultation. Thank you, Elis Villalpando, [facility] Nursery Laborer II Centralized Clinical Pharmacy Services([facility]PS)(Formerly Telepharmacy) 01/31/2023,4:02 PM documented in this encounter Plan of Treatment Upcoming Encounters Date Type Specialty Care Team Description 02/09/2023 Office Visit Family Medicine Chandra Neal MD [address] [place] [address] [place] [address] 03/23/2023 Office Visit Family Medicine Jose Alejandro Qureshi MD [address] [place] [address] [place] [address] 03/23/2023 Laboratory Laboratory [place], Lab [address] [place] [address] 08/08/2023 Nurse Only Rheumatology [place], Nurse [address] [place] [phone] 2024 Office Visit Rheumatology Fabian Jensen MD [address] [place] [address] Health Maintenance Due Date Last Done Comments DISCUSS TOBACCO CESSATION (REFER TO SMARTSET #9724) 1950 Alpha-1 Antitrypsin 1969 Hepatitis C Screening 1969 DTaP,Tdap,and Td Vaccines (1 - Tdap) 1970 Cologuard 02/11/1996 Colonoscopy 02/11/1996 Colorectal Cancer Screening 02/11/1996 Fecal Occult Blood Test 02/11/1996 Sigmoidoscopy 02/11/1996 LUNG CANCER SCREENING - USE SMARTSET 32164 2001 Zoster Vaccines (1 of 2) 2001 Pneumococcal Vaccine: 65+ Years (2 - PPSV23 or PCV20) 12/20/2017 10/25/2017 Depression Screening, Annual for Pts 12 and Over 03/28/2021 03/28/2020 COVID-19 Vaccine (4 - Moderna series) 08/29/2021 07/04/2021, 10/24/2020, 09/26/2020 Influenza Vaccine (FLU shot) (#1) 2023 04/26/2022, 07/04/2021, 03/28/2020, Additional history exists HbA1c 04/26/2023 04/26/2022, 03/18, 11/27/2019 Mammogram 06/08/2023 06/08/2022, 1109/2020, 05/14/2020, Additional history exists TSH 09/18/2023 09/17/2022, 07/18, 04/26/2022, Additional history exists O2 ASSESSMENT COMPLETED IN PAST YEAR FOR COPD 10/15/2023 10/14/2022 DXA Scan 02/18/2024 02/17/2022, 06/17, 04/14/2017, Additional history exists Lipid Panel 11/26/2024 11/27/2019, 11/23/2002 VITAMIN D LEVEL ONCE IN A LIFETIME-USE SMARTSET# [id number] Completed 04/26/2022, 07/16/2021, 01/06/2021, Additional history exists [...] unspecified documented in this encounter Care Teams Financial Internship Relationship Specialty Start Date End Date Jose Alejandro Qureshi MD [address] [place] [address] [place] [phone] PCP - General Family Medicine 08/05/22 documented as of this encounter
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
--- OUTSIDE RECORDS SUMMARY | 2023-06-05 09:43 | External Medical Summary | Summary of Care ---
Author Name Unknown Organization [facility] Address [address] [place] [address] Phone [phone] Care Team Providers Care Fund Controller Name Role Phone Jose Alejandro Qureshi MD Primary Care Provide r Reason for Visit * Reason Comments eRx-Medication Refill Encounter Details Date Type Department Care Team Description 01/26/2023 Refill Family Medicine [address] [phone] Jose Alejandro Qureshi MD [address] [place] [address] [place] [address] Allergies Active Allergy Reactions Severity Noted Date [...] TBEC Take by mouth. 0 Active MegaRed [place]-3 Krill Oil 500 MG Oral Capsule Take by mouth. 0 Active Calcium Carbonate-Vitamin D3 600-400 MG-UNIT Oral [...] MUSCLE SPASM 120 Tablet 0 01/28/2023 Active Omeprazole 20 MG Oral Capsule Delayed Release (PriLOSEC) TAKE 1 CAPSULE BY MOUTH TWICE A DAY 180 Capsule 3 03/04/2022 3 Discontinued tiZANidine HCl 2 MG Oral Tablet (Zanaflex) TAKE 1 TABLET BY MOUTH EVERY 6 HOURS NEEDED FOR MUSCLE SPASM 120 Tablet 0 12/27/2022 3 Discontinued Hospital, Clinic, or Other Facility Administered [...] Encounter - Jose Alejandro Qureshi MD - 01/28/2023 11:55 AM EDT Signed Prescriptions: Disp Refills tiZANidine HCl 2 MG Oral Tablet (Zanaflex) 120 Ta*0 Sig: TAKE 1 TABLET BY MOUTH EVERY 6 HOURS NEEDED FOR MUSCLE SPASM Authorizing Provider: JOSE ALEJANDRO QURESHI * Telephone Encounter - Yvan Diaz [facility] - 01/28/2023 11:32 AM EDT Pending Prescriptions: Disp Refills tiZANidine HCl 2 MG Oral Tablet [Pharmacy *120 Ta*0 Sig: TAKE 1 TABLET BY MOUTH EVERY 6 HOURS NEEDED FOR MUSCLE SPASM * Telephone Encounter - Yvan Diaz [facility] - 01/28/2023 11:32 AM EDT Pending Prescriptions: Disp Refills tiZANidine HCl 2 MG Oral Tablet [Pharmacy *120 Ta*0 Sig: TAKE 1 TABLET BY MOUTH EVERY 6 HOURS NEEDED FOR MUSCLE SPASM 10/14/2022 (in office), Visit date not found (telemedicine) 03/23/2023 If no future appointments scheduled, and last appointment is greater than a year ago, please schedule patient for a follow-up appointment Last date the medication was ordered: 12/27/22 Pharmacy: [id number] Is this request for a controlled substance?No Urine Drug Screen:No results found for this or any previous visit. Patient Phone Numbers Labs: Lab Results Component Value Date/Time CREAT 0.7 08/05/2022 03:55 PM CREAT 0.7 03/28/2020 10:27 AM POTASSIUM 4.6 08/05/2022 03:55 PM POTASSIUM 4.5 03/28/2020 10:27 AM TSH 0.38 09/17/2022 09:11 AM TSH 2.77 03/28/2020 10:27 AM LDLCALC 114 (A) 11/27/2019 12:00 AM LDLCALC 173 (HH) 11/23/2002 12:12 PM ALT 20 05/12/2001 12:11 PM HGBA1C 5.9 (H) 04/26/2022 11:30 AM HGBA1C 5.8 (A) 11/27/2019 12:00 AM documented in this encounter Plan of Treatment Upcoming Encounters Date Type Specialty Care Team Description 03/23/2023 Office Visit Family Medicine Jose Alejandro Qureshi MD [address] [place] [address] [place] [address] 03/23/2023 Laboratory Laboratory [place], Lab [address] [place] [address] 08/08/2023 Nurse Only Rheumatology [place], Nurse [address] [place] [phone] 2024 Office Visit Rheumatology Fabian Jensen MD [address] [address] Health Maintenance Due Date Last Done Comments DISCUSS TOBACCO CESSATION (REFER TO SMARTSET #4044) 1950 Alpha-1 Antitrypsin 1969 Hepatitis C Screening 1969 DTaP,Tdap,and Td Vaccines (1 - Tdap) 1970 Cologuard 02/11/1996 Colonoscopy 02/11/1996 Colorectal Cancer Screening 02/11/1996 Fecal Occult Blood Test 02/11/1996 Sigmoidoscopy 02/11/1996 LUNG CANCER SCREENING - USE SMARTSET 42115 2001 Zoster Vaccines (1 of 2) 2001 [...] D LEVEL ONCE IN A LIFETIME-USE SMARTSET# [id number] Completed 04/26/2022, 07/16/2021, 01/06/2021, Additional history exists [...] filedocumented as of this encounter Care Teams Fund Controller Relationship Specialty Start Date End Date Jose Alejandro Qureshi MD [address] [place] [address] [place] [phone] PCP - General Family Medicine 08/05/22 documented as of this encounter
--- OUTSIDE RECORDS SUMMARY | 2023-06-05 09:43 | External Medical Summary | Summary of Care ---
Author Name Unknown Organization [facility] Address [address] [place] [address] Phone [phone] Care Team Providers Care Rectifying Attendant Name Role Phone Jose Alejandro Qureshi MD Primary Care Provide r Reason for Visit * Reason Comments eRx-Medication Refill Encounter Details Date Type Department Care Team Description 12/25/2022 Refill Family Medicine [address] [place] [phone] Jose Alejandro Qureshi MD [address] [place] [address] [place] [address] Allergies Active Allergy Reactions Severity Noted Date [...] daily. 90 Tab 3 03/28/2020 Active MegaRed [place]-3 Krill Oil 500 MG Oral Capsule Take [...] the morning. 30 Tablet 5 12/08/2022 Active Gabapentin 100 MG Oral Capsule (Neurontin)Indicati ons:Pain in both lower extremities TAKE 1 CAPSULE BY MOUTH EVERY NIGHT AT BEDTIME. 30 Capsule 1 12/16/2022 Active tiZANidine HCl 2 MG Oral Tablet (Zanaflex) TAKE 1 TABLET BY MOUTH EVERY 6 HOURS NEEDED FOR MUSCLE SPASM 120 Tablet 0 12/27/2022 Active tiZANidine HCl 2 MG Oral Tablet (Zanaflex) TAKE 1 TABLET BY MOUTH EVERY 6 HOURS NEEDED FOR MUSCLE SPASM 120 Tablet 0 12/09/2022 3 Discontinued Hospital, Clinic, or Other Facility [...] Notes * Telephone Encounter - Jose Alejandro Quershi MD - 12/27/2022 5:55 PM EDT Signed Prescriptions: Disp Refills tiZANidine HCl 2 MG Oral Tablet (Zanaflex) 120 Ta*0 Sig: TAKE 1 TABLET BY MOUTH EVERY 6 HOURS NEEDED FOR MUSCLE SPASM Authorizing Provider: JOSE ALEJANDRO QURESHI * Telephone Encounter - Jeimy Baldwin LPN - 12/27/2022 5:52 PM EDTPending Prescriptions: Disp Refills tiZANidine HCl 2 MG Oral Tablet [Pharmacy *120 Ta*0 Sig: TAKE 1 TABLET BY MOUTH EVERY 6 HOURS NEEDED FOR MUSCLE SPASM * Telephone Encounter - Jeimy Baldwin LPN - 12/27/2022 5:51 PM EDT Did you pend patient's preferred pharmacy and medication before forwarding?yes Pharmacy: [id number] [id number] [facility] Pending Prescriptions: Disp Refills tiZANidine HCl 2 MG Oral Tablet (Zanaflex*120 Ta*0 Sig: TAKE 1 TABLET BY MOUTH EVERY 6 HOURS NEEDED FOR MUSCLE SPASM Last Visit: 10/14/2022 (in office), Visit date not found (telemedicine) Next Visit: 03/23/2023 If no future appointments scheduled, and last appointment is greater than a year ago, please schedule patient for a follow-up appointment Last date the medication was ordered: 12/09/22 Is this request for a controlled substance?No [...] AM HGBA1C 5.8 (A) 11/27/2019 12:00 AM * Telephone Encounter - Roberto Carlos Cheng - 12/27/2022 10:25 AM EDTPending Prescriptions: Disp Refills tiZANidine HCl 2 MG Oral Tablet [Pharmacy *120 Ta*0 Sig: TAKE 1 TABLET BY MOUTH EVERY 6 HOURS NEEDED FOR MUSCLE SPASM documented in this encounter Plan of Treatment Upcoming Encounters Date Type Specialty Care Team Description 01/28/2023 Office Visit Rheumatology Fabian Jensen MD [address] [place] [address] 03/23/2023 Office Visit Family Medicine Jose Alejandro Qureshi MD [address] [place] [address] [place] [address] 03/23/2023 Laboratory Laboratory [place], [address] [place] [address] Health Maintenance Due Date Last Done Comments DISCUSS TOBACCO CESSATION (REFER TO SMARTSET #7065) 1950 Alpha-1 Antitrypsin 1969 Hepatitis C Screening 1969 DTaP,Tdap,and Td Vaccines (1 - Tdap) 1970 Cologuard 02/11/1996 Colonoscopy 02/11/1996 Colorectal Cancer Screening 02/11/1996 Fecal Occult Blood Test 02/11/1996 Sigmoidoscopy 02/11/1996 LUNG CANCER SCREENING - USE SMARTSET 52897 2001 Zoster Vaccines (1 of 2) 2001 [...] D LEVEL ONCE IN A LIFETIME-USE SMARTSET# [id number] Completed 04/26/2022, 07/16/2021, 01/06/2021, Additional history exists [...] filedocumented as of this encounter Care Teams Rectifying Attendant Relationship Specialty Start Date End Date Jose Alejandro Qureshi MD [address] [place] [address] [place] [address] PCP - General Family Medicine 08/05/22 documented as of this encounter
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
--- OUTSIDE RECORDS SUMMARY | 2023-06-05 09:43 | External Medical Summary | Summary of Care ---
Author Name Unknown Organization [facility] Address [address] [place] [address] Phone [phone] Care Team Providers Care Polysom Tech Name Role Phone Jose Alejandro Qureshi MD Primary Care Provide r Reason for Visit * Reason Comments eRx-Medication Refill Encounter Details Date Type Department Care Team Description 01/26/2023 [facility]ill [facility] [place] [address] Forrest Daigle MD [address] [facility] [place] [address] Allergies Active Allergy Reactions Severity Noted Date [...] TBEC Take by mouth. 0 Active MegaRed [place]-3 Krill Oil 500 MG Oral Capsule Take [...] SPASM 120 Tablet 0 01/28/2023 Active Calcium Carb-Cholecalcifero l 600-10 MG-MCG Oral Tablet TAKE 3 TABLETS BY MOUTH EVERY DAY 270 Tablet 1 01/28/2023 Active Omeprazole 20 MG Oral Capsule Delayed Release (PriLOSEC) TAKE 1 CAPSULE BY MOUTH TWICE A DAY 180 Capsule 3 03/04/2022 3 Discontinued Calcium Carbonate-Vitamin D3 600-400 MG-UNIT Oral Tablet TAKE 3 TABLETS BY MOUTH EVERY DAY 270 Tablet 3 03/29/2022 3 Discontinued Hospital, Clinic, or Other Facility [...] - Jose Alejandro Qureshi MD - 01/28/2023 12:19 PM EDT Signed Prescriptions: Disp Refills Omeprazole 20 MG Oral Capsule Delayed Rele*180 Ca*1 Sig: TAKE 1 CAPSULE BY MOUTH TWICE A DAY Authorizing Provider: JOSE ALEJANDRO QURESHI Ordering User: YVAN DIAZ Calcium Carb-Cholecalciferol 600-10 MG-MCG*270 Ta*1 Sig: TAKE 3 TABLETS BY MOUTH EVERY DAY Authorizing Provider: JOSE ALEJANDRO QURESHI * Telephone Encounter - Yvan Diaz [facility] - 01/28/2023 11:59 AM EDT Pending Prescriptions: Disp Refills Calcium Carb-Cholecalciferol 600-10 MG-MCG*270 Ta*1 Sig: TAKE 3 TABLETS BY MOUTH EVERY DAY Signed Prescriptions: Disp Refills Omeprazole 20 MG Oral Capsule Delayed Rele*180 Ca*1 Sig: TAKE 1 CAPSULE BY MOUTH TWICE A DAY Authorizing Provider: JOSE ALEJANDRO QURESHI Ordering User: YVAN DIAZ --- * Telephone Encounter - Yvan Diaz [facility] - 01/28/2023 11:59 AM EDT Pending Prescriptions: Disp Refills Calcium Carb-Cholecalciferol 600-10 MG-MCG*270 Ta*1 Sig: TAKE 3 TABLETS BY MOUTH EVERY DAY Signed Prescriptions: Disp Refills Omeprazole 20 MG Oral Capsule Delayed Rele*180 Ca*1 Sig: TAKE 1 CAPSULE BY MOUTH TWICE A DAY Authorizing Provider: JOSE ALEJANDRO QURESHI Ordering User: YVAN DIAZ 04/26/2022 (in office), 07/30/2021 (telemedicine) Visit date not found If no future appointments scheduled, and last appointment is greater than a year ago, please schedule patient for a follow-up appointment Last date the medication was ordered: 03/29/22 Pharmacy: [id number] Is this request for a controlled [...] Family Medicine Jose Alejandro Qureshi MD [address] [place] [address] [place] [address] 03/23/2023 Laboratory Laboratory [facility], Lab [address] [place] [address] 08/08/2023 Nurse Only Rheumatology [facility] Nurse [address] [place] [phone] 2024 Office Visit Rheumatology Fabian Jensen MD [address] [facility] [place] [address] Health Maintenance Due Date Last Done Comments DISCUSS TOBACCO CESSATION (REFER TO SMARTSET #9113) 1950 Alpha-1 Antitrypsin 1969 Hepatitis C Screening 1969 DTaP,Tdap,and Td Vaccines (1 - Tdap) 1970 Cologuard 02/11/1996 Colonoscopy 02/11/1996 Colorectal Cancer Screening 02/11/1996 Fecal Occult Blood Test 02/11/1996 Sigmoidoscopy 02/11/1996 LUNG CANCER SCREENING - USE SMARTSET 59435 2001 Zoster Vaccines (1 of 2) 2001 [...] D LEVEL ONCE IN A LIFETIME-USE SMARTSET# [id number] Completed 04/26/2022, 07/16/2021, 01/06/2021, Additional history exists [...] filedocumented as of this encounter Care Teams Polysom Tech Relationship Specialty Start Date End Date Jose Alejandro Qureshi MD [address] [place] [address] [place] [address] PCP - General Family Medicine 08/05/22 documented as of this encounter
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
[2023-06-05] MEDS ORDERED: ACETAMINOPHEN 500 MG TAB PO PRN (13:07)
--- NOTE | 2023-06-05 16:45 | Communication Note ---
Date of Service: June 05, 2023 Pt seen in the AM while still waiting for a bed in the ED. Stated that she had started to feel better. requesting tylenol for headache. Notes she knows she should quit smoking, patch does not work for her. Denied acute concerns. Will continue to monitor.
[2023-06-05] MEDS ORDERED: BENZONATATE 100 MG CAPSULE PO PRN (21:35)
[2023-06-05] MEDS: DOXYCYCLINE HYCLATE 100 MG CAP PO SCH (21:44)
[2023-06-06] MEDS: LEVOTHYROXINE SODIUM 100 MCG TABLET PO SCH (05:47)
[2023-06-06] MEDS: IPRATROPIUM BROMIDE NEB SOLN 0.02% 2.5 ML VIAL INH SCH (07:38)
[2023-06-06] MEDS: LEVALBUTEROL 1.25 MG/3 ML NEB NEB SCH (07:38)
[2023-06-06] MEDS ORDERED: LEVALBUTEROL 1.25 MG/3 ML NEB NEB PRN (08:08)
[2023-06-06] MEDS ORDERED: IPRATROPIUM BROMIDE NEB SOLN 0.02% 2.5 ML VIAL INH PRN (08:08)
[2023-06-06] MEDS: DOXYCYCLINE HYCLATE 100 MG CAP PO SCH ×2 (09:07→21:40)
[2023-06-06] MEDS: MONTELUKAST SODIUM 10 MG TABLET PO SCH (09:07)
[2023-06-06] MEDS: PANTOprazole 40 MG TAB PO SCH ×2 (09:07→21:40)
[2023-06-06] MEDS: predniSONE 20 MG TAB PO SCH (09:07)
[2023-06-06] MEDS: UMECLIDINIUM BROMIDE 62.5MCG/BLISTER 7 PUFFS/INHALER INH SCH (09:08)
[2023-06-06] MEDS: FLUTICASONE/VILANTEROL 100/25MCG 14 PUFFS/INHALER INH SCH (09:08)
--- NOTE | 2023-06-06 18:37 | Hospitalist Progress Note ---
Date of Service June 06, 2023 Assessment & Plan (1) Acute hypoxemic respiratory failure: Plan: Secondary to COPD exacerbation secondary to complicated bronchitis following enterorhinovirus infection on short course of prednisone and nebs and po doxycycline still requiring oxygen continue to monitor. Hypothyroidism on synthroid Dvt px Lovenox Admission and Anticipated Discharge Date Admission Date: June 05, 2023 Subjective says sob improved but still requiring oxygen coughing yellow sputum no chest pain no fevers normal bowel and bladder movements Review of Systems Review of Systems: All systems reviewed & are unremarkable except as noted in HPI & below Physical Exam Physical Exam: General-Not in distress Head- atraumatic Eyes- PERRL. ENT- oropharynx clear Neck- supple, no JVD. Lungs- diminished b/l breath sounds, no wheezing or crackles. Heart- regular rhythm; no murmur, no gallop. Abdomen- normal bowel sounds, soft, nontender, no distension. Extremities- no pretibial edema, no erythema seen. Neuro- alert, oriented x 3; no facial palsy; no dysarthria; moves extremities. Skin- warm & dry Results & Data Results & Data Vital Signs (Past 12 Hours) Vital Signs Temp Pulse Pulse Resp BP Pulse Ox O2 Del Method 06/06/23 15:43 36.5 C 80 16 102/57 L 92 Nasal Cannula 06/06/23 15:00 85 06/06/23 11:33 36.4 C L 86 16 115/61 91 Nasal Cannula 06/06/23 08:00 Nasal Cannula 06/06/23 08:00 76 06/06/23 07:36 84 15 90 Room Air 06/06/23 07:35 36.5 C 83 16 108/64 93 Nasal Cannula O2 Flow Rate FiO2 06/06/23 15:43 4 06/06/23 15:00 06/06/23 11:33 4 06/06/23 08:00 3 06/06/23 08:00 06/06/23 07:36 21 06/06/23 07:35 4 Diagnostic Findings Laboratory Results WBC 14.55 K/ul (4.8-10.8) H 06/05/23 03:54 RBC 4.25 M/uL (4.20-5.40) 06/05/23 03:54 Hgb 12.8 g/dl (12.0-16.0) 06/05/23 03:54 Hct 40.8 % (37.0-47.0) 06/05/23 03:54 MCV 96.0 fL (80.0-100.0) 06/05/23 03:54 MCH 30.1 pg (25.0-34.0) 06/05/23 03:54 MCHC 31.4 g/dL (32.0-36.0) L 06/05/23 03:54 RDW Std Deviation 45.6 fL (36.4-46.3) 06/05/23 03:54 RDW Coeff of Ada 12.9 % (11.5-14.5) 06/05/23 03:54 Plt Count 501 K/uL (130-400) H 06/05/23 03:54 MPV 9.4 fL (9.4-12.4) 06/05/23 03:54 Immature Gran % (Auto) 0.5 % 06/05/23 03:54 Neut % (Auto) 82.0 % 06/05/23 03:54 Lymph % (Auto) 16.2 % 06/05/23 03:54 [place] % (Auto) 0.9 % 06/05/23 03:54 Eos % (Auto) 0.1 % 06/05/23 03:54 Baso % (Auto) 0.3 % 06/05/23 03:54 Neut # (Auto) 11.93 K/uL (1.40-6.50) H 06/05/23 03:54 Lymph # (Auto) 2.36 K/uL (1.20-3.40) 06/05/23 03:54 [place] # (Auto) 0.13 K/uL (0.11-0.59) 06/05/23 03:54 Eos # (Auto) 0.01 K/uL (0.00-0.50) 06/05/23 03:54 Baso # (Auto) 0.05 K/uL (0.00-0.20) 06/05/23 03:54 Immature Gran # (Auto) 0.07 K/uL (0.01-0.20) 06/05/23 03:54 APTT 26.8 Seconds (21.0-31.0) 06/04/23 21:57 PTT Ratio 1.0 06/04/23 21:57 Sodium 139 mmol/L (136-145) 06/05/23 03:54 Potassium 4.1 mmol/L (3.5-5.1) 06/05/23 03:54 Chloride 103 mmol/L (98-107) 06/05/23 03:54 Carbon Dioxide 29 mmol/L (21-32) 06/05/23 03:54 Anion Gap 7 (3-11) 06/05/23 03:54 BUN 13 mg/dl (6-23) 06/05/23 03:54 Creatinine 0.71 mg/dl (0.6-1.2) 06/05/23 03:54 Est Cr Clr Drug Dosing 56.6 ml/min 06/05/23 03:54 Est GFR ( Amer) 98.6 ml/min 06/05/23 03:54 Est GFR (Non-Af Amer) 85.1 ml/min 06/05/23 03:54 BUN/Creatinine Ratio 18.3 (10-20) 06/05/23 03:54 Glucose 231 mg/dl (70-99(Fasting)) H 06/05/23 03:54 Calcium 9.8 mg/dl (8.6-10.3) 06/05/23 03:54 Magnesium 2.1 mg/dl (1.7-2.4) 06/05/23 03:54 Total Bilirubin 0.2 mg/dl (0.2-1.0) 06/04/23 21:57 AST 29 U/L (13-39) 06/04/23 21:57 ALT 23 U/L (7-52) 06/04/23 21:57 Alkaline Phosphatase 79 U/L (34-104) 06/04/23 21:57 Troponin I High Sens 4.2 pg/ml (0-14) 06/04/23 21:57 B-Natriuretic Peptide 98 pg/ml (0-100) 06/04/23 22:47 Total Protein 7.6 gm/dl (6.0-8.3) 06/04/23 21:57 Albumin 4.1 gm/dl (3.4-5.0) 06/04/23 21:57 Globulin 3.5 gm/dl (2.5-4.0) 06/04/23 21:57 Albumin/Globulin Ratio 1.2 (0.9-2) 06/04/23 21:57 Lipase 17 U/L (11-82) 06/04/23 21:57 Adenovirus (PCR) Not Detected (NotDetected) 06/04/23 21:50 B. pertussis DNA (PCR) Not Detected (NotDetected) 06/04/23 21:50 B.parapertussis DNA PCR Not Detected (NotDetected) 06/04/23 21:50 C. pneumoniae DNA (PCR) Not Detected (NotDetected) 06/04/23 21:50 Coronavirus OC43 (PCR) Not Detected (NotDetected) 06/04/23 21:50 Coronavirus HKU1 (PCR) Not Detected (NotDetected) 06/04/23 21:50 Coronavirus 229E (PCR) Not Detected (NotDetected) 06/04/23 21:50 SARS-CoV-2 (PCR) Not Detected (NotDetected) 06/04/23 21:50 Coronavirus NL63 (PCR) Not Detected (NotDetected) 06/04/23 21:50 Human Metapneumovir PCR Not Detected (NotDetected) 06/04/23 21:50 Influenza Type A (PCR) Not Detected (NotDetected) 06/04/23 21:50 Influenza Type B (PCR) Not Detected (NotDetected) 06/04/23 21:50 M. pneumoniae (PCR) Not Detected (NotDetected) 06/04/23 21:50 Parainfluenza 1 (PCR) Not Detected (NotDetected) 06/04/23 21:50 Parainfluenza 2 (PCR) Not Detected (NotDetected) 06/04/23 21:50 Parainfluenza 3 (PCR) Not Detected (NotDetected) 06/04/23 21:50 Parainfluenza 4 (PCR) Not Detected (NotDetected) 06/04/23 21:50 RSV (PCR) Not Detected (NotDetected) 06/04/23 21:50 Entero/Rhino (PCR) DETECTED (NotDetected) A* 06/04/23 21:50 Impressions Chest X-Ray 06/04/23 21:50 XR chest 1V portable HISTORY: illness COMPARISON: Chest CT 07/10/2021. FINDINGS: Emphysema. No pneumothorax. No pleural effusions. No focal lung consolidations. No evidence for pulmonary edema. The cardiac silhouette is top normal in size. There are postoperative changes within the right humerus. IMPRESSION: Emphysema. Otherwise, no acute process within the chest. ACT 112: Negative or not required by law. Electronically signed by: Kolby Moon M.D. 06/05/2023 7:03 AM Chest CTA 06/04/23 22:08 Exam(s): CTA CHEST IV Amt: OPTIRAY [id number] EXAM: CT Angiography Chest With Intravenous Contrast CLINICAL HISTORY: Reason for exam: PE, COPD, recent covid. TECHNIQUE: Axial computed tomographic angiography images of the chest with intravenous contrast. Automated exposure control was utilized for the study. A dose lowering technique was utilized adhering to the principles of ALARA. MIP reconstructed images were created and reviewed. COMPARISON: 07/10/2021 FINDINGS: Pulmonary arteries: Unremarkable. No CT evidence of pulmonary embolism. Aorta: No acute findings. No thoracic aortic aneurysm. Lungs: Bronchial wall thickening within bilateral lung bases with patchy areas of consolidation. Smaller area of centrilobular opacities within the right middle lobe as well. Findings are most concerning for an infectious etiology. Severe centrilobular emphysema. Pleural space: Unremarkable. No significant effusion. No pneumothorax. Heart: Unremarkable. No cardiomegaly. No significant pericardial effusion. No evidence of RV dysfunction. Bones/joints: No acute fracture. No dislocation. Soft tissues: Unremarkable. Lymph nodes: Unremarkable. No enlarged lymph nodes. IMPRESSION: 1. No CT evidence of pulmonary embolism. 2. Bronchial wall thickening within bilateral lung bases with patchy areas of consolidation. Smaller area of centrilobular opacities within the right middle lobe as well. Findings are most concerning for an infectious etiology. 3. Severe centrilobular emphysema. Electronically signed by: Beny Blank M.D. 06/05/23 01:42 AM
[2023-06-07 05:11] LABS: Hematocrit (blood only) 34.8 % (37.0-47.0); Mean Corpuscular Hemoglobin 30.2 pg (25.0-34.0); Mean Corpuscular Hgb Conc 31.6 g/dL (32.0-36.0); Mean Corpuscular Volume 95.6 fL (80.0-100.0); Mean Platelet Volume 9.3 fL (9.4-12.4); Platelet Count 422 K/uL (130-400); RDW Standard Deviation 45.4 fL (36.4-46.3); Red Blood Count 3.64 M/uL (4.20-5.40)
[2023-06-07 05:29] LABS: Magnesium 1.6 mg/dl (1.7-2.4); Potassium 3.5 mmol/L (3.5-5.1)
[2023-06-07 05:35] LABS: Creatinine Clr Calc Pharmacy 65.9 ml/min; Est GFR (Non-African American) 90.6 ml/min
[2023-06-07 06:06] LABS: Basophils # (auto) 0.05 K/uL (0.00-0.20); Basophils % (auto) 0.3 %; Eosinophils # (auto) 0.05 K/uL (0.00-0.50); Eosinophils % (auto) 0.3 %; Immature Granulocytes # (auto) 0.21 K/uL (0.01-0.20); Immature Granulocytes % (auto) 1.1 %; Lymphocytes # (auto) 4.49 K/uL (1.20-3.40); Lymphocytes % (auto) 23.8 %; Monocytes # (auto) 1.91 K/uL (0.11-0.59); Monocytes % (auto) 10.1 %; Neutrophils # (auto) 12.19 K/uL (1.40-6.50); Neutrophils % (auto) 64.4 %
[2023-06-07] MEDS: LEVOTHYROXINE SODIUM 100 MCG TABLET PO SCH (06:55)
[2023-06-07] MEDS: FLUTICASONE/VILANTEROL 100/25MCG 14 PUFFS/INHALER INH SCH (08:57)
[2023-06-07] MEDS: PANTOprazole 40 MG TAB PO SCH ×2 (08:57→20:12)
[2023-06-07] MEDS: UMECLIDINIUM BROMIDE 62.5MCG/BLISTER 7 PUFFS/INHALER INH SCH (08:57)
[2023-06-07] MEDS: DOXYCYCLINE HYCLATE 100 MG CAP PO SCH ×2 (08:57→20:12)
[2023-06-07] MEDS: ENOXAPARIN INJ 40 MG/0.4 ML SYR SQ SCH (08:58)
[2023-06-07] MEDS: MONTELUKAST SODIUM 10 MG TABLET PO SCH (08:58)
[2023-06-07] MEDS: predniSONE 20 MG TAB PO SCH (08:58)
--- NOTE | 2023-06-07 12:51 | Hospitalist Progress Note ---
Date of Service June 07, 2023 Assessment & Plan (1) Acute hypoxemic respiratory failure: Plan: (1) Acute hypoxemic respiratory failure: Plan: Secondary to COPD exacerbation secondary to complicated bronchitis following enterorhinovirus infection on short course of prednisone and nebs and po doxycycline still requiring oxygen improving continue same can try to wean off oxygen possible two step prior to discharge Hypothyroidism on synthroid Dvt px Lovenox Possible d/c in am Admission and Anticipated Discharge Date Admission Date: June 05, 2023 Subjective resting comfortably says sob and cough improving ambulating ok in room denies chest pain afebrile Review of Systems Review of Systems: All systems reviewed & are unremarkable except as noted in HPI & below Physical Exam Physical Exam: General- Not in distress Head- atraumatic Eyes- PERRL. ENT- oropharynx clear Neck- supple, no JVD. Lungs- clear to auscultation, no wheezing or crackles. Heart- regular rhythm; no murmur, no gallop. Abdomen- normal bowel sounds, soft, nontender, no distension. Extremities- no pretibial edema, no erythema seen Neuro- alert, oriented x 3; no facial palsy; no dysarthria; moves extremities. Skin- warm & dry Results & Data Results & Data Vital Signs (Past 12 Hours) Vital Signs Temp Pulse Pulse Resp BP BP Pulse Ox 06/07/23 11:39 36.5 C 77 20 107/66 91 06/07/23 08:00 06/07/23 07:58 36.4 C L 68 20 122/73 95 06/07/23 07:08 69 06/07/23 07:00 06/07/23 04:05 36.4 C L 77 16 125/71 93 O2 Del Method O2 Flow Rate 06/07/23 11:39 Nasal Cannula 2 06/07/23 08:00 Nasal Cannula 2 06/07/23 07:58 Nasal Cannula 06/07/23 07:08 06/07/23 07:00 Nasal Cannula 2 06/07/23 04:05 Nasal Cannula 2 Diagnostic Findings Laboratory Results WBC 18.90 K/ul (4.8-10.8) H 06/07/23 04:33 RBC 3.64 M/uL (4.20-5.40) L 06/07/23 04:33 Hgb 11.0 g/dl (12.0-16.0) L 06/07/23 04:33 Hct 34.8 % (37.0-47.0) L 06/07/23 04:33 MCV 95.6 fL (80.0-100.0) 06/07/23 04:33 MCH 30.2 pg (25.0-34.0) 06/07/23 04:33 MCHC 31.6 g/dL (32.0-36.0) L 06/07/23 04:33 RDW Std Deviation 45.4 fL (36.4-46.3) 06/07/23 04:33 RDW Coeff of Ada 13.0 % (11.5-14.5) 06/07/23 04:33 Plt Count 422 K/uL (130-400) H 06/07/23 04:33 MPV 9.3 fL (9.4-12.4) L 06/07/23 04:33 Immature Gran % (Auto) 1.1 % 06/07/23 04:33 Neut % (Auto) 64.4 % 06/07/23 04:33 Lymph % (Auto) 23.8 % 06/07/23 04:33 [place] % (Auto) 10.1 % 06/07/23 04:33 Eos % (Auto) 0.3 % 06/07/23 04:33 Baso % (Auto) 0.3 % 06/07/23 04:33 Neut # (Auto) 12.19 K/uL (1.40-6.50) H 06/07/23 04:33 Lymph # (Auto) 4.49 K/uL (1.20-3.40) H 06/07/23 04:33 [place] # (Auto) 1.91 K/uL (0.11-0.59) H 06/07/23 04:33 Eos # (Auto) 0.05 K/uL (0.00-0.50) 06/07/23 04:33 Baso # (Auto) 0.05 K/uL (0.00-0.20) 06/07/23 04:33 Immature Gran # (Auto) 0.21 K/uL (0.01-0.20) H 06/07/23 04:33 APTT 26.8 Seconds (21.0-31.0) 06/04/23 21:57 PTT Ratio 1.0 06/04/23 21:57 Sodium 141 mmol/L (136-145) 06/07/23 04:33 Potassium 3.5 mmol/L (3.5-5.1) 06/07/23 04:33 Chloride 106 mmol/L (98-107) 06/07/23 04:33 Carbon Dioxide 32 mmol/L (21-32) 06/07/23 04:33 Anion Gap 3 (3-11) 06/07/23 04:33 BUN 25 mg/dl (6-23) H 06/07/23 04:33 Creatinine 0.61 mg/dl (0.6-1.2) 06/07/23 04:33 Est Cr Clr Drug Dosing 65.9 ml/min 06/07/23 04:33 Est GFR ( Amer) 105.0 ml/min 06/07/23 04:33 Est GFR (Non-Af Amer) 90.6 ml/min 06/07/23 04:33 BUN/Creatinine Ratio 41.0 (10-20) H 06/07/23 04:33 Glucose 99 mg/dl (70-99(Fasting)) 06/07/23 04:33 Calcium 9.0 mg/dl (8.6-10.3) 06/07/23 04:33 Magnesium 1.6 mg/dl (1.7-2.4) L 06/07/23 04:33 Total Bilirubin 0.2 mg/dl (0.2-1.0) 06/04/23 21:57 AST 29 U/L (13-39) 06/04/23 21:57 ALT 23 U/L (7-52) 06/04/23 21:57 Alkaline Phosphatase 79 U/L (34-104) 06/04/23 21:57 Troponin I High Sens 4.2 pg/ml (0-14) 06/04/23 21:57 B-Natriuretic Peptide 98 pg/ml (0-100) 06/04/23 22:47 Total Protein 7.6 gm/dl (6.0-8.3) 06/04/23 21:57 Albumin 4.1 gm/dl (3.4-5.0) 06/04/23 21:57 Globulin 3.5 gm/dl (2.5-4.0) 06/04/23 21:57 Albumin/Globulin Ratio 1.2 (0.9-2) 06/04/23 21:57 Lipase 17 U/L (11-82) 06/04/23 21:57 Adenovirus (PCR) Not Detected (NotDetected) 06/04/23 21:50 B. pertussis DNA (PCR) Not Detected (NotDetected) 06/04/23 21:50 B.parapertussis DNA PCR Not Detected (NotDetected) 06/04/23 21:50 C. pneumoniae DNA (PCR) Not Detected (NotDetected) 06/04/23 21:50 Coronavirus OC43 (PCR) Not Detected (NotDetected) 06/04/23 21:50 Coronavirus HKU1 (PCR) Not Detected (NotDetected) 06/04/23 21:50 Coronavirus 229E (PCR) Not Detected (NotDetected) 06/04/23 21:50 SARS-CoV-2 (PCR) Not Detected (NotDetected) 06/04/23 21:50 Coronavirus NL63 (PCR) Not Detected (NotDetected) 06/04/23 21:50 Human Metapneumovir PCR Not Detected (NotDetected) 06/04/23 21:50 Influenza Type A (PCR) Not Detected (NotDetected) 06/04/23 21:50 Influenza Type B (PCR) Not Detected (NotDetected) 06/04/23 21:50 M. pneumoniae (PCR) Not Detected (NotDetected) 06/04/23 21:50 Parainfluenza 1 (PCR) Not Detected (NotDetected) 06/04/23 21:50 Parainfluenza 2 (PCR) Not Detected (NotDetected) 06/04/23 21:50 Parainfluenza 3 (PCR) Not Detected (NotDetected) 06/04/23 21:50 Parainfluenza 4 (PCR) Not Detected (NotDetected) 06/04/23 21:50 RSV (PCR) Not Detected (NotDetected) 06/04/23 21:50 Entero/Rhino (PCR) DETECTED (NotDetected) A* 06/04/23 21:50 Impressions Chest X-Ray 06/04/23 21:50 XR chest 1V portable HISTORY: illness COMPARISON: Chest CT 07/10/2021. FINDINGS: Emphysema. No pneumothorax. No pleural effusions. No focal lung consolidations. No evidence for pulmonary edema. The cardiac silhouette is top normal in size. There are postoperative changes within the right humerus. IMPRESSION: Emphysema. Otherwise, no acute process within the chest. ACT 112: Negative or not required by law. Electronically signed by: Kolby Moon M.D. 06/05/2023 7:03 AM Chest CTA 06/04/23 22:08 Exam(s): CTA CHEST IV Amt: OPTIRAY [id number] EXAM: CT Angiography Chest With Intravenous Contrast CLINICAL HISTORY: Reason for exam: PE, COPD, recent covid. TECHNIQUE: Axial computed tomographic angiography images of the chest with intravenous contrast. Automated exposure control was utilized for the study. A dose lowering technique was utilized adhering to the principles of ALARA. MIP reconstructed images were created and reviewed. COMPARISON: 07/10/2021 FINDINGS: Pulmonary arteries: Unremarkable. No CT evidence of pulmonary embolism. Aorta: No acute findings. No thoracic aortic aneurysm. Lungs: Bronchial wall thickening within bilateral lung bases with patchy areas of consolidation. Smaller area of centrilobular opacities within the right middle lobe as well. Findings are most concerning for an infectious etiology. Severe centrilobular emphysema. Pleural space: Unremarkable. No significant effusion. No pneumothorax. Heart: Unremarkable. No cardiomegaly. No significant pericardial effusion. No evidence of RV dysfunction. Bones/joints: No acute fracture. No dislocation. Soft tissues: Unremarkable. Lymph nodes: Unremarkable. No enlarged lymph nodes. IMPRESSION: 1. No CT evidence of pulmonary embolism. 2. Bronchial wall thickening within bilateral lung bases with patchy areas of consolidation. Smaller area of centrilobular opacities within the right middle lobe as well. Findings are most concerning for an infectious etiology. 3. Severe centrilobular emphysema. Electronically signed by: Beny Blank M.D. 06/05/23 01:42 AM
[2023-06-07 19:54] VITALS: RESP 18
[2023-06-08] MEDS: LEVOTHYROXINE SODIUM 100 MCG TABLET PO SCH (05:20)
--- NOTE | 2023-06-08 05:46 | Electrocardiogram Report ---
Test Reason : Blood Pressure : / mmHG Vent. Rate : 088 BPM Atrial Rate : 088 BPM P-R Int : 110 ms QRS Dur : 066 ms QT Int : 344 ms P-R-T Axes : 063 -28 068 degrees QTc Int : 416 ms Sinus rhythm with short AR Low voltage QRS Cannot rule out Anterior infarct (cited on or before 04-JUN-2023) Abnormal ECG When compared with ECG of 09-JUL-2021 23:04, No significant change was found Confirmed by Tyler Jimenez ([id number] on 06/08/2023 5:46:41 AM Referred By: REFERRED SELF Confirmed By:Tyler Jimenez
[2023-06-08] MEDS: ENOXAPARIN INJ 40 MG/0.4 ML SYR SQ SCH (09:32)
[2023-06-08] MEDS: DOXYCYCLINE HYCLATE 100 MG CAP PO SCH (09:33)
[2023-06-08] MEDS: FLUTICASONE/VILANTEROL 100/25MCG 14 PUFFS/INHALER INH SCH (09:33)
[2023-06-08] MEDS: UMECLIDINIUM BROMIDE 62.5MCG/BLISTER 7 PUFFS/INHALER INH SCH (09:34)
[2023-06-08] MEDS: predniSONE 20 MG TAB PO SCH (09:35)
[2023-06-08] MEDS: MONTELUKAST SODIUM 10 MG TABLET PO SCH (09:36)
[2023-06-08] MEDS: PANTOprazole 40 MG TAB PO SCH (09:36)
[2023-06-08] MEDS: tiZANidine HCL 4 MG TABLET PO PRN (09:36)
[2023-06-08 11:28] VITALS: TEMP 97.9
[2023-06-08] MEDS ORDERED: LACTATED RINGER'S 500 ML IV ONE (12:01)
--- NOTE | 2023-06-08 13:31 | Discharge Summary ---
Discharge Summary Date of Service June 08, 2023 Notes For Next Care Provider Medication Changes From Visit Doxycyline 100mg BID x4 days Admission HPI Per Admitting Provider History obtained from patient and records. Medical history significant for COPD, prediabetes, hypothyroidism, GERD, celiac disease, chronic myofascial pain, osteoporosis, ongoing tobacco abuse. Patient had cough symptoms attributed to COVID-19 illness about 2 months ago. Patient has received COVID-19 vaccination. Recovered with supportive management at home. Patient was good for about a week following COVID-19 illness. Symptoms later followed by junky cough, exertional SOB symptoms. Denies aspiration. Patient compliant with home inhalers but still smokes. Insurance does not cover Advair. Patient did not mention respiratory symptoms to outpatient providers because she feels that "they do not listen to her." Patient is seen at PCP's office 2 weeks ago. Patient verbalized fatigue symptoms. Patient later prescribed short course of prednisone for troublesome cough and SOB which resulted in transient improvement of symptoms. 2 days ago, patient developed nasal congestion productive of yellow-greenish drainage. Possible sick contacts. Worsening junky cough and SOB symptoms. Chest pain and headache from coughing. Denies aspiration. Lowest O2 sat of 80s documented at the ER. Patient given Solu-Medrol and neb treatment. 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 Admission Exam Per Admitting Provider GENERAL: Slightly uncomfortable, underweight, no respiratory distress SKIN: Normal color, warm HEENT: [place] palpebral conjunctivae, no ptosis, dry buccal mucosa, nasal cannula in place NECK : Supple, no tenderness CHEST : Decreased breath sounds, no tenderness HEART : RRR, no obvious murmurs ABDOMEN: no distention, nontender EXTREMITIES : No LE swelling/tenderness, no other conspicuous deformities noted NEUROLOGIC : Coherent, no facial asymmetry, no other gross focality Principal Dx & Hospital Course #1 = Principal Diagnosis (1) Acute hypoxemic respiratory failure: Ms. Archuleta was admitted for acute hypoxemic respiratory failure secondary to COPD exacerbation. #Acute hypoxic respiratory failure #Acute COPD exacerbation #Entero/Rhinovirus infection -Completed x5 days prednisone -Plan to complete 7 days doxycycline -Continue home inhalers -2 step without need for home O2 Resume other home medications as prescribed. Discharge Exam Constitutional WD/WN, vitals as above Respiratory normal respiratory effort, lungs clear to auscultation Cardiovascular RRR, no murmur, no edema Musculoskeletal no cyanosis or clubbing, extremities motor strength 5/5 Updated Medication List Medication Instructions Recorded Confirmed Type omeprazole 20 mg capsule,delayed 20 mg PO BID 07/09/21 06/04/23 History release albuterol sulfate 90 mcg/actuation 2 puff inhalation Q4 PRN wheeze 06/04/23 06/04/23 History aerosol inhaler calcium carbonate 600 mg-vitamin 3 tab PO DAILY 06/04/23 06/04/23 History D3 10 mcg (400 unit) tablet fluticasone 250 mcg-salmeterol 50 1 inh inhalation AMHS 06/04/23 06/04/23 History mcg/dose blistr powdr for inhalation (Wixela Inhub) levothyroxine 100 mcg tablet 100 mcg PO DAILYBB 06/04/23 06/04/23 History montelukast 10 mg tablet 10 mg PO QAM 06/04/23 06/04/23 History tiotropium bromide 18 mcg capsule 1 cap inhalation QAM 06/04/23 06/04/23 History with inhalation device (Spiriva with HandiHaler) tizanidine 4 mg tablet 4 mg PO Q6 PRN Muscle Spasm 06/04/23 06/04/23 History doxycycline hyclate 100 mg capsule 100 mg PO BID 4 days #8 caps 06/08/23 Rx Hospital Stay Data Consultations 06/04/23 23:33 ED Decision to Admit Stat Diagnostic Imagining Performed 06/04/23 22:08 CT angio chest PE protocol Stat Pending Results Patient Have Any Pending Studies at Discharge: No Discharge Instructions Given to Patient (Per Discharging Provider) You were admitted for shortness of breath and ongoing cough/congestion. You tested positive for rhinovirus, a virus that is a cause of the common cold. In addition to symptom management, you were started on antibiotics to help with any superimposed bacteria causing pneumonia. you completed 5 days of steroids by mouth. You will need to complete 4 more days of this medication: Doxycycline 100mg twice a day, until tablets are finished (next dose is this evening, 06/08) Please continue home inhalers as prescribed. Total Time Total Time Spent Total Time Spent (In Minutes): 45
[2023-06-08 13:55] VITALS: BP 121/68; PULSE 70; O2SAT 93
== END 2023-06-08 14:19 | disposition home or self-care (01) | DRG 189 ==
LOC: ED 21:43 → SUPCPDRO 06-05 01:05 → SUATTDRO 06-05 01:05 → EDINP 06-05 01:05 → 2W 06-05 18:02
DX: E03.9 Hypothyroidism, unspecified; J44.0 Chronic obstructive pulmonary disease with (acute) lower respiratory infection; B97.89 Other viral agents as the cause of diseases classified elsewhere; K21.9 Gastro-esophageal reflux disease without esophagitis; E46 Unspecified protein-calorie malnutrition; Z79.890 Hormone replacement therapy; Z86.16 Personal history of COVID-19; Z66 Do not resuscitate; F17.210 Nicotine dependence, cigarettes, uncomplicated; Z88.0 Allergy status to penicillin; Z68.1 Body mass index [BMI] 19.9 or less, adult; J96.01 Acute respiratory failure with hypoxia; J20.9 Acute bronchitis, unspecified; J44.1 Chronic obstructive pulmonary disease with (acute) exacerbation

== ENCOUNTER 2024-01-22 09:06 | Inpatient (IN) ==
--- OUTSIDE RECORDS SUMMARY | 2024-01-22 09:12 | External Medical Summary ---
Author Name Unknown Address Unknown Organization K01:[facility] [address] [place] [address] Laboratory Report Ordering Provider Test Date Status MICHELLE WARE 01/06/2024 15:40:10 Final Observation Date Value Abnormality Reference (Units ) Status Magnesium 01/06/2024 15:40:10 1.9 1.5-2.6 (m g/dL) Final Performing Location [facility] - [address] [place] [address]
--- OUTSIDE RECORDS SUMMARY | 2024-01-22 09:12 | External Medical Summary ---
Author Name Unknown Address Unknown Organization K01:[facility] - [address] [place] [id number] Laboratory Report Ordering Provider Test Date Status MICHELLE WARE 01/06/2024 15:40:10 Final Observation Date Value Abnormality Reference (Units ) Status TSH 01/06/2024 15:40:10 1.05 0.27-4.20 (uIU/mL) Final Performing Location [facility] - [address] [place] [id number]
--- OUTSIDE RECORDS SUMMARY | 2024-01-22 09:12 | External Medical Summary ---
Author Name Unknown Address Unknown Organization K01:[facility] [place] [address] [place] [address] Laboratory Report Ordering Provider Test Date Status MICHELLE WARE 01/06/2024 15:40:10 Final Observation Date Value Abnormality Reference (Units ) Status BUN 01/06/2024 15:40:10 17 6-20 (mg/dL) Final Creatinine 01/06/2024 15:40:10 0.9 0.5-1.0 (mg/dL) Final Glomerular filtration rate/1.73 sq M.predicted [Volume Rate/Area] in Serum, Plasma or Blood by Creatinine-based formula (CKD-EPI) 01/06/2024 15:40:10 73 >=60 (mL/min) Final eGFR is calculated based on the CKD-EPI 2020 equation Sodium 01/06/2024 15:40:10 143 135-146 (m mol/L) Final Potassium 01/06/2024 15:40:10 4.0 3.5-5.1 (m mol/L) Final Cl 01/06/2024 15:40:10 102 98-107 (mm ol/L) Final CO2 01/06/2024 15:40:10 28 22-32 (mmo l/L) Final Anion gap 01/06/2024 15:40:10 13 7-15 (mmol /L) Final Glucose 01/06/2024 15:40:10 88 70-120 (mg /dL) Final Albumin 01/06/2024 15:40:10 4.3 3.8-5.0 (g /dL) Final AST (Aspartate aminotransferase) 01/06/2024 15:40:10 45 Above high normal 10-35 (U/L) Final Alk Phos 01/06/2024 15:40:10 76 35-130 (U/ L) Final Bilirubin, Total 01/06/2024 15:40:10 0.2 <=1 .2 (mg/dL) Final Calcium 01/06/2024 15:40:10 9.8 8.4-10.2 ( mg/dL) Final Protein 01/06/2024 15:40:10 6.6 6.0-8.3 (g /dL) Final ALT (Alanine aminotransferase) 01/06/2024 15:40:10 40 Above high normal 10-35 (U/L) Final Performing Location [facility] [place] - [address] [facility] [address]
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
--- OUTSIDE RECORDS SUMMARY | 2024-01-22 09:12 | External Medical Summary | Summary of Care ---
Author Name Unknown Organization [facility] Address [address] [place] [address] Phone [phone] Care Team Providers Care Strip Cutting Machine Operator Name Role Phone Lindsey Gordon MD Primary Care Prov ider Reason for Referral * Evaluate & Treat - Unlimited Visits (Within 10 days (routine)) - Authorized Specialty Diagnoses / Procedures Referred By Contac t Referred To Contact Gastroenterology Diagnoses Other constipation Celiac disease Nancie Dover CRNP [address] [place] [address] [place] [address] Referral ID Status Reason Start Date Expiration Date Visits Requested Visits Authorized [id number] Authorized Specialty Services Required 01/06/[phone] Question Answer Referral Priority Within 10 days (routine) Where should this appointment be scheduled? [facility] For what condition is the patient being referred? All Gastro Conditions * Evaluate & Treat - Unlimited Visits (Within 10 days (routine)) - Authorized Specialty Diagnoses / Procedures Referred By Contac t Referred To Contact ACADEMIC MANAGER - Urogynecology / Gynecology Urology Diagnoses Acquired female bladder prolapse Nancie Dover CRNP [address] [place] [address] [place] [address] Referral ID Status Reason Start Date Expiration Date Visits Requested Visits Authorized [id number] Authorized Specialty Services Required 01/06/[phone] Question Answer Referral Priority Within 10 days (routine) Where should this appointment be scheduled? [facility] What condition is the patient being referred for? Prolapse (dropped bladder, uterus, etc) Reason for Visit * Reason Comments Acute Encounter Details Date Type Department Care Team (Late st Contact Info) Description 01/06/2024 3:00 PM EDT Office Visit Family Medicine [address] [place] [phone] Nancie Dover CRNP [address] [place] [address] [place] [address] Chronic myofascial pain*; Other constipation; Acquired female bladder prolapse; Leg cramping; Celiac disease Allergies Active Allergy Reactions Criticality [...] Release Take by mouth. Activ e MegaRed [place]-3 Krill Oil 500 MG Oral Capsule Take by mouth. Active Albuterol Sulfate HFA 108 (90 Base) MCG/ACT Inhalation Aerosol SolutionIndications :COPD, mild (HCC) Inhale 2 Puffs by mouth every 4 hours as needed for Wheezing. 18 g 3 3 Active Fluticasone Furoate-Vilanterol 100-25 MCG/ACT Inhalation Aerosol Powder Breath Activated (BREO ellipta)Indications :COPD exacerbation (HCC) Inhale 1 Puff by mouth in the morning. 60 Each 5 3 Active Levothyroxine Sodium 100 MCG Oral Tablet (Levoxyl)Indication s:Acquired hypothyroidism TAKE 1 TABLET BY MOUTH DAILY 30 MINUTES PRIOR TO FIRST MEAL OF THE DAY AND OTHER MEDS 90 Tablet 3 3 Active Additional Information Patient taking differently: 100 mcg Oral [id number], Reported on 10/13/2023 Tiotropium [place] Monohydrate 18 MCG Inhalation Capsule (Spiriva HandiHaler)Indicati ons:COPD, mild (HCC) Inhale 1 Capsule by mouth in the morning. For inhaler only, do not swallow.. 30 Capsule 6 3 Active Omeprazole 20 MG Oral Capsule Delayed Release (PriLOSEC) TAKE 1 CAPSULE BY MOUTH TWICE A DAY 180 Capsule 3 4 Active Fluticasone-[place]met[place] rol 250-50 MCG/ACT Inhalation Aerosol Powder Breath Activated (Wixela Inhub)Indications:a s needed Inhale 1 Puff by mouth in the morning and 1 Puff before bedtime. Active tiZANidine HCl 4 MG Oral Tablet (Zanaflex)Indicatio ns:Leg cramps TAKE 1 TABLET BY MOUTH EVERY 6 HOURS NEEDED FOR MUSCLE SPASMS. 360 Tablet 1 4 Active Calcium Carb-Cholecalcifero l 600-10 MG-MCG Oral Tablet TAKE 4 TABLETS BY MOUTH EVERY DAY 360 Tablet 1 4 Active Azithromycin 250 MG Oral Tablet (Zithromax Z-[place]) Take two tablets by mouth on first day, then 1 tablet daily until gone 6 Tablet 4 01/06/20 24 Discontinued documented as of this encounter (statuses as [...] Sign Reading Time Taken Comments Blood Pressure 98/74 01/06/2024 2:45 PM EDT Pulse 90 01/06/2024 2:45 PM EDT Temperature 36.7 C (98.1 F) 01/06/2024 2:45 PM ED T Respiratory Rate - - Oxygen Saturation 99% 01/06/2024 2:45 PM EDT Inhaled Oxygen Concentration - - Weight 49 kg (108 lb) 01/06/2024 2:45 PM EDT Height - - Body Mass Index 17.44 10/18/2023 11:18 AM EDT documented in this encounter Nursing Notes * Radha Carey LPN - 01/06/2024 2:46 PM EDT Muscle spasms "that nobody will do anything about or send me anywhere to do anything about" "They dont know how bad they are. They just look at me" Everywhere Neck ribs back arms legs feet toes Constantly every night Had bladder tacked & it fell down & coming out of her vagina now Bloated & stomach is hard, can't go to the bathroom- daughter had the same problem & had a colostomy bag & then her intestines exploded & she so she is worried about this. Has hernia in her left groin area that was never there before documented in this encounter Plan of Treatment Upcoming Encounters Date Type Department Care Team (Late st Contact Info) Description 2024 9:40 AM EDT Office Visit Rheumatology [address] [place] [phone] Fabian Jensen MD [facility] [facility] [place] [address] 02/15/2024 10:25 AM EDT Office Visit Urogynecology [address] [place] [address] Yvan Pritchard MD [address] [place] [address] Nurse Evangelina Marina [address] [place] [address] 06/04/2024 1:00 PM EST Office Visit Gastroenterology, [facility] [address] [place] [address] Glenn Solo MD [address] [place] [address] Pending Results Name Type Priority Associated Diagnoses Date /Time XR ABDOMEN 1 VIEW Medical Imaging Routine Other constipation 01/06/2024 3:51 PM EDT CBC WITH WBC DIFFERENTIAL AND ANEMIA REFLEX WORKUP Lab Routine Leg cramping 01/06/2024 3:40 PM EDT TSH Lab Routine Other constipation 01/06/2024 3:40 PM EDT Scheduled Orders Name Type Priority Associated Diagnoses Orde r Schedule CBC WITH WBC DIFFERENTIAL AND ANEMIA REFLEX WORKUP Lab Routine Leg cramping Expected: 01/06/2024 (Approximate), Expires: 01/05/2025 TSH Lab Routine Other constipation Expected: 01/06/2024 (Approximate), Expires: 01/05/2025 Scheduled Referrals Name Type Priority Associated Diagnoses Order Schedule UROGYNECOLOGY CLINIC REFERRAL OP (FEMALE ONLY) Referral Within 10 days (routine) Acquired female bladder prolapse Ordered: 01/06/2024 ADULT GASTROENTEROLOGY REFERRAL OP Referral Within 10 days (routine) Other constipation Celiac disease Ordered: 01/06/2024 Health Maintenance Due Date Last Done Comments DISCUSS TOBACCO CESSATION (REFER TO SMARTSET #5456) 1950 Alpha-1 Antitrypsin 1969 Hepatitis C Screening [...] D LEVEL ONCE IN A LIFETIME-USE SMARTSET# [id number] Completed 02/23/2023, 04/26/2022, 07/16/2021, Additional history exists [...] this encounter Medical Devices Implanted Type Area Reed Or Wind Instrument Repairer Device Identifier Shelf Expiration Date Model / Serial / Lot Lens Li61ao 13.00mm 23.00 - [id number] - [id number] Implanted:Qty: 1 on 10/18/2023 by Jimmie Watkins MD at OR [facility] Right: Eye BAUSCH & LOMB 05/17/2028 [id number] / [id number] / [id number] Lens Li61ao 13.00mm 23.00 - [id number] - [id number] Implanted:Qty: 1 on 11/01/2023 by Jimmie Watkins MD at OR [facility] Left: Eye BAUSCH & LOMB 05/17/2028 [id number] / [id number] / [id number] documented as of this encounter Results * MAGNESIUM (01/06/2024 3:40 PM EDT) Pathologist [facility] Magnesium 1.9 1.5 - 2.6 mg/dL 01/06/2024 10:25 PM EDT LAB[facility]ATORY [facility] Blood Venous blood specimen / Unknown Venipuncture / Unknown 01/06/2024 3:40 PM EDT 01/06/2024 3:40 PM EDT [facility] BLOOD ORDER [facility] [address] [place] [address] * (ABNORMAL) COMPREHENSIVE METABOLIC PANEL (01/06/2024 3:40 PM EDT) [facility] BUN 17 6 - 20 mg/dL 01/06/2024 10:25 PM EDT LAB[facility]ATORY [facility] Creatinine 0.9 0.5 - 1.0 mg/dL 01/06/2024 10:25 PM EDT LABORATORY [facility] Estimated Glomerular Filtration Rate 73 >=60 mL/min 01/06/2024 10:25 PM EDT [facility] Comment:eGFR is calculated b ased on the CKD-EPI 2020 equation Sodium 143 135 - 146 mmol/L 01/06/2024 10:25 PM EDT [facility] Potassium 4.0 3.5 - 5.1 mmol/L 01/06/2024 10:25 PM EDT [facility] Chloride 102 98 - 107 mmol/L 01/06/2024 10:25 PM EDT [facility] CO2 28 22 - 32 mmol/L 01/06/2024 10:25 PM EDT [facility] Anion Gap 13 7 - 15 mmol/L 01/06/2024 10:25 PM EDT [facility] Glucose 88 70 - 120 mg/dL 01/06/2024 10:25 PM EDT [facility] Albumin 4.3 3.8 - 5.0 g/dL 01/06/2024 10:25 PM EDT [facility] AST 45(H) 10 - 35 U/L 01/06/2024 10:25 PM EDT [facility] Alkaline Phosphatase 76 35 - 130 U/L 01/06/2024 10:25 PM EDT [facility] Bilirubin, Total 0.2 <=1.2 mg/dL 01/06/2024 10:25 PM EDT [facility] Calcium 9.8 8.4 - 10.2 mg/dL 01/06/2024 10:25 PM EDT [facility] Protein 6.6 6.0 - 8.3 g/dL 01/06/2024 10:25 PM EDT [facility] ALT 40(H) 10 - 35 U/L 01/06/2024 10:25 PM EDT [facility] Blood Venous blood specimen / Unknown Venipuncture / Unknown 01/06/2024 3:40 PM EDT 01/06/2024 3:40 PM EDT [facility] BLOOD ORDER [facility] [address] [place] [address] documented in this encounter Visit Diagnoses Diagnosis Chronic myofascial pain- Primary Mylagia and myositis, unspecified Other constipation Acquired female bladder prolapse Cystocele, midline Leg cramping Celiac disease documented in this encounter Advance Directives * [...] Power of Attor carlton? No Care Teams Strip Cutting Machine Operator Relationship Specialty Start Date End Date Lindsey Gordon MD [address] [place] [address] [place] [phone] PCP - General Family Medicine 06/17/23 documented as of this encounter
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
--- OUTSIDE RECORDS SUMMARY | 2024-01-22 09:12 | External Medical Summary ---
Author Name Unknown Address Unknown Organization K01:[facility] [place] [address] [place] [address] Laboratory Report Ordering Provider Test Date Status MICHELLE WARE 01/06/2024 15:40:10 Final Observation Date Value Abnormality Reference (Units ) Status WBC, Total 01/06/2024 15:40:10 10.26 4.00-10.8 0 (K/uL) Final RBC 01/06/2024 15:40:10 4.19 3.85-5.15 (M/uL) Final Hemoglobin 01/06/2024 15:40:10 12.7 12.0-15.3 (g/dL) Final Anemia reflex testing trigge rs on a HGB < 12.0 for Females and HGB < 13.0 for Males in accordance with the WHO Anemia Guidelines
Anemia reflex testing triggers on a HGB < 12.0 for Females and HGB < 13.0 for Males in accordance with the WHO Anemia Guidelines HCT 01/06/2024 15:40:10 41.0 36.0-45.2 (%) Final MCV 01/06/2024 15:40:10 97.9 81.5-97.5 (fL) Final MCH 01/06/2024 15:40:10 30.3 27.0-34.0 (pg) Final MCHC 01/06/2024 15:40:10 31.0 32.0-36.0 (g/dL) Final RDW 01/06/2024 15:40:10 13.0 11.5-15.5 (%) Final Platelets 01/06/2024 15:40:10 378 140-400 (K /uL) Final MPV 01/06/2024 15:40:10 10.3 6.6-11.1 ( fL) Final Nucleated erythrocytes/100 leukocytes [Ratio] in Blood by Automated count 01/06/2024 15:40:10 0 <=0 (/100 WBCs) Fi nal Performing Location [facility] - [address] [place] [address]
--- OUTSIDE RECORDS SUMMARY | 2024-01-22 09:12 | External Medical Summary | Summary of Care ---
Author Name Unknown Organization [facility] Address [address] [place] [address] Phone [phone] Care Team Providers Care Business Strategist Name Role Phone Lindsey Gorodn MD Primary Care Prov ider Reason for Referral * Evaluate & Treat - Unlimited Visits (Within 10 days (routine)) - Authorized Specialty Diagnoses / Procedures Referred By Sabiha t Referred To Contact Neurology Diagnoses Spasm of muscle Nancie Dover CRNP [address] [place] [address] [place] [address] Referral ID Status Reason Start Date Expiration Date Visits Requested Visits Authorized [id number] Authorized Specialty Services Required 01/12/[phone] Question Answer Referral Priority Within 10 days (routine) Where should this appointment be scheduled? [facility] Is this referral being placed for insurance purposes ONLY No, patient needs appointment [facility] NEUROLOGY REFERRAL QUESTIONS Neuromuscular Reason for Visit * Reason Onset Date Comments Test Results Lab 01/12/2024 Encounter Details Date Type Department Care Team (Late st Contact Info) Description 01/12/2024 Telephone Family Medicine [facility] Cm [address] [place] [address] [place] [phone] Nancie Dover CRNP [address] [place] [address] [place] [id number] Test Results Lab Allergies Active Allergy Reactions [...] Release Take by mouth. Activ e MegaRed [place]-3 Krill Oil 500 MG Oral Capsule Take [...] Information Patient taking differently: 100 mcg Oral [id number], Reported on 10/13/2023 Tiotropium [place] Monohydrate 18 MCG Inhalation Capsule (Spiriva HandiHaler)Indicatio [...] Seasonal Influenza, Quadrivalent Hd (Fluzone Hd) 05/19/2023,04/26/2022 Seasonal Influenza, Split, IIV3, With Preserve, Inj 05/21/2005 documented as of [...] encounter Miscellaneous Notes * Telephone Encounter - Doris Gallo OSA - 01/12/2024 1:15 PM EDT Neurology appt scheduled, pt aware. * Telephone Encounter - Nancie Dover CRNP [...] 02/03/2024 10:40 AM EDT Office Visit Neurology [facility] [address] [place] [address] [place] [address] Joseph Dia, DO [address] [place] [address] 2024 9:40 AM EDT Office Visit Rheumatology [address] [place] [phone] Fabian Jensen MD [facility] [place] [address] 02/15/2024 10:25 AM EDT Office Visit Urogynecology [facility] [address] [place] [address] Yvan Pritchard MD [address] [place] [address] Nurse Evangelina Marina [facility] [address] [place] [address] 06/04/2024 1:00 PM EST Office Visit Gastroenterology, [facility] [address] [place] [address] Glenn Solo MD [address] [place] [address] Scheduled Orders Name Type Priority Associated Diagnoses Orde r Schedule HEPATIC FUNCTION PANEL Lab Routine Elevated LFTs Expected: 01/26/2024 (Approximate), Expires: 01/11/2025 Scheduled Referrals Name Type Priority Associated Diagnoses Orde r Schedule ADULT NEUROLOGY REFERRAL OP Referral Within 10 days (routine) Spasm of muscle Ordered: 01/12/2024 Health Maintenance Due Date Last Done Comments DISCUSS TOBACCO CESSATION (REFER TO SMARTSET #7362) 1950 Alpha-1 Antitrypsin 1969 Hepatitis C Screening [...] 06/08/2022, Additional history exists TSH 01/05/2025 01/06/2024, 1102/2023, 09/17/2022, Additional history exists Colonoscopy 11/24/2027 11/23/2017 Colorectal Cancer Screening 11/24/2027 VITAMIN D LEVEL ONCE IN A LIFETIME-USE SMARTSET# [id number] Completed 02/23/2023, 04/26/2022, 07/16/2021, Additional history exists [...] this encounter Medical Devices Implanted Type Area Home Health Manager Device Identifier Shelf Expiration Date Model / Serial / Lot Lens Li61ao 13.00mm 23.00 - [id number] - [id number] Implanted:Qty: 1 on 10/18/2023 by Jimmie Watkins MD at OR [facility] Right: Eye [employer] 05/17/2028 [id number] / [id number] / [id number] Lens Li61ao 13.00mm 23.00 - [id number] - [id number] Implanted:Qty: 1 on 11/01/2023 by Jimmie Watkins MD at OR [facility] Left: Eye BAUSCH [employer] LOMB 05/17/2028 [id number] / [id number] / [id number] documented as of this encounter Visit Diagnoses [...] Power of Attor carlton? No Care Teams Business Strategist Relationship Specialty Start Date End Date Lindsey Gordon MD [address] [place] [address] [place] [phone] PCP - General Family Medicine 06/17/23 documented as of this encounter
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
--- OUTSIDE RECORDS SUMMARY | 2024-01-22 09:13 | External Medical Summary | Summary of Care ---
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 1015 (Due) proparacaine (Alcaine) 0.5 % ophthalmic solution 1 Drop (COMPLETED) 1 Drop, Left eye, ONCE, On Tue11/01/23 at 1015, For 1 dose, PRE-OP: 15 minutes prior to scheduled surgery time for 1 dose, Pre-Op 0944 (Given - Provid er: Holly Ballard RN) tropicamide 1%-cyclopentolate 1%-phenylephrine 2.5% ophthalmic solution 1 Drop (COMPLETED) 1 Drop, Left eye, Q5 MINUTES, First dose on Tue11/01/23 at 1015, Last dose on Tue11/01/23 at 1025, For 3 doses, Pre-Op 0944 (Given - Provid er: Holly Ballard RN)0950 (Given - Provider: Holly Ballard RN)0956 (Given - Provider: Holly Ballard RN) Continuous Medication Order 10/30/2023 10/31/2023 11/01/2023 isolyte-S pH 7.4 infusion Intravenous, at 100 mL/hr, Plasma-LYTE 148, isolyte-S, and isolyte-S pH 7.4 are considered equivalent - including for MAR barcode scanning., CONTINUOUS, Starting on Tue11/01/23 at 1015, Until Tue11/01/23 at 1600, Pre-Op 0957 (New Bag - Prov ider: Holly Ballard RN)1055 (Continue from Pre-Op - Provider: Lizz Calloway CRNA)1116 (Anes Intra-Op Fluid - Provider: Lizz Calloway CRNA) PRN Medication Order 10/30/2023 10/31/2023 11/01/2023 Acetaminophen (Tylenol) tab 650 mg 650 mg, Oral, PRN Pain, Mild, Starting on Tue11/01/23 at 1125, Until Tue11/01/23 at 1600, For 1 dose, Maximum of 4 grams (4000 mg) per day., Post-op balanced salt solution (Bss) ophthalmic solution (CANCELED) ONCE PRN INTRA PROCEDURE, Starting on Tue11/01/23 at 1109, Until Tue11/01/23 at 1116, Intra-Op 1109 (Given - Provid er: Jimmie Watkins MD - Comment: qs) DUOVISC inj KIT (CANCELED) ONCE PRN INTRA PROCEDURE, Starting on Tue11/01/23 at 1109, Until Tue11/01/23 at 1116, Intra-Op 1109 (Given - Provid er: Jimmie Watkins MD - Comment: qs) hydroxypropyl methylcellulose ([place]) 2 % intraocular inj (CANCELED) ONCE PRN INTRA PROCEDURE, Starting on Tue11/01/23 at 1107, Until Tue11/01/23 at 1116, Intra-Op 1107 (Given - Provid er: Jimmie Watkins MD - Comment: qs) Lidocaine 1 % (PF) inj (CANCELED) ONCE PRN INTRA PROCEDURE, Starting on Tue11/01/23 at 1108, Until Tue11/01/23 at 1116, Intra-Op 1108 (Given - Provid er: Jimmie Watkins MD - Comment: qs) Moxifloxacin intracameral inj (CANCELED) ONCE PRN INTRA PROCEDURE, Starting on Tue11/01/23 at 1115, Until Tue11/01/23 at 1116, Intra-Op 1115 (Given - Provid er: Jimmie Watkins MD - Comment: qs) Tetracaine (Pontocaine) 0.5 % ophthalmic solution (CANCELED) ONCE PRN INTRA PROCEDURE, Starting on Tue11/01/23 at 1106, Until Tue11/01/23 at 1116, Intra-Op 1106 (Given - Provid er: Jamila Stratton RN - Comment: qs) Triamcinolone Acetonide (Triesence) ophth inj (CANCELED) ONCE PRN INTRA PROCEDURE, Starting on Tue11/01/23 at 1115, Until Tue11/01/23 at 1116, Intra-Op 1115 (Given - Provid er: Jimmie Watkins MD - Comment: qs) documented in this encounter Advance Directives Latest Code Status on File Code Status Date Activated Date Inactivated Comments Full Code 11/01/2023 9:34 AM 11/01/2023 4:00 PM This order reflects the patients wishes and were consensually agreed upon. Question Answer Comments Discussion of Advance Directives occurred with: Patient Does the patient have a Living Will? No Does the patient have Health Care Power of [place] Arche[employer] Professor? No Code Status History Code Status Date Activated Date Inactivated Comments Full Code 10/18/2023 10:57 AM 10/18/2023 4:55 PM This o rder reflects the patients wishes and were consensually agreed upon. Question Answer Comments Discussion of Advance Directives occurred with: Patient Does the patient have a Living Will? No Does the patient have Health Care Power of [place] Arche[employer] Professor? No Care Teams Vocal Artist Relationship Specialty Start Date End Date Lindsey Gordon MD [address] [place] [address] [place] [id number] PCP - General Family Medicine 06/17/23 documented as of this encounter
--- OUTSIDE RECORDS SUMMARY | 2024-01-22 09:13 | External Medical Summary | Summary of Care ---
Author Name Unknown Organization [facility] Address [address] [place] [facility] [address] Phone [phone] Care Team Providers Care Mapping Specialist Name Role Phone Lindsey Gordon MD Primary Care Prov ider Reason for Visit * Reason Comments Pre-op Clearance Encounter Details Date Type Department Care Team (Late st Contact Info) Description 10/05/2023 9:40 AM EDT Office Visit Family Medicine [address] [place] [phone] Karyn Khan PA-C [address] [place] [address] [place] [phone] Preop examination*; Bilateral impacted cerumen Allergies Active Allergy Reactions Criticality Noted Date Comments Penicillins 05/12/2001 documented as of this encounter (statuses as of 10/05/2023) Medications Medication Sig Dispensed Refills Start Date End Date Status Multiple Vitamins-Minerals (MULTIVITAMIN ADULTS 50+) TABS Take by mouth. 0 Active vitamin c (ASCORBIC ACID) 500 MG Tablet Take 1 Tablet by mouth in the morning. 0 Active Magnesium Cl-Calcium Carbonate 71.5-119 MG Oral Tablet Delayed Release Take by mouth. 0 Active MegaRed [place]-3 Krill Oil 500 MG Oral Capsule Take [...] MEDS 90 Tablet 3 07/08/2023 Active Tiotropium [place] Monohydrate 18 MCG Inhalation Capsule (Spiriva HandiHaler)Indicatio [...] Muscle spasms. 360 Tablet 0 09/12/2023 Active Varenicline Tartrate 1 MG Oral TabletIndications:To bacco use disorder Take 0.5 Tablets by mouth daily for 3 days, THEN 0.5 Tablets 2 times a day for 3 days, THEN 1 Tablet 2 times a day. As directed on box.. 200 Tablet 1 09/12/2023 4 Active Fluticasone-Salmeter ol 250-50 MCG/ACT Inhalation Aerosol Powder Breath Activated (Wixela Inhub) Inhale 1 Puff by mouth in the morning and 1 Puff before bedtime. 0 Active Garlique 400 MG Oral Tablet Delayed Release Take by mouth . 0 4 Discontinue d(Patient preference/ discontinua tion) Fluticasone-Salmeter ol 250-50 MCG/ACT Inhalation Aerosol Powder Breath Activated (Wixela Inhub) Inhale 1 Puff by mouth in the morning and 1 Puff before bedtime. 60 Each 2 07/19/2023 4 Discontinue d(Patient preference/ discontinua tion) Montelukast Sodium 10 MG Oral Tablet (Singulair)Indicatio ns:Seasonal allergies TAKE 1 TABLET BY MOUTH EVERY DAY IN THE MORNING 90 Tablet 1 09/12/2023 4 Discontinue d(Patient preference/ discontinua tion) documented as of this encounter (statuses as of 10/05/2023) Active Problems Problem Noted Date Diagnosed Date COPD, mild 08/05/2022 Chronic myofascial pain 04/26/2022 Ulnar neuropathy of both upper extremities 05/26 Overview: S/p multiple surgeries from [facility] Prediabetes 04/24/2020 Gastroesophageal reflux disease without esophagi tis 03/28/2020 Acquired hypothyroidism 03/28/2020 BMI less than 19,adult 03/28/2020 Senile osteoporosis 03/28/2020 Tobacco use disorder 03/28/2020 Celiac disease documented as of this encounter (statuses as of 10/05/2023) Resolved Problems Problem Noted Date Diagnosed Date Resolved Date Trigger middle finger of left hand 08/15/2020 03/30/2021 COPD exacerbation 05/26/2020 04/26/2022 Other atopic dermatitis 05/12/200112/2019 Overview: ICD-10 update of inactive term LOSS OF TEETH, ACQUIRED 12/2019 documented as of this encounter (statuses as of 10/05/2023) Immunizations Name Administration Dates Next Due COVID-19 [...] 2 48.2 Started: 1974 Smokeless Tobacco: Never Tobacco Cessation:Ready to Q [...] Sign Reading Time Taken Comments Blood Pressure 102/60 10/05/2023 9:33 AM EDT Pulse 80 10/05/2023 9:33 AM EDT Temperature 36.3 C (97.3 F) 10/05/2023 9:33 AM ED T Respiratory Rate 16 10/05/2023 9:33 AM EDT Oxygen Saturation - - Inhaled Oxygen Concentration - - Weight 50.9 kg (112 lb 5 oz) 10/05/2023 9:33 AM EDT Height - - Body Mass Index 18.49 03/23/2023 10:30 AM EDT documented in this encounter Progress Notes * Karyn Khan PA-C - 10/05/2023 9:45 AM EDT Nursing Notes: Maryam Ingram LPN 10/05/23 0933 Sign at exiting of workspace Pre op clearance for cataract by Dr. Watkins Right eye 4/2 Left eye 416 Pt here today for preop clearance for cataract eye surgery. She is having both eyes done - Dr. Watkins. Review of patient's allergies indicates: Allergen Reactions Penicillins Current Outpatient Medications Medication Sig Dispense Refill Multiple Vitamins-Minerals (MULTIVITAMIN ADULTS 50+) TABS Take by mouth. vitamin c (ASCORBIC ACID) 500 MG Tablet Take 1 Tablet by mouth in the morning. Magnesium Cl-Calcium Carbonate 71.5-119 MG Oral Tablet Delayed Release Take by mouth. MegaRed [place]-3 Krill Oil 500 MG Oral Capsule Take [...] AND OTHER MEDS 90 Tablet 3 Tiotropium [place] Monohydrate 18 MCG Inhalation Capsule (Spiriva HandiHaler) [...] facility-administered medications for this visit. Past Medical History: Diagnosis Date Acquired hypothyroidism 03/28/2020 BMI less than 19,adult 03/28/2020 Celiac disease Chronic myofascial pain 04/26/2022 COPD, severity to be determined (HCC) 05/26/2020 DENTURES Gastroesophageal reflux disease without esophagitis 03/28/2020 Tobacco use disorder Ulnar neuropathy of both upper extremities 05/26/2020 S/p multiple surgeries from [facility] Social History Socioeconomic History Marital status: Spouse name: Not on file Number of children: 2 Years of education: Not on file Highest education level: Not on file Occupational History Employer: [employer] Tobacco Use Smoking status: Every Day Current [...] Housing Stability: Not on file Past Surgical History: Procedure Laterality Date EGD, FLEXIBLE, DIAGNOSTIC 09/24/2021 normal / ESOPHAGOGASTRODUODENOSCOPY (EGD), FLEXIBLE, TRANSORAL, DIAGNOSTIC performed by Glenn Solo MD at ENDOSCOPY [facility] MAMMOGRAM - BILATERAL 11/06/2001 REMOVAL OF [...] or fail to improve. Karyn Khan PA-C documented in this encounter Nursing Notes * Maryam Ingram LPN - 10/05/2023 9:31 AM EDT Pre op clearance for cataract by Dr. Watkins Right eye 10/17 Left eye 10/31 documented in this encounter Plan of Treatment Upcoming Encounters Date Type Department Care Team (Latest Contact Info) Description 10/18/2023 12:48 PM EDT Hospital Encounter OR [facility], Operating Room [facility] [address] [place] [phone] Jimmie Watkins MD [address] [place] [phone] 10/18/2023 12:48 PM EDT - 10/18/2023 1:23 PM EDT Surgery OR [facility], Operating Room [facility] [address] [place] [phone] Jimmie Watkins MD [address] [place] [phone] RIGHT EXTRACAPSULAR CATARACT REMOVAL WITH INTRAOCULAR LENS 10/25/2023 1:00 PM EDT Imaging Radiology [address] [place] [address] 10/26/2023 2:40 PM EDT Office Visit Family Medicine [address] [place] [phone] Lindsey Gordon MD [address] [place] [address] [place] [phone] 11/01/2023 8:45 AM EDT Hospital Encounter OR [facility], Operating Room [facility] [address] [place] [phone] Jimmie Watkins MD [address] [address] 11/01/2023 8:45 AM EDT - 11/01/2023 9:20 AM EDT Surgery OR [facility], Operating Room [facility] [place] [phone] Jimmie Watkins MD [address] [address] LEFT EXTRACAPSULAR CATARACT REMOVAL WITH INTRAOCULAR LENS 2024 9:40 AM EDT Office Visit Rheumatology [address] [place] [phone] Fabian Jensen MD [address] [place] [phone] Scheduled Orders Name Type Priority Associated Diagnoses Orde r Schedule REMOVAL IMPACTED CERUMEN IRRIGATION/LAVAGE, UNILAT Procedures Routine Bilateral impacted cerumen Ordered: 10/05/2023 Scheduled Procedures Name Priority Associated Diagnoses Date/Ti me EXTRACAPSULAR CATARACT REMOVAL WITH INTRAOCULAR LENS Combined forms of age-related cataract of right eye 10/18/2023 12:48 PM EDT EXTRACAPSULAR CATARACT REMOVAL WITH INTRAOCULAR LENS Combined forms of age-related cataract of left eye 11/01/2023 8:45 AM EDT Health Maintenance Due Date Last Done Comments DISCUSS TOBACCO CESSATION (REFER TO SMARTSET #[id number]) 1950 Alpha-1 Antitrypsin 1969 Hepatitis C Screening 1969 DTaP,Tdap,and Td Vaccines (1 - Tdap) 1970 Cologuard 02/11/1996 Colonoscopy 02/11/1996 Colorectal Cancer Screening 02/11/1996 Fecal Occult Blood Test 02/11/1996 Sigmoidoscopy 02/11/1996 Zoster Vaccines (1 of 2) 2001 Depression Screening 03/28/2021 03/28/2020 Mammogram 06/08/2023 06/08/2022, 110 09/2020, 05/14/2020, Additional history exists DXA Scan 02/18/2024 02/17/2022, 06/17, 07/05/2019, Additional history exists HbA1c 05/25/2024 05/25/2023, 0 03/2023, 04/26/2022, Additional history exists TSH 05/25/2024 05/25/2023, 0 09/2022, 08/05/2022, Additional history exists O2 ASSESSMENT COMPLETED IN PAST YEAR FOR COPD 06/17/2024 06/17/2023 Lipid Panel 11/26/2024 11/27/2019, 11/23/2002 VITAMIN D LEVEL ONCE IN A LIFETIME-USE SMARTSET# [id number] Completed 02/23/2023, 04/26/2022, 07/16/2021, Additional history exists LUNG CANCER SCREENING - USE SMARTSET [id number] Completed 04/22/2023 Influenza Vaccine (FLU shot) Completed [...] as of this encounter Visit Diagnoses Diagnosis Preop examination- Primary Preoperative examination, unspecified Bilateral impacted cerumen Impacted cerumen Combined forms of age-related cataract of right eye Other and combined forms of senile cataract Combined forms of age-related cataract of left eye Other and combined forms of senile cataract documented in this encounter Care Teams Mapping Specialist Relationship Specialty Start Date End Date Lindsey Gordon MD [address] [place] [address] [place] [phone] PCP - General Family Medicine 06/17/23 documented as of this encounter
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
--- OUTSIDE RECORDS SUMMARY | 2024-01-22 09:13 | External Medical Summary ---
Author Name Unknown Address Unknown Organization K01:[facility] [place] [facility] [place] [address] Laboratory Report Ordering Provider Test Date Status MICHELLE WARE 01/06/2024 15:40:10 Final Observation Date Value Abnormality Reference (Units ) Status SYNC LEUKOCYTES IN BLOOD BY AUTOMATED COUNT 01/06/2024 15:40:10 10.26 4.00-10.80 (K/uL) Final Segs 01/06/2024 15:40:10 44.8 40.0-75.0 (%) Final Lymphs % 01/06/2024 15:40:10 40.2 18.0-42.0 (%) Final Monos 01/06/2024 15:40:10 11.6 Above high normal 1.0-11.0 (%) Final Eosinophils 01/06/2024 15:40:10 2.2 0.0-6.0 (%) Final Basos 01/06/2024 15:40:10 0.9 0.0-2.0 (%) Final Immature Granulocyte, Percent 01/06/2024 15:40:10 0.3 0.0-2.0 (%) Final Absolute Segs 01/06/2024 15:40:10 4.60 1.80-7.70 (K/uL) Final Lymphs, absolute 01/06/2024 15:40:10 4.12 1.00-4.80 (K/ul) Final Monos, Abs 01/06/2024 15:40:10 1.19 Above high normal 0.00-1.10 (K/uL) Final Eos, Abs 01/06/2024 15:40:10 0.23 0.00-0.70 (K/uL) Final Basos, Abs 01/06/2024 15:40:10 0.09 0.00-0.20 (K/uL) Final Immature Granulocytes, Number 01/06/2024 15:40:10 0.03 0.00-0.20 (K/uL) Final Performing Location [facility] [place] [address] [facility] [address]
--- OUTSIDE RECORDS SUMMARY | 2024-01-22 09:13 | External Medical Summary | Summary of Care ---
Author Name Unknown Organization [facility] Address [address] [place] [address] Phone [phone] Care Team Providers Care Signal Maintainer Name Role Phone Lindsey Gordon MD Primary Care Prov ider Reason for Referral * Precert (Within 10 days (routine)) - Authorized Specialty Diagnoses / Procedures Referred By Contac t Referred To Contact Radiology Diagnoses Pulmonary nodules Procedures CT CHEST LUNG CANCER SCREEN 3 OR 6 MONTH FOLLOW UP Haylee Jean CRNP [address] [place] [address] Referral ID Status Reason Start Date Expiration Date V isits Requested Visits Authorized [id number] Authorized 12/26/2023 999 999 Reason for Visit * Reason Onset Date Comments STAIR Lung Nodule 10/31/2023 Encounter Details Date Type Department Care Team (Late st Contact Info) Description 10/31/2023 Telephone STAIR LUNG NODULE [address] [place] [address] Haylee Jean CRNP [address] [place] [address] STAIR Lung Nodule Allergies Active Allergy Reactions Criticality Noted Date [...] Take by mouth. 0 Activ e MegaRed [place]-3 Krill Oil 500 MG Oral Capsule Take [...] Information Patient taking differently: 100 mcg Oral [id number], Reported on 10/13/2023 Tiotropium [place] Monohydrate 18 MCG Inhalation Capsule (Spiriva HandiHaler)Indicatio [...] EVERY DAY 360 Tablet 1 10/12/2023 Active Azithromycin 250 MG Oral Tablet (Zithromax Z-Indio) Take two tablets by mouth on first day, then 1 tablet daily until gone 6 Tablet 0 11/01/2023 Active documented as of this encounter (statuses [...] encounter Miscellaneous Notes * Telephone Encounter - Haylee Jean CRNP - 11/01/2023 9:01 AM EDT Spoke to Magalis and discussed CT results. Reports that she has been coughing a lot- increased cough and sputum. Denies fever or cold symptoms. Reports that she was sick all winter. States that she is coughing more with the inhalers. Will order antibiotic and repeat CT in 2 months. * Telephone Encounter - Haylee Jean CRNP - 10/31/2023 12:51 PM EDT Called with LDCT results- LR0 Stable RUL 7 mm pleural nodule, several new nodules RML/RLL < 6 mm. New RLL infiltrate. Unable to reach by phone, left VM message. Message states "this is Santiago." Will assess for infectious symptoms, consider antibiotics and plan to repeat CT in 2-3 months. documented in this encounter Plan of Treatment Upcoming Encounters Date Type Department Care Team (Pia Contact Info) Description 2024 9:40 AM EDT Office Visit Rheumatology [address] [place] [phone] Fabian Jensen MD [address] [employer] [place] [address] Scheduled Orders Name Type Priority Associated Diagnoses Orde r Schedule CT CHEST LUNG CANCER SCREEN 3 OR 6 MONTH FOLLOW UP Medical Imaging Routine Pulmonary nodules Expected: 12/26/2023, Expires: 11/30/2024 Health Maintenance Due Date Last Done Comments DISCUSS TOBACCO CESSATION (REFER TO SMARTSET #3431) 1950 Alpha-1 Antitrypsin 1969 Hepatitis C Screening [...] D LEVEL ONCE IN A LIFETIME-USE SMARTSET# [id number] Completed 02/23/2023, 04/26/2022, 07/16/2021, Additional history exists [...] this encounter Medical Devices Implanted Type Area Compliance Testing Analyst Device Identifier Shelf Expiration Date Model / Serial / Lot Lens Li61ao 13.00mm 23.00 - [id number] - [id number] Implanted:Qty: 1 on 10/18/2023 by Jimmie Watkins MD at [facility] Right: Eye [employer] 05/17/2028 [id number] / [id number] / [id number] Lens Li61ao 13.00mm 23.00 - [id number] - [id number] Implanted:Qty: 1 on 11/01/2023 by Jimmie Watkins MD at OR [facility] Left: Eye [employer] 05/17/2028 [id number] / [id number] / [id number] documented as of this encounter Visit Diagnoses Diagnosis Pulmonary nodules- Primary Other nonspecific abnormal finding of lung field documented in this encounter Advance Directives Latest Code Status on File Code Status Date Activated Date Inactivated Comments Full Code 11/01/2023 9:34 AM 11/01/2023 4:00 PM This order reflects the patients wishes and were consensually agreed upon. Question Answer Comments Discussion of Advance Directives occurred with: Patient Does the patient have a Living Will? No Does the patient have Health Care Power of Thread Laster? No Code Status History Code Status Date Activated Date Inactivated Comments Full Code 10/18/2023 10:57 AM 10/18/2023 4:55 PM This o rder reflects the patients wishes and were consensually agreed upon. Question Answer Comments Discussion of Advance Directives occurred with: Patient Does the patient have a Living Will? No Does the patient have Health Care Power of Thread Laster? No Care Teams Signal Maintainer Relationship Specialty Start Date End Date Lindsey Gordon MD [address] [place] [address] [place] [phone] PCP - General Family Medicine 06/17/23 documented as of this encounter
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
--- OUTSIDE RECORDS SUMMARY | 2024-01-22 09:13 | External Medical Summary | Summary of Care ---
Author Name Unknown Organization [facility] Address [address] [place] [address] Phone [phone] Care Team Providers Care Front Man Name Role Phone Vianey Garland MD Primary Care Prov ider Reason for Visit * Reason Comments eRx-Medication Refill Encounter Details Date Type Department Care Team (Late st Contact Info) Description 10/11/2023 Refill Family Medicine [address] [phone] Vianey Garland MD [address] [place] [address] [place] [address] Leg cramps Allergies Active Allergy Reactions Criticality Noted Date [...] Release Take by mouth. 0 Active MegaRed [place]-3 Krill Oil 500 MG Oral Capsule Take [...] MEDS 90 Tablet 3 3 Active Tiotropium [place] Monohydrate 18 MCG Inhalation Capsule (Spiriva HandiHaler)Indicati ons:COPD, mild (HCC) Inhale 1 Capsule by mouth in the morning. For inhaler only, do not swallow.. 30 Capsule 6 3 Active Omeprazole 20 MG Oral Capsule Delayed Release (PriLOSEC) TAKE 1 CAPSULE BY MOUTH TWICE A DAY 180 Capsule 3 4 Active Varenicline Tartrate 1 MG Oral TabletIndications:T obacco use disorder Take 0.5 Tablets by mouth daily for 3 days, THEN 0.5 Tablets 2 times a day for 3 days, THEN 1 Tablet 2 times a day. As directed on box.. 200 Tablet 1 4 12/17/19 24 Active Fluticasone-Salmete rol 250-50 MCG/ACT Inhalation Aerosol [...] EVERY DAY 360 Tablet 1 4 Active Calcium Carb-Cholecalcifero l 600-10 MG-MCG Oral Tablet TAKE 4 TABLETS BY MOUTH EVERY DAY 360 Tablet 1 3 10/12/19 24 Discontinued(Ref ill) tiZANidine HCl 4 MG Oral Tablet (Zanaflex)Indicatio ns:Leg cramps Take 1 Tablet by mouth every 6 hours as needed for Muscle spasms. 360 Tablet 0 4 10/12/19 24 Discontinued documented as of this encounter [...] Telephone Encounter - Vianey Garland MD - 10/12/2023 4:18 PM EDT Signed Prescriptions: Disp Refills tiZANidine HCl 4 MG Oral Tablet (Zanaflex) 360 Ta*1 Sig: TAKE 1 TABLET BY MOUTH EVERY 6 HOURS NEEDED FOR MUSCLE SPASMS. Authorizing Provider: VIANEY GARLAND Calcium Carb-Cholecalciferol 600-10 MG-MCG*360 Ta*1 Sig: TAKE 4 TABLETS BY MOUTH EVERY DAY Authorizing Provider: VIANEY GARLAND * Telephone Encounter - Maya Dobbs RN - 10/12/2023 8:36 AM EDTPending Prescriptions: Disp Refills tiZANidine HCl 4 MG Oral Tablet (Zanaflex) 360 Ta*1 Sig: TAKE 1 TABLET BY MOUTH EVERY 6 HOURS NEEDED FOR MUSCLE SPASMS. Calcium Carb-Cholecalciferol 600-10 MG-MCG*360 Ta*1 Sig: TAKE 4 TABLETS BY MOUTH EVERY DAY * Telephone Encounter - Maya Dobbs RN - 10/12/2023 8:35 AM EDT Pending Prescriptions: Disp Refills tiZANidine HCl 4 MG Oral Tablet (Zanaflex*360 Ta*0 Sig: TAKE 1 TABLET BY MOUTH EVERY 6 HOURS NEEDED FOR MUSCLE SPASMS. Calcium Carb-Cholecalciferol 600-10 MG-MC*360 Ta*1 Sig: TAKE 4 TABLETS BY MOUTH EVERY DAY Last Visit: 10/05/2023 (in office), Visit date not found (telemedicine) Next Visit: 10/26/2023 Last date the medication was ordered: 09/12/23 Patient Active Problem List Diagnosis Code Celiac disease K90.0 Gastroesophageal reflux disease without esophagitis K21.9 Acquired hypothyroidism E03.9 BMI less than 19,adult Z68.1 Senile osteoporosis M81.0 Tobacco use disorder F17.200 Prediabetes R73.03 Ulnar neuropathy of both upper extremities G56.23 Chronic myofascial pain M79.18, G89.29 COPD, mild (HCC) J44.9 Labs: Lab Results Component Value Date/Time CREATININE - [facility] 0.7 05/25/2023 03:43 PM CREATININE - [facility] 0.7 03/28/2020 10:27 AM CREATININE-OUTSIDE LAB 0.65 11/27/2019 12:00 AM Lab Results Component Value Date/Time POTASSIUM - [facility] 4.1 05/25/2023 03:43 PM POTASSIUM - [facility] 4.5 03/28/2020 10:27 AM POTASSIUM-OUTSIDE LAB 4.0 11/27/2019 12:00 AM Lab Results Component Value Date/Time TSH - [facility] 2.37 05/25/2023 03:43 PM TSH - [facility] 2.77 03/28/2020 10:27 AM [...] Date/Time HEMOGLOBIN A1C - [facility] 5.9 (H) 05/25/2023 03:43 PM HEMOGLOBIN A1C - [facility] 6.1 (H) 02/23/2023 11:40 AM HEMOGLOBIN A1C - [facility] 5.9 (H) 04/26/2022 11:30 AM * Telephone Encounter - Roberto Carlos Cheng - 10/12/2023 4:43 AM EDTPending Prescriptions: Disp Refills tiZANidine HCl 4 MG Oral Tablet [Pharmacy *360 Ta*0 Sig: Take 1Tablet by mouth every 6 hours as needed for Muscle spasms. documented in this encounter Plan of Treatment Upcoming Encounters Date Type Department Care Team (Latest Contact Info) Description 10/18/2023 11:35 AM EDT Hospital Encounter OR [facility], Operating Room [facility] [address] [place] [phone] Jimmie Watkins MD [address] [place] [address] 10/18/2023 11:35 AM EDT - 10/18/2023 12:10 PM EDT Surgery OR [facility], Operating Room [facility] [address] [place] [phone] Jimmie Watkins MD [address] [address] RIGHT EXTRACAPSULAR CATARACT REMOVAL WITH INTRAOCULAR LENS 10/25/2023 1:00 PM EDT Imaging Radiology [address] 132 [facility] [place] [address] 10/26/2023 2:40 PM EDT Office Visit Family Medicine [address] [place] [phone] Vianey Garland MD [address] [place] [address] [place] [address] 11/01/2023 8:56 AM EDT Hospital Encounter OR [facility], Operating Room [facility] 132 [facility] [place] [phone] Jimmie Watkins MD [address] [address] 11/01/2023 8:56 AM EDT - 11/01/2023 9:31 AM EDT Surgery OR [facility], Operating Room [facility] 132 [facility] [place] [phone] Jimmie Watkins MD [address] [address] LEFT EXTRACAPSULAR CATARACT REMOVAL WITH INTRAOCULAR LENS 2024 9:40 AM EDT Office Visit Rheumatology [address] [place] [phone] Fabian Jensen MD [facility] [place] [address] Scheduled Procedures Name Priority Associated Diagnoses Date/Ti me EXTRACAPSULAR CATARACT REMOVAL WITH INTRAOCULAR LENS Combined forms of age-related cataract of right eye 10/18/2023 11:35 AM EDT EXTRACAPSULAR CATARACT REMOVAL WITH INTRAOCULAR LENS Combined forms of age-related cataract of left eye 11/01/2023 8:56 AM EDT Health Maintenance Due Date Last Done Comments DISCUSS TOBACCO CESSATION (REFER TO SMARTSET #1365) 1950 Alpha-1 Antitrypsin 1969 Hepatitis C Screening 1969 DTaP,Tdap,and Td Vaccines (1 - Tdap) 1970 Cologuard 02/11/1996 Colonoscopy 02/11/1996 Colorectal Cancer Screening 02/11/1996 Fecal Occult Blood Test 02/11/1996 Sigmoidoscopy 02/11/1996 Zoster Vaccines (1 of 2) 2001 Depression Screening 03/28/2021 03/28/2020 Mammogram 06/08/2023 06/08/2022, 11/0 09/2020, 05/14/2020, Additional history exists DXA Scan 02/18/2024 02/17/2022, 06/17, 07/05/2019, Additional history exists HbA1c 05/25/2024 05/25/2023, 08/0 03/2023, 04/26/2022, Additional history exists TSH 05/25/2024 05/25/2023, 03/0 09/2022, 08/05/2022, Additional history exists O2 ASSESSMENT COMPLETED IN PAST YEAR FOR COPD 06/17/2024 06/17/2023 Lipid Panel 11/26/2024 11/27/2019, 11/23/2002 VITAMIN D LEVEL ONCE IN A LIFETIME-USE SMARTSET# [id number] Completed 02/23/2023, 04/26/2022, 07/16/2021, Additional history exists LUNG CANCER SCREENING - USE SMARTSET 83519 Completed 04/22/2023 Influenza Vaccine (FLU shot) Completed [...] Diagnoses Diagnosis Leg cramps Cramp of limb Combined forms of age-related cataract of right eye Other and combined forms of senile cataract Combined forms of age-related cataract of left eye Other and combined forms of senile cataract documented in this encounter Care Teams Front Man Relationship Specialty Start Date End Date Vianey Garland MD [address] [place] [address] [place] [phone] PCP - General Family Medicine 06/17/23 documented as of this encounter
--- OUTSIDE RECORDS SUMMARY | 2024-01-22 09:13 | External Medical Summary | Summary of Care ---
Author Name Unknown Organization [facility] Address [address] [place] [address] Phone [phone] Care Team Providers Care Mine Motor Engineer Name Role Phone Lindsey Gordon MD Primary Care Prov ider Reason for Visit * Reason Onset Date Comments Health Maintenance 10/19/2023 Encounter Details Date Type Department Care Team (Late st Contact Info) Description 10/19/2023 Telephone Family [address] [phone] Lindsey Gordon MD [address] [place], [place] [address] [phone] Health Maintenance Allergies Active Allergy Reactions Criticality Noted Date [...] Take by mouth. 0 Activ e MegaRed [place]-3 Krill Oil 500 MG Oral Capsule Take [...] Information Patient taking differently: 100 mcg Oral [id number], Reported on 10/13/2023 Tiotropium [place] Monohydrate 18 MCG Inhalation Capsule (Spiriva HandiHaler)Indicatio [...] encounter Miscellaneous Notes * Telephone Encounter - Deja Munoz LPN - 10/19/2023 9:56 AM EDT Care Gaps Comprehensive Care Outreach Last Office/Telemedicine Visit: 10/05/2023 (in office), Visit date not found (telemedicine) Next Office Visit: 10/26/2023 Hemoglobin AIC Results: Lab Results Component Value Date/Time HEMOGLOBIN A1C - [facility] 5.9 (H) 05/25/2023 03:43 PM HEMOGLOBIN A1C - [facility] 6.1 (H) 02/23/2023 11:40 AM HEMOGLOBIN A1C - [facility] 5.9 (H) 04/26/2022 11:30 AM BP Readings from Last 1 Encounters: 10/18/23 94/60 Reviewed Health Maintenance below: Health Maintenance Topic Date Due DISCUSS TOBACCO CESSATION (REFER TO SMARTSET #3298) Never done Alpha-1 Antitrypsin Never done Hepatitis C Screening Never done DTaP,Tdap,and Td Vaccines (1 - Tdap) Never done Colorectal Cancer Screening Never done Zoster Vaccines (1 of 2) Never done Depression Screening 03/28/2021 Mammogram 06/08/2023 DXA Scan 02/18/2024 Mamm colon Care Gap Outreach Action Taken: Unable to reach documented in this encounter Plan of Treatment Upcoming Encounters Date Type Department Care Team (Latest Contact Info) Description 10/25/2023 1:00 PM EDT Imaging Radiology [facility] 132 [facility] [place] [phone] 10/26/2023 2:40 PM EDT [facility] [address] [place] [address] [place] [phone] Lindsey Gordon MD [address] [place] [address] [place] [address] 11/01/2023 8:56 AM EDT Hospital Encounter OR [facility], Operating Room [facility] [address] [place] [phone] Jimmie Watkins MD [address] [address] 11/01/2023 8:56 AM EDT - 11/01/2023 9:31 AM EDT Surgery OR [facility], Operating Room [facility] [address] [place] [phone] Jimmie Watkins MD [address] [address] LEFT EXTRACAPSULAR CATARACT REMOVAL WITH INTRAOCULAR LENS 2024 9:40 AM EDT Office Visit Rheumatology [address] [place] [phone] Fabian Jensen MD [facility]0 [facility] [place] [address] Scheduled Procedures Name Priority Associated Diagnoses Date/Ti me EXTRACAPSULAR CATARACT REMOVAL WITH INTRAOCULAR LENS Combined forms of age-related cataract of left eye 11/01/2023 8:56 AM EDT Health Maintenance Due Date Last Done Comments DISCUSS TOBACCO CESSATION (REFER TO SMARTSET #1216) 1950 Alpha-1 Antitrypsin 1969 Hepatitis C Screening [...] 05/25/2023, 080 03/2023, 04/26/2022, Additional history exists TSH 05/25/2024 05/25/2023, 09/2022, 08/05/2022, Additional history exists O2 ASSESSMENT COMPLETED IN PAST YEAR FOR COPD 10/17/2024 10/18/2023 Lipid Panel 11/26/2024 11/27/2019, 11/23/2002 VITAMIN D LEVEL ONCE IN A LIFETIME-USE SMARTSET# [id number] Completed 02/23/2023, 04/26/2022, 07/16/2021, Additional history exists LUNG CANCER SCREENING - USE SMARTSET 01803 Completed 04/22/2023 Influenza Vaccine (FLU shot) Completed [...] this encounter Medical Devices Implanted Type Area Clinic Lead Device Identifier Shelf Expiration Date Model / Serial / Lot Lens Li61ao 13.00mm 23.00 - [id number] - [id number] Implanted:Qty: 1 on 10/18/2023 by Jimmie Watkins MD at OR [facility] Right: Eye [employer] LOM[employer] 05/17/2028 [id number] / [id number] / [id number] documented as of this encounter Advance Directives Latest Code Status on File Code Status Date Activated Date Inactivated Comments Full Code 10/18/2023 10:57 AM 10/18/2023 4:55 PM This o rder reflects the patients wishes and were consensually agreed upon. Question Answer Comments Discussion of Advance Directives occurred with: Patient Does the patient have a Living Will? No Does the patient have Health Care Power of Radiation Control Technician? No Care Teams Mine Motor Engineer Relationship Specialty Start Date End Date Lindsey Gordon MD [address] [place] [address] [place] [address] PCP - General Family Medicine 06/17/23 documented as of this encounter
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
--- OUTSIDE RECORDS SUMMARY | 2024-01-22 09:13 | External Medical Summary | Summary of Care ---
Author Name Unknown Organization [facility] Address [address] [facility] [place] [address] Phone [phone] Care Team Providers Care High Speed Warper Tender Name Role Phone Lindsey Gordon MD Primary Care Prov ider Reason for Visit * Reason Comments NEW PATIENT Right foot injury Encounter Details Date Type Department Care Team (Late st Contact Info) Description 08/31/2023 10:00 AM EST Office Visit Orthopaedics [facility] [address] [place] [address] Herberth Bush MD [address] [place] [phone] Closed nondisplaced fracture of proximal phalanx of lesser toe of right foot, initial encounter* Allergies Active Allergy Reactions Criticality Noted Date [...] Release Take by mouth. 0 Active MegaRed [place]-3 Krill Oil 500 MG Oral Capsule Take [...] MEDS 90 Tablet 3 07/08/2023 Active Tiotropium [place] Monohydrate 18 MCG Inhalation Capsule (Spiriva HandiHaler)Indication [...] 4 MG Oral Tablet (Zanaflex)Indications :Leg cramps TAKE 1 TABLET BY MOUTH EVERY 6 HOURS NEEDED FOR MUSCLE SPASMS. 120 Tablet 0 08/19/2023 Active Montelukast Sodium 10 MG Oral Tablet (Singulair)Indication s:Seasonal allergies TAKE 1 TABLET BY MOUTH EVERY DAY IN THE MORNING 30 Tablet 5 08/19/2023 Active documented as of this encounter (statuses [...] as of this encounter Progress Notes * Herberth Bush MD - 08/31/2023 10:11 AM EST ORTHOPAEDIC SURGERY - Clinic Note SUBJECTIVE: Magalis Archuleta is a 73 year old female. Chief Complaint Patient presents with NEW PATIENT Right foot injury ASSESSMENT: S92.514A Closed nondisplaced fracture of proximal phalanx of lesser toe of right foot, initial encounter (primary encounter diagnosis) PLAN: We discussed diagnosis and treatment options with the patient today. At this time we recommend thatthe patient transition from the short walker boot to a stiff-soled shoe. She may weight bear as tolerated. We instructed her on the use of tor tape. Patient may follow up as needed. There are no Patient Instructions on file for this visit. Follow Up: Return if symptoms worsen or fail to improve. Patient continues to have pain she may benefit from seeing podiatry for evaluation and treatment management. HPI: This is a 73 year old female seen for consultation at the request of Lindsey Cantu MDwith a 3 week(s) Hx of Right foot pain. Patient states that she stubbed her toes and developed pain. She presented to an emergency room and was placed in a short walker boot. She presents to our office today for evaluation. Patient states that she does have some pain in the 4th and 5th toes. He hasbeen using the walker boot. 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 Interval history - Nursing Notes: Helen Dowling LPN 08/31/23 0952 Signed Presents for right foot injury DOI 08/04/23. Was seen at [facility] ED , states hit toe on a wooden box. Presents wearing a low tide boot. 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 Helen Sosa LPN. Review of Systems: Constitutional ROS: No fevers, sweats, or chills Cardiovascular ROS: No chest pain Gastrointestinal ROS: No abdominal pain Musculoskeletal/Extremities ROS: Chief Complaint Patient presents with NEW PATIENT Right foot injury Neurologic ROS: Denies numbness and tingling Review of patient's allergies indicates: Allergen Reactions Penicillins Current Outpatient Medications Medication Sig Dispense Refill Garlique 400 MG Oral Tablet Delayed Release Take by mouth . Multiple Vitamins-Minerals (MULTIVITAMIN ADULTS 50+) TABS Take by mouth. vitamin c (ASCORBIC ACID) 500 MG Tablet Take 1 Tablet by mouth in the morning. Magnesium Cl-Calcium Carbonate 71.5-119 MG Oral Tablet Delayed Release Take by mouth. MegaRed [place]-3 Krill Oil 500 MG Oral Capsule Take by mouth. Albuterol Sulfate HFA 108 (90 Base) MCG/ACT Inhalation Aerosol Solution Inhale 2 Puffs by mouth every 4 hours as needed for Wheezing. 18 g 3 Calcium Carb-Cholecalciferol 600-10 MG-MCG Oral Tablet TAKE 4 TABLETS BY MOUTH EVERY DAY 360 Tablet1 Fluticasone Furoate-Vilanterol 100-25 MCG/ACT Inhalation Aerosol Powder Breath Activated (BREO ellipta) Inhale 1 Puff by mouth in the morning. 60 Each 5 Varenicline Tartrate 1 MG Oral Tablet Take 0.5 Tablets by mouth daily for 3 days, THEN 0.5 Tablets 2 times a day for 3 days, THEN 1 Tablet 2 times a day. As directed on box.. 200 Tablet 1 Levothyroxine Sodium 100 MCG Oral Tablet (Levoxyl) TAKE 1 TABLET BY MOUTH DAILY 30 MINUTES PRIOR TOFIRST MEAL OF THE DAY AND OTHER MEDS 90 Tablet 3 Tiotropium [place] Monohydrate 18 MCG Inhalation Capsule (Spiriva HandiHaler) Inhale 1 Capsule by mouth in the morning. For inhaler only, do not swallow.. 30 Capsule 6 Fluticasone-Salmeterol 250-50 MCG/ACT Inhalation Aerosol Powder Breath Activated (Wixela Inhub) Inhale 1 Puff by mouth in the morning and 1 Puff before bedtime. 60 Each 2 Omeprazole 20 MG Oral Capsule Delayed Release (PriLOSEC) TAKE 1 CAPSULE BY MOUTH TWICE A DAY 180 Capsule 3 tiZANidine HCl 4 MG Oral Tablet (Zanaflex) TAKE 1 TABLET BY MOUTH EVERY 6 HOURS NEEDED FOR MUSCLE SPASMS. 120 Tablet 0 Montelukast Sodium 10 MG Oral Tablet (Singulair) TAKE 1 TABLET BY MOUTH EVERY DAY IN THE MORNING 30Tablet 5 No current facility-administered medications for this visit. Patient Active Problem List Diagnosis Code Celiac [...] upper extremities 05/26/2020 S/p multiple surgeries from [facility] Past Surgical History: Procedure Laterality Date EGD, FLEXIBLE, DIAGNOSTIC 09/24/2021 normal / ESOPHAGOGASTRODUODENOSCOPY (EGD), FLEXIBLE, TRANSORAL, DIAGNOSTIC performed by Glenn Solo MD at [facility]COPY [facility] MAMMOGRAM - BILATERAL 11/06/2001 REMOVAL OF TONSILS, AGE 12+ 07/18/1964 REMOVE GALLBLADDER 07/18/1970 Did have gall stones TOTAL ABD HYSTERECTOMY W/WO REMOVAL OF TUBE(S) has ovaries Social History Tobacco Use Smoking status: Every Day Packs/day: 2.00 Years: 47.00 Additional pack years: 0.00 Total pack years: 94.00 Types: Cigarettes Start date: 1975 Smokeless tobacco: Never Tobacco comments: started age 26 Substance Use Topics Alcohol use: No Drug use: No Family history: Noncontributory OBJECTIVE: Diagnostic Testing: X-rays of the right foot from today. Those x-rays show evidence of nondisplaced fractures of the proximal phalanx of the 4th. There is evidence of a medial lip fracture of the proximal phalanx of the5th. No evidence dislocation. No evidence of joint incongruity. Vital Signs: There were no vitals taken for this visit. Physical Exam: Evaluation of the right foot. There is no evidence of ecchymosis or bruising. She does have some swelling over the 4th and 5th toes. Patient is tender palpation along the MTP joints of the 4th and 5th. Sensation is intact throughout. No evidence of skin breakdown. This chart was completed in part utilizing [employer] Speech Voice Recognition Software. Grammatical errors, random word insertions, pronoun errors, and incomplete sentences are an occasional consequence of this system due to software limitations, ambient noise, and hardware issues. Any formal questions or concerns about the content, text, or information contained within the body of this dictation should be directly addressed to the provider for clarification. Herberth Bush MD Orthopaedics [address] [address] Orthopedic Sports Medicine Surgery 08/31/2023 documented in this encounter Nursing Notes * Helen Dowling LPN - 08/31/2023 9:45 AM EST Presents for right foot injury DOI 08/04/23. Was seen at [facility] , states hit toe on a wooden box. Presents wearing a low tide boot. 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 Helen Sosa LPN. documented in this encounter Plan of Treatment Upcoming Encounters Date Type Department Care Team (Late st Contact Info) Description 10/18/2023 Hospital Encounter OR [facility], Operating Room [facility] [address] [place] [address] [place] [phone] Jimime Watkins MD [address] [place] [address] 10/25/2023 1:00 PM EDT Imaging Radiology [facility] [address] [place] [address] 10/26/2023 2:40 PM EDT Office Visit [address] [phone] Lindsey Gordon MD [address] [place] [address] [place] [address] 11/01/2023 Hospital Encounter OR [facility], Operating Room [facility] [address] [place] [phone] Jimmie Watkins MD [address] [facility] [address] [address] 2024 9:40 AM EDT Office Visit Rheumatology [address] [place] [phone] Fabian Jensen MD [facility] [place] [employer] [place], [place] [address] Pending Results Name Type Priority Associated Diagnoses Date /Time XR FOOT 3 OR MORE VIEWS Medical Imaging Routine 08/31/2023 10:12 AM EST Scheduled Procedures Name Priority Associated Diagnoses Date/Ti me EXTRACAPSULAR CATARACT REMOV AL WITH INTRAOCULAR LENS Combined forms of age-related cataract of right eye EXTRACAPSULAR CATARACT REMOV AL WITH INTRAOCULAR LENS Combined forms of age-related cataract of left eye Health Maintenance Due Date Last Done Comments DISCUSS TOBACCO CESSATION (REFER TO SMARTSET #5009) 1950 Alpha-1 Antitrypsin 1969 Hepatitis C Screening [...] D LEVEL ONCE IN A LIFETIME-USE SMARTSET# [id number] Completed 02/23/2023, 04/26/2022, 07/16/2021, Additional history exists LUNG CANCER SCREENING - USE SMARTSET [id number] Completed 04/22/2023 Influenza Vaccine (FLU shot) Completed [...] as of this encounter Visit Diagnoses Diagnosis Closed nondisplaced fracture of proximal phalanx of lesser toe of right foot, initial encounter- Primary documented in this encounter Care Teams High Speed Warper Tender Relationship Specialty Start Date End Date Lindsye Gordon MD [address] [place] [address] [place] [id number] PCP - General Family Medicine 06/17/23 documented as of this encounter
[2024-01-22] MEDS: SODIUM CHLORIDE 0.9% 1,000 ML IV SCH (09:34)
--- NOTE | 2024-01-22 09:34 | Emergency Department Note ---
Impression & Plan Hypoxia, SOB (shortness of breath), Pneumonia, Leukocytosis, COPD exacerbation, Hypomagnesemia ED Provider Note NAME: KIKE THOMSON AGE: 73 SEX: F : 1950 ARRIVES VIA: Walk-In INFORMANT: [Patient] ED PROVIDER(S): [Walker Mitchell MD] CHIEF COMPLAINT: Illness HISTORY OF PRESENT ILLNESS: The patient is a 73-year-old female who has been sick for a week. She has a cold which seems to have moved to her chest. She is coughing up green mucus. She has been short of breath especially with exertion. She has had some loose stool but no vomiting, no fever. She is trying Mucinex with minimal relief. The patient does have COPD. She has inhalers. She is concerned that she could be dehydrated or maybe even have pneumonia. PMHx/PSHx/Social Hx: See Below PHYSICAL EXAM: GENERAL: Patient is in no acute distress. HEENT: No acute trauma, normocephalic atraumatic, mucous membranes moist, no nasal congestion. NECK: No stridor, no adenopathy, no meningismus, trachea is midline. LUNGS: Diminished breath sounds bilaterally, no wheezing or rhonchi. No respiratory distress. HEART: Mildly tachycardic, regular rhythm, no murmurs. ABDOMEN: Soft, nontender, no peritonitis. EXTREMITIES: No cyanosis, full range of motion of all the joints without pain or difficulty. NEUROLOGIC: Oriented x 3, no acute motor or sensory deficits, no focal weakness. SKIN: No jaundice, no diaphoresis. DIFFERENTIAL DIAGNOSIS: Bronchitis or pneumonia, viral illness, exacerbation of COPD, dehydration, electrolyte imbalance, among others. EMERGENCY DEPARTMENT PROCEDURES: MEDICAL DECISION MAKING: There is a moderate leukocytosis, this could be consistent with infection. There was a normal hemoglobin and platelet count. No coagulopathy. Magnesium was slightly low at 1.5, no renal failure. No concerning liver enzyme elevation. ECG shows a normal sinus rhythm, no obvious acute ischemia. Cardiac enzyme testing x 1 was not consistent with acute cardiac injury. Respiratory bio fire was negative. Chest x-ray shows a potential left lower lung infiltrate. Chest CT shows the same infiltrate, no PE. The patient did become hypoxic while here in the ED. The sat was in the mid 80s without O2 supplementation. The patient received IV saline, 1.5 L. She was given IV Solu-Medrol, IV magnesium and IV ceftriaxone. She received oral Zithromax. The patient was given a DuoNeb. The patient is borderline hypotensive. She presents with dyspnea and was found to be hypoxic. She likely has an early pneumonia/bronchitis with a flare of her COPD. The patient was given nasal cannula O2 supplementation. She has been aggressively managed here in the ED. She does seem improved. I do think she requires a hospital stay given her findings. I spoke with the patient and case management, the on-call hospitalist was consulted. Prior/Outside records/notes reviewed: None ECG per my interpretation: Indication was shortness of breath. The ECG shows a normal sinus rhythm with a rate of 86. There is an old inferior infarct. There is poor R wave progression. No PVCs, no ST elevation. The QTc is 406. Continuous Cardiac Monitoring per my interpretation: An order was placed for continuous cardiac monitoring. The monitor shows a rate of 87 with normal sinus rhythm. Imaging/x-ray results per my interpretation: Chest x-ray shows a consolidation at the left lower lung, this could be consistent with an early pneumonia. There was no pneumothorax or CHF Chronic Medical/Social conditions affecting care: Advanced age, history of COPD. Care/Management discussed with: Case management, the on-call hospitalist. Level of care consideration(s): After review of the information above and other included data: --I believe the patient requires escalation of care to admission Critical Care Note: I have personally spent 42 minutes of critical care time in the direct management of this patient. This includes bedside care, interpretation of diagnostic studies, and testing, discussion with consultants, patient, and family members, and other required patient management activities. This 42 minutes is in excess of all separately billable procedures. DISPOSITION: Admission Past Med/Surg History Problem List (Updated 01/22/24 @ 15:30 by Walker Mitchell MD) Hypomagnesemia (Acute) COPD exacerbation (Acute) Leukocytosis (Acute) Pneumonia (Acute) SOB (shortness of breath) (Acute) Hypoxia (Acute) Left lower lobe pneumonia Prediabetes Chronic myofascial pain Celiac disease Acquired hypothyroidism COPD (chronic obstructive pulmonary disease) Acute bronchitis due to Rhinovirus (Acute) Acute exacerbation of chronic obstructive airways disease (Acute) Medical History Osteoporosis Ulnar neuropathy of both upper extremities Acute hypoxemic respiratory failure Hypoxemia Social History Smoking Status: Current every day smoker Tobacco Type: Cigarettes Hx Substance Use: No Preferred Language: Slovenian Communication Ability: Effective Record Systems Analyst Required: No Beliefs That Will Affect Care: None Current Living Situation: Spouse Feels Safe at Home: Yes Assistive Devices: None Allergies Allergies Allergy/AdvReac Type Severity Reaction Status Date / Time Penicillins Allergy Intermediate HIVES- 50 Verified 07/09/21 22:58 YEARS AGO. Home Meds Home Medications Medication Instructions Recorded Confirmed omeprazole 20 mg capsule,delayed 20 mg PO BID 07/09/21 01/22/24 release albuterol sulfate 90 mcg/actuation 2 puff inhalation Q4 PRN wheeze 06/04/23 01/22/24 aerosol inhaler calcium carbonate 600 mg-vitamin 4 tab PO DAILY 06/04/23 01/22/24 D3 10 mcg (400 unit) tablet levothyroxine 100 mcg tablet 100 mcg PO DAILYBB 06/04/23 01/22/24 montelukast 10 mg tablet 10 mg PO QAM 06/04/23 01/22/24 tiotropium bromide 18 mcg capsule 1 cap inhalation QAM 06/04/23 01/22/24 with inhalation device (Spiriva with HandiHaler) tizanidine 4 mg tablet 4 mg PO Q6 PRN Muscle Spasm 06/04/23 01/22/24 fluticasone furoate 100 1 inh inhalation QAM 01/22/24 01/22/24 mcg-vilanterol 25 mcg/dose inhalation powder (Breo Ellipta) varenicline 1 mg tablet 1 mg PO DIRECTED 01/22/24 01/22/24 Results & Data (ED) Vital Signs Vital Signs - 24 hr 01/22/24 09:08 01/22/24 09:19 01/22/24 09:30 Temperature 36.9 C Temperature Source Temporal Artery Scan Pulse Rate 137 H 84 87 Pulse Rate [Right Finger] Pulse Rhythm Regular Pulse Rhythm [Right Finger] Pulse Strength [Right Finger] Respiratory Rate 18 20 Respiratory Effort / Characteristics Respiratory Depth Respiratory Pattern Blood Pressure 100/55 L Blood Pressure [Right Arm] Blood Pressure Mean 70 Blood Pressure Mean [Right Arm] Blood Pressure Position Sitting Blood Pressure Position [Right Arm] Pulse Oximetry 99 90 Oxygen Delivery Method Room Air Room Air Oxygen Flow Rate Sepsis Recent Fever Within 48 Hours No Sepsis New/Unexplained Change in Mental Status N/A Sepsis Action Taken by Nursing No Action Required 01/22/24 10:15 01/22/24 10:29 01/22/24 12:00 Temperature Temperature Source Pulse Rate Pulse Rate [Right Finger] 88 Pulse Rhythm Pulse Rhythm [Right Finger] Regular Pulse Strength [Right Finger] Normal Respiratory Rate 22 20 Respiratory Effort / Characteristics Non-Labored Spontaneous Non-Labored Spontaneous Respiratory Depth Normal Normal Respiratory Pattern Regular Regular Blood Pressure Blood Pressure [Right Arm] 111/54 L Blood Pressure Mean Blood Pressure Mean [Right Arm] 73 Blood Pressure Position Blood Pressure Position [Right Arm] Sitting Pulse Oximetry 84 L 92 86 L Oxygen Delivery Method Room Air Nasal Cannula Nasal Cannula Oxygen Flow Rate 2 Sepsis Recent Fever Within 48 Hours Sepsis New/Unexplained Change in Mental Status Sepsis Action Taken by Nursing 01/22/24 12:13 Temperature Temperature Source Pulse Rate Pulse Rate [Right Finger] 85 Pulse Rhythm Pulse Rhythm [Right Finger] Pulse Strength [Right Finger] Respiratory Rate 22 Respiratory Effort / Characteristics Respiratory Depth Respiratory Pattern Blood Pressure Blood Pressure [Right Arm] 93/52 L Blood Pressure Mean Blood Pressure Mean [Right Arm] 65 Blood Pressure Position Blood Pressure Position [Right Arm] Pulse Oximetry 86 L Oxygen Delivery Method Room Air Oxygen Flow Rate Sepsis Recent Fever Within 48 Hours Sepsis New/Unexplained Change in Mental Status Sepsis Action Taken by [facility] Medications Current Medication List: was personally reviewed by me Laboratory Data Attestation: I reviewed the patient's lab results. 01/22/24 09:30 01/22/24 09:30 Lab Results 01/22/24 01/22/24 Range/Units 09:30 10:27 WBC 16.17 H (4.8-10.8) K/ul RBC 4.48 (4.20-5.40) M/uL Hgb 13.4 (12.0-16.0) g/dl Hct 41.9 (37.0-47.0) % MCV 93.5 (80.0-100.0) fL MCH 29.9 (25.0-34.0) pg MCHC 32.0 (32.0-36.0) g/dL RDW Std Deviation 43.6 (36.4-46.3) fL RDW Coeff of Ada 12.6 (11.5-14.5) % Plt Count 367 (130-400) K/uL MPV 9.8 (9.4-12.4) fL Immature Gran % (Auto) 0.9 % Neut % (Auto) 61.8 % Lymph % (Auto) 20.0 % Hamlin % (Auto) 15.4 % Eos % (Auto) 1.5 % Baso % (Auto) 0.4 % Neut # (Auto) 9.99 H (1.40-6.50) K/uL Lymph # (Auto) 3.23 (1.20-3.40) K/uL Hamlin # (Auto) 2.49 H (0.11-0.59) K/uL Eos # (Auto) 0.25 (0.00-0.50) K/uL Baso # (Auto) 0.07 (0.00-0.20) K/uL Immature Gran # (Auto) 0.14 (0.01-0.20) K/uL Polychromasia 1+ PT 10.4 (9.0-12.0) Seconds INR 1.0 (0.9-1.1) APTT 26 (21-31) Seconds PTT Ratio 1.0 Sodium 133 L (136-145) mmol/L Potassium 3.7 (3.5-5.1) mmol/L Chloride 95 L (98-107) mmol/L Carbon Dioxide 28 (21-32) mmol/L Anion Gap 10 (3-11) BUN 22 (6-23) mg/dl Creatinine 1.01 (0.6-1.2) mg/dl Est Cr Clr Drug Dosing 31.6 ml/min Est GFR ( Amer) 64.4 ml/min Est GFR (Non-Af Amer) 55.6 ml/min BUN/Creatinine Ratio 21.8 H (10-20) Glucose 91 (70-99(Fasting)) mg/dl Calcium 9.3 (8.6-10.3) mg/dl Magnesium 1.5 L (1.7-2.4) mg/dl Total Bilirubin 0.5 (0.2-1.0) mg/dl AST 36 (13-39) U/L ALT 31 (7-52) U/L Alkaline Phosphatase 109 H (34-104) U/L Troponin I High Sens 5.9 (0-14) pg/ml Total Protein 7.9 (6.0-8.3) gm/dl Albumin 4.1 (3.4-5.0) gm/dl Globulin 3.8 (2.5-4.0) gm/dl Albumin/Globulin Ratio 1.1 (0.9-2) Adenovirus (PCR) Not Detected (NotDetected) B. pertussis DNA (PCR) Not Detected (NotDetected) B.parapertussis DNA PCR Not Detected (NotDetected) C. pneumoniae DNA (PCR) Not Detected (NotDetected) Coronavirus OC43 (PCR) Not Detected (NotDetected) Coronavirus HKU1 (PCR) Not Detected (NotDetected) Coronavirus 229E (PCR) Not Detected (NotDetected) SARS-CoV-2 (PCR) Not Detected (NotDetected) Coronavirus NL63 (PCR) Not Detected (NotDetected) Human Metapneumovir PCR Not Detected (NotDetected) Influenza Type A (PCR) Not Detected (NotDetected) Influenza Type B (PCR) Not Detected (NotDetected) M. pneumoniae (PCR) Not Detected (NotDetected) Parainfluenza 1 (PCR) Not Detected (NotDetected) Parainfluenza 2 (PCR) Not Detected (NotDetected) Parainfluenza 3 (PCR) Not Detected (NotDetected) Parainfluenza 4 (PCR) Not Detected (NotDetected) RSV (PCR) Not Detected (NotDetected) Entero/Rhino (PCR) Not Detected (NotDetected) Administered Medications Discontinued Medications Albuterol (Albut/Ipratrop 3mg/0.5mg Neb 3 Ml Vial) 3 ml INH NOW STA Stop: 01/22/24 09:20 Last Admin: 01/22/24 09:37 Dose: 3 ml Documented By: PATRICK Azithromycin (Azithromycin 250 Mg Tab) 500 mg PO NOW ONE Stop: 01/22/24 09:20 Last Admin: 01/22/24 09:37 Dose: 500 mg Documented By: PATRICK Sodium Chloride (Nss) 1,000 mls @ 999 mls/hr IV .Q1H1M EBONI Stop: 01/22/24 10:30 Last Infusion: 01/22/24 10:58 Dose: Infused Documented By: Admin: 01/22/24 09:34 Dose: 999 mls/hr Documented By: PATRICK Magnesium Sulfate/Dextrose (Magnesium Sulfate / D5w) 1 gm in 100 mls @ 100 mls/hr IV NOW STA Stop: 01/22/24 11:39 Last Infusion: 01/22/24 12:12 Dose: Infused Documented By: Admin: 01/22/24 10:52 Dose: 100 mls/hr Documented By: SUZETTE Sodium Chloride (Nss) 500 mls @ 999 mls/hr IV .Q31M ONE Stop: 01/22/24 11:10 Last Infusion: 01/22/24 11:20 Dose: Infused Documented By: Admin: 01/22/24 10:46 Dose: 999 mls/hr Documented By: JAYA Ceftriaxone Sodium (Rocephin) 2,000 mg in 50 mls @ 100 mls/hr IV NOW STA Stop: 01/22/24 12:05 Last Infusion: 01/22/24 12:35 Dose: Infused Documented By: Admin: 01/22/24 12:02 Dose: 100 mls/hr Documented By: AMEYA Ioversol (Optiray 320 125ml) 119 ml IV ONCE ONE Stop: 01/22/24 11:23 Last Admin: 01/22/24 11:22 Dose: 119 ml Documented By: ASHLEY Methylprednisolone (Methylprednisolone 125 Mg/2 Ml Vial) 60 mg IV NOW STA Stop: 01/22/24 09:20 Last Admin: 01/22/24 09:37 Dose: 60 mg Documented By: PATRICK Imaging Data Radiologist's Impression: Chest X-Ray 01/22/24 09:19 XR chest 1V portable CLINICAL HISTORY: Dyspnea TECHNIQUE: Single frontal radiograph of the chest was obtained. Comparison: Comparison is made to chest radiograph 08/19/2023 FINDINGS: No lines and tubes are seen. The cardiomediastinal silhouette is normal. The lungs are clear. No evidence of pleural effusion or pneumothorax. IMPRESSION: No acute abnormalities and in particular no radiographic evidence of pneumonia. ACT 112: Negative or not required by law. Electronically signed by: Luca Atkinson M.D. 01/22/2024 9:57 AM Chest CTA 01/22/24 10:40 CT angio chest PE protocol CLINICAL HISTORY: PE TECHNIQUE: Multidetector row helical CT of the chest was performed with angiographic protocol. Coronal and sagittal reformations were obtained. Coronal and sagittal MIPS were obtained from the axial data set and were submitted for review. Automated dose lowering techniques and/or adjustment according to patient size were utilized for this exam. CT DOSE: 317.04 mGy.cm Comparison: Comparison is made to CT chest 05/25/2023 FINDINGS: Lungs and pleura: Bronchial wall thickening and atelectasis are seen. Emphysema is noted. Heart and pericardium: Heart size is normal. No pericardial effusion. Vessels: No evidence of pulmonary embolism. Mediastinum and pascale: Unremarkable. Chest wall and lower neck: Unremarkable. Abdomen: Patient is status post cholecystectomy. Diverticulosis is seen without diverticulitis. Bones: Unremarkable. IMPRESSION: 1. No acute abnormality and in particular no evidence of pulmonary embolus. 2. Emphysema. 3. Bronchial wall thickening may represent infectious/inflammatory process. ACT 112: Negative or not required by law. Electronically signed by: Luca Atkinson M.D. 01/22/2024 11:43 AM Discharge Plan Visit Data Chief Complaint: Illness Stated Complaint: DEHYDRATED, COLD SYMPTOMS ED Provider: Walker Mitchell Discharge Problem: Hypoxia, SOB (shortness of breath), Pneumonia, Leukocytosis, COPD exacerbation, Hypomagnesemia Patient Disposition: Admitted As Inpatient Condition: Fair Discharge Instructions Interventions: ED Discharge Assessment Last Done: 01/22/24 14:57 Discharge Problem: Pneumonia Qualifiers: Pneumonia type: due to unspecified organism Laterality: left Lung location: l ower lobe of lung Qualified Code(s): J18.9 - Pneumonia, unspecified organism Leukocytosis Qualifiers: Leukocytosis type: unspecified Qualified Code(s): D72.829 - Elevated white blood cell count, unspecified
[2024-01-22] MEDS: AZITHROMYCIN 250 MG TAB PO ONE (09:37)
[2024-01-22] MEDS: methylPREDNISolone 125 MG/2 ML VIAL IV STA (09:37)
[2024-01-22] MEDS: ALBUT/IPRATROP 3MG/0.5MG NEB 3 ML VIAL INH STA (09:37)
--- NOTE | 2024-01-22 09:58 | XRay Report ---
XR chest 1V portable CLINICAL HISTORY: Dyspnea TECHNIQUE: Single frontal radiograph of the chest was obtained. Comparison: Comparison is made to chest radiograph 08/19/2023 FINDINGS: No lines and tubes are seen. The cardiomediastinal silhouette is normal. The lungs are clear. No evid ence of pleural effusion or pneumothorax. IMPRESSION: No acute abnormalities and in particular no radiographic evidence of pneumonia. ACT 112: Negative or not required by law. Electronically signed by: Luca Atkinson M.D. 01/22/2024 9:57 AM
[2024-01-22 10:04] LABS: Hematocrit (blood only) 41.9 % (37.0-47.0); Hemoglobin 13.4 g/dl (12.0-16.0); Mean Corpuscular Hemoglobin 29.9 pg (25.0-34.0); Mean Corpuscular Volume 93.5 fL (80.0-100.0); Mean Platelet Volume 9.8 fL (9.4-12.4); Platelet Count 367 K/uL (130-400); RDW Coefficient of Variation 12.6 % (11.5-14.5); RDW Standard Deviation 43.6 fL (36.4-46.3); Red Blood Count 4.48 M/uL (4.20-5.40); White Blood Count 16.17 K/ul (4.8-10.8)
[2024-01-22 10:23] LABS: Albumin Globulin Ratio 1.1 (0.9-2); Albumin Level 4.1 gm/dl (3.4-5.0); BUN Creatinine Ratio 21.8 (10-20); Bilirubin,Total 0.5 mg/dl (0.2-1.0); Calcium 9.3 mg/dl (8.6-10.3); Creatinine Clr Calc Pharmacy 31.6 ml/min; Est GFR (African American) 64.4 ml/min; Est GFR (Non-African American) 55.6 ml/min; Globulin 3.8 gm/dl (2.5-4.0); Magnesium 1.5 mg/dl (1.7-2.4); Potassium 3.7 mmol/L (3.5-5.1); Total Protein 7.9 gm/dl (6.0-8.3)
[2024-01-22 10:24] LABS: Basophils # (auto) 0.07 K/uL (0.00-0.20); Basophils % (auto) 0.4 %; Eosinophils # (auto) 0.25 K/uL (0.00-0.50); Eosinophils % (auto) 1.5 %; Immature Granulocytes # (auto) 0.14 K/uL (0.01-0.20); Immature Granulocytes % (auto) 0.9 %; Lymphocytes # (auto) 3.23 K/uL (1.20-3.40); Monocytes # (auto) 2.49 K/uL (0.11-0.59); Monocytes % (auto) 15.4 %; Neutrophils # (auto) 9.99 K/uL (1.40-6.50); Neutrophils % (auto) 61.8 %; Polychromasia 1+
[2024-01-22 10:26] LABS: Partial Thromboplastin Time 26 Seconds (21-31); Prothrombin Time 10.4 Seconds (9.0-12.0)
[2024-01-22 10:28] LABS: Troponin I High Sensitivity 5.9 pg/ml (0-14)
[2024-01-22] MEDS: SODIUM CHLORIDE 0.9% 500 ML IV ONE (10:46)
[2024-01-22] MEDS: MAGNESIUM SULFATE / D5W 1 GM/100 ML BAG IV STA (10:52)
[2024-01-22] MEDS: OPTIRAY 320 125ml IV ONE (11:22)
[2024-01-22 11:32] LABS: Adenovirus PCR Not Detected (NotDetected); Bordetella parapertussis PCR Not Detected (NotDetected); Bordetella pertussis PCR Not Detected (NotDetected); Chlamydia pneumoniae PCR Not Detected (NotDetected); Coronavirus 229E PCR Not Detected (NotDetected); Coronavirus CoV-2 (COVID19)PCR Not Detected (NotDetected); Coronavirus HKU1 PCR Not Detected (NotDetected); Coronavirus NL63 PCR Not Detected (NotDetected); Coronavirus OC43PCR Not Detected (NotDetected); Human Metapneumovirus PCR Not Detected (NotDetected); Influenza A PCR Not Detected (NotDetected); Influenza B PCR Not Detected (NotDetected); Mycoplasma pneumoniae PCR Not Detected (NotDetected); Parainfluenza Virus 1 PCR Not Detected (NotDetected); Parainfluenza Virus 2 PCR Not Detected (NotDetected); Parainfluenza Virus 3 PCR Not Detected (NotDetected); Parainfluenza Virus 4 PCR Not Detected (NotDetected); Respiratory Syncytial VirusPCR Not Detected (NotDetected); Rhinovirus/Enterovirus PCR Not Detected (NotDetected)
--- NOTE | 2024-01-22 11:45 | CT Scan Report ---
CT angio chest PE protocol CLINICAL HISTORY: PE TECHNIQUE: Multidetector row helical CT of the chest was performed with angiographic protocol. Verduzco l and sagittal reformations were obtained. Coronal and sagittal MIPS were obtained from the axial truman a set and were submitted for review. Automated dose lowering techniques and/or adjustment according to patient size were utilized for this exam. CT DOSE: 317.04 mGy.cm Comparison: Comparison is made to CT chest 05/25/2023 FINDINGS: Lungs and pleura: Bronchial wall thickening and atelectasis are seen. Emphysema is noted. Heart and pericardium: Heart size is normal. No pericardial effusion. Vessels: No evidence of pulmonary embolism. Mediastinum and pascale: Unremarkable. Chest wall and lower neck: Unremarkable. Abdomen: Patient is status post cholecystectomy. Diverticulosis is seen without diverticulitis. Bones: Unremarkable. IMPRESSION: 1. No acute abnormality and in particular no evidence of pulmonary embolus. 2. Emphysema. 3. Bronchial wall thickening may represent infectious/inflammatory process. ACT 112: Negative or not required by law. Electronically signed by: Luca Atkinson M.D. 01/22/2024 11:43 AM
[2024-01-22] MEDS: cefTRIAXone SODIUM 2,000 MG/50 ML BAG IV STA (12:02)
--- NOTE | 2024-01-22 12:41 | History & Physical Report ---
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 Home Medications Medication Instructions Recorded Confirmed Type omeprazole 20 mg capsule,delayed 20 mg PO BID 07/09/21 01/22/24 History release albuterol sulfate 90 mcg/actuation 2 puff inhalation Q4 PRN wheeze 06/04/23 01/22/24 History aerosol inhaler calcium carbonate 600 mg-vitamin 4 tab PO DAILY 06/04/23 01/22/24 History D3 10 mcg (400 unit) tablet levothyroxine 100 mcg tablet 100 mcg PO DAILYBB 06/04/23 01/22/24 History montelukast 10 mg tablet 10 mg PO QAM 06/04/23 01/22/24 History tiotropium bromide 18 mcg capsule 1 cap inhalation QAM 06/04/23 01/22/24 History with inhalation device (Spiriva with HandiHaler) tizanidine 4 mg tablet 4 mg PO Q6 PRN Muscle Spasm 06/04/23 01/22/24 History fluticasone furoate 100 1 inh inhalation QAM 01/22/24 01/22/24 History mcg-vilanterol 25 mcg/dose inhalation powder (Breo Ellipta) varenicline 1 mg tablet 1 mg PO DIRECTED 01/22/24 01/22/24 History Past Med/Surg History Problem List (Updated 01/22/24 @ 12:29 by Shabnam Izquierdo PA-C) Prediabetes Chronic myofascial pain Celiac disease Acquired hypothyroidism COPD (chronic obstructive pulmonary disease) Acute bronchitis due to Rhinovirus (Acute) Acute exacerbation of chronic obstructive airways disease (Acute) Medical History (Updated 01/22/24 @ 12:29 by Shabnam Izquierdo PA-C) Osteoporosis Ulnar neuropathy of both upper extremities Acute hypoxemic respiratory failure Hypoxemia Social History (Reviewed 08/20/23 @ 04:25 by MARLEN Polanco Smoking Status: Current every day smoker Tobacco Type: Cigarettes Hx Substance Use: No Preferred Language: Kyrgyz Communication Ability: Effective 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 Beliefs That Will Affect Care: None Current Living Situation: Spouse Feels Safe at Home: Yes Assistive Devices: None Results & Data Results & Data Vital Signs (Past 12 Hours) Vital Signs Temp Pulse Pulse Resp BP BP Pulse Ox 01/22/24 12:13 85 22 93/52 L 86 L 01/22/24 12:00 20 86 L 01/22/24 10:29 92 01/22/24 10:15 88 22 111/54 L 84 L 01/22/24 09:30 87 01/22/24 09:19 84 20 90 01/22/24 09:08 36.9 C 137 H 18 100/55 L 99 O2 Del Method O2 Flow Rate 01/22/24 12:13 Room Air 01/22/24 12:00 Nasal Cannula 01/22/24 10:29 Nasal Cannula 2 01/22/24 10:15 Room Air 01/22/24 09:30 01/22/24 09:19 Room Air 01/22/24 09:08 Room Air Laboratory Results Lab Results 01/22/24 01/22/24 Range/Units 09:30 10:27 WBC 16.17 H (4.8-10.8) K/ul RBC 4.48 (4.20-5.40) M/uL Hgb 13.4 (12.0-16.0) g/dl Hct 41.9 (37.0-47.0) % MCV 93.5 (80.0-100.0) fL MCH 29.9 (25.0-34.0) pg MCHC 32.0 (32.0-36.0) g/dL RDW Std Deviation 43.6 (36.4-46.3) fL RDW Coeff of Ada 12.6 (11.5-14.5) % Plt Count 367 (130-400) K/uL MPV 9.8 (9.4-12.4) fL Immature Gran % (Auto) 0.9 % Neut % (Auto) 61.8 % Lymph % (Auto) 20.0 % [place]away % (Auto) 15.4 % Eos % (Auto) 1.5 % Baso % (Auto) 0.4 % Neut # (Auto) 9.99 H (1.40-6.50) K/uL Lymph # (Auto) 3.23 (1.20-3.40) K/uL Callaway # (Auto) 2.49 H (0.11-0.59) K/uL Eos # (Auto) 0.25 (0.00-0.50) K/uL Baso # (Auto) 0.07 (0.00-0.20) K/uL Immature Gran # (Auto) 0.14 (0.01-0.20) K/uL Polychromasia 1+ PT 10.4 (9.0-12.0) Seconds INR 1.0 (0.9-1.1) APTT 26 (21-31) Seconds PTT Ratio 1.0 Sodium 133 L (136-145) mmol/L Potassium 3.7 (3.5-5.1) mmol/L Chloride 95 L (98-107) mmol/L Carbon Dioxide 28 (21-32) mmol/L Anion Gap 10 (3-11) BUN 22 (6-23) mg/dl Creatinine 1.01 (0.6-1.2) mg/dl Est Cr Clr Drug Dosing 31.6 ml/min Est GFR ( Amer) 64.4 ml/min Est GFR (Non-Af Amer) 55.6 ml/min BUN/Creatinine Ratio 21.8 H (10-20) Glucose 91 (70-99(Fasting)) mg/dl Calcium 9.3 (8.6-10.3) mg/dl Magnesium 1.5 L (1.7-2.4) mg/dl Total Bilirubin 0.5 (0.2-1.0) mg/dl AST 36 (13-39) U/L ALT 31 (7-52) U/L Alkaline Phosphatase 109 H (34-104) U/L Troponin I High Sens 5.9 (0-14) pg/ml Total Protein 7.9 (6.0-8.3) gm/dl Albumin 4.1 (3.4-5.0) gm/dl Globulin 3.8 (2.5-4.0) gm/dl Albumin/Globulin Ratio 1.1 (0.9-2) Adenovirus (PCR) Not Detected (NotDetected) B. pertussis DNA (PCR) Not Detected (NotDetected) B.parapertussis DNA PCR Not Detected (NotDetected) C. pneumoniae DNA (PCR) Not Detected (NotDetected) Coronavirus OC43 (PCR) Not Detected (NotDetected) Coronavirus HKU1 (PCR) Not Detected (NotDetected) Coronavirus 229E (PCR) Not Detected (NotDetected) SARS-CoV-2 (PCR) Not Detected (NotDetected) Coronavirus NL63 (PCR) Not Detected (NotDetected) Human Metapneumovir PCR Not Detected (NotDetected) Influenza Type A (PCR) Not Detected (NotDetected) Influenza Type B (PCR) Not Detected (NotDetected) M. pneumoniae (PCR) Not Detected (NotDetected) Parainfluenza 1 (PCR) Not Detected (NotDetected) Parainfluenza 2 (PCR) Not Detected (NotDetected) Parainfluenza 3 (PCR) Not Detected (NotDetected) Parainfluenza 4 (PCR) Not Detected (NotDetected) RSV (PCR) Not Detected (NotDetected) Entero/Rhino (PCR) Not Detected (NotDetected) Diagnostic Findings Chest X-Ray 01/22/24 09:19 XR chest 1V portable CLINICAL HISTORY: Dyspnea TECHNIQUE: Single frontal radiograph of the chest was obtained. Comparison: Comparison is made to chest radiograph 08/19/2023 FINDINGS: No lines and tubes are seen. The cardiomediastinal silhouette is normal. The lungs are clear. No evidence of pleural effusion or pneumothorax. IMPRESSION: No acute abnormalities and in particular no radiographic evidence of pneumonia. ACT 112: Negative or not required by law. Electronically signed by: Luca Atkinson M.D. 01/22/2024 9:57 AM Chest CTA 01/22/24 10:40 CT angio chest PE protocol CLINICAL HISTORY: PE TECHNIQUE: Multidetector row helical CT of the chest was performed with a ngiographic protocol. Coronal and sagittal reformations were obtained. Coronal and sagittal MIPS were obtained from the axial data set and were submitted for review. Automated dose lowering techniques and/or adjustment according to patient size were utilized for this exam. CT DOSE: 317.04 mGy.cm Comparison: Comparison is made to CT chest 05/25/2023 FINDINGS: Lungs and pleura: Bronchial wall thickening and atelectasis are seen. Emphysema is noted. Heart and pericardium: Heart size is normal. No pericardial effusion. Vessels: No evidence of pulmonary embolism. Mediastinum and pascale: Unremarkable. Chest wall and lower neck: Unremarkable. Abdomen: Patient is status post cholecystectomy. Diverticulosis is seen without diverticulitis. Bones: Unremarkable. IMPRESSION: 1. No acute abnormality and in particular no evidence of pulmonary embolus. 2. Emphysema. 3. Bronchial wall thickening may represent infectious/inflammatory process. ACT 112: Negative or not required by law. Electronically signed by: Luca Atkinson M.D. 01/22/2024 11:43 AM Medications Administered Discontinued Medications Albuterol (Albut/Ipratrop 3mg/0.5mg Neb 3 Ml Vial) 3 ml INH NOW STA Stop: 01/22/24 09:20 Last Admin: 01/22/24 09:37 Dose: 3 ml Documented By: PATRICK Azithromycin (Azithromycin 250 Mg Tab) 500 mg PO NOW ONE Stop: 01/22/24 09:20 Last Admin: 01/22/24 09:37 Dose: 500 mg Documented By: PATRICK Sodium Chloride (Nss) 1,000 mls @ 999 mls/hr IV .Q1H1M EBONI Stop: 01/22/24 10:30 Last Infusion: 01/22/24 10:58 Dose: Infused Documented By: Admin: 01/22/24 09:34 Dose: 999 mls/hr Documented By: PATRICK Magnesium Sulfate/Dextrose (Magnesium Sulfate / D5w) 1 gm in 100 mls @ 100 mls/hr IV NOW STA Stop: 01/22/24 11:39 Last Infusion: 01/22/24 12:12 Dose: Infused Documented By: Admin: 01/22/24 10:52 Dose: 100 mls/hr Documented By: SUZETTE Sodium Chloride (Nss) 500 mls @ 999 mls/hr IV .Q31M ONE Stop: 01/22/24 11:10 Last Infusion: 01/22/24 11:20 Dose: Infused Documented By: Admin: 01/22/24 10:46 Dose: 999 mls/hr Documented By: JAYA Ceftriaxone Sodium (Rocephin) 2,000 mg in 50 mls @ 100 mls/hr IV NOW STA Stop: 01/22/24 12:05 Last Infusion: 01/22/24 12:35 Dose: Infused Documented By: Admin: 01/22/24 12:02 Dose: 100 mls/hr Documented By: AMEYA Ioversol (Optiray 320 125ml) 119 ml IV ONCE ONE Stop: 01/22/24 11:23 Last Admin: 01/22/24 11:22 Dose: 119 ml Documented By: ASHLEY Methylprednisolone (Methylprednisolone 125 Mg/2 Ml Vial) 60 mg IV NOW STA Stop: 01/22/24 09:20 Last Admin: 01/22/24 09:37 Dose: 60 mg Documented By: PATRICK
--- NOTE | 2024-01-22 12:44 | History & Physical Report ---
Date of Service January 22, 2024 Assessment & Plan (1) Acute exacerbation of chronic obstructive airways disease: Plan: Has COPD with emphysema with ongoing smoking Increasing shortness of breath with productive cough for the last 1 week No pulmonary embolism on CAT scan but has left lower lobe infiltration Received intravenous Solu-Medrol and will be continued Nebulized bronchodilator And monitoring medical telemetry unit (2) Left lower lobe pneumonia: Plan: CT showed left lower lobe infiltration pneumonitis/pneumonia Started on oral azithromycin and IV ceftriaxone which will be continued Will get a sputum and blood culture (3) Chronic myofascial pain: Plan: Seems to be stable (4) Prediabetes: Plan: Will monitor blood sugar And check hemoglobin A1c (5) Acquired hypothyroidism: Plan: Continue replacement (6) Celiac disease: Plan: No acute issues DVT prophylaxis Subcu heparin CODE STATUS Full History of Present Illness Chief Complaint: Increasing shortness of breath and cough with phlegm for the last 1 week Primary Care Provider: Lindsey Cantu MD She is a 73-year-old female with significant past medical history of COPD, prediabetes, hypothyroidism, GERD, history of celiac disease, chronic myofascial pain, osteoporosis and ongoing tobacco abuse apparently has been complaining of increasing shortness of breath and wheezing for the last 1 week. She also has productive phlegm which is whitish-yellow color but denies any fever and or chills. Does not have any chest pain and or palpitation. Denies any abdominal pain, nausea and or vomiting. No problem with urination or bowel habit. Oxygen saturation was noted to be low at 86 on room air and the CT of the chest did not show any pulmonary embolism but may have left lower lobe pneumonia. She was started with intravenous antibiotic and also Solu-Medrol and bronchodilators and was admitted to medical telemetry unit for continuation of care. Allergies Allergy/AdvReac Type Severity Reaction Status Date / Time Penicillins Allergy Intermediate HIVES- 50 Verified 07/09/21 22:58 YEARS AGO. Home Medications Medication Instructions Recorded Confirmed Type omeprazole 20 mg capsule,delayed 20 mg PO BID 07/09/21 01/22/24 History release albuterol sulfate 90 mcg/actuation 2 puff inhalation Q4 PRN wheeze 06/04/23 01/22/24 History aerosol inhaler calcium carbonate 600 mg-vitamin 4 tab PO DAILY 06/04/23 01/22/24 History D3 10 mcg (400 unit) tablet levothyroxine 100 mcg tablet 100 mcg PO DAILYBB 06/04/23 01/22/24 History montelukast 10 mg tablet 10 mg PO QAM 06/04/23 01/22/24 History tiotropium bromide 18 mcg capsule 1 cap inhalation QAM 06/04/23 01/22/24 History with inhalation device (Spiriva with HandiHaler) tizanidine 4 mg tablet 4 mg PO Q6 PRN Muscle Spasm 06/04/23 01/22/24 History fluticasone furoate 100 1 inh inhalation QAM 01/22/24 01/22/24 History mcg-vilanterol 25 mcg/dose inhalation powder (Breo Ellipta) varenicline 1 mg tablet 1 mg PO DIRECTED 01/22/24 01/22/24 History Past Med/Surg History Problem List (Updated 01/22/24 @ 12:41 by Franki Young MD) Left lower lobe pneumonia Prediabetes Chronic myofascial pain Celiac disease Acquired hypothyroidism COPD (chronic obstructive pulmonary disease) Acute bronchitis due to Rhinovirus (Acute) Acute exacerbation of chronic obstructive airways disease (Acute) Medical History (Updated 01/22/24 @ 12:41 by Franki Yougn MD) Osteoporosis Ulnar neuropathy of both upper extremities Acute hypoxemic respiratory failure Hypoxemia Social History Smoking Status: Current every day smoker Tobacco Type: Cigarettes Hx Substance Use: No Preferred Language: Cameroonian Communication Ability: 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 Beliefs That Will Affect Care: None Current Living Situation: Spouse Feels Safe at Home: Yes Assistive Devices: None Review of Systems Review of Systems: All systems reviewed and are unremarkable except as noted below Physical Exam Physical Exam: Lying in bed without any acute distress Constitutional: + ill appearing and + thin Eyes: PERRL, conjunctivae normal, anicteric sclerae ENMT: external ear and nose normal, oropharynx normal Neck: trachea midline, no thyromegaly Respiratory: + respiratory distress (Mild to moderate respiratory distress at rest) Auscultation: + diminished lung sounds and + crackles (Crackles mostly at the left base) Cardiovascular: Rate/Rhythm: regular rate and regular rhythm; not tachycardic Heart Sounds: normal S1 and normal S2; no murmur Extremities: no edema Gastrointestinal (Abdomen): Inspection/Auscultation: normal bowel sounds; abdomen not distended Percussion/Palpation: abdomen soft; abdomen nontender Musculoskeletal: No acute arthritis involving any of the joints Neurologic: normal touch/pain/proprioception and moves all extremities; no focal motor deficits Lymphatic: no cervical or axillary lymphadenopathy Results & Data Results & Data Vital Signs (Past 12 Hours) Vital Signs Temp Pulse Pulse Resp BP BP Pulse Ox 01/22/24 12:13 85 22 93/52 L 86 L 01/22/24 12:00 20 86 L 01/22/24 10:29 92 01/22/24 10:15 88 22 111/54 L 84 L 01/22/24 09:30 87 01/22/24 09:19 84 20 90 01/22/24 09:08 36.9 C 137 H 18 100/55 L 99 O2 Del Method O2 Flow Rate 01/22/24 12:13 Room Air 01/22/24 12:00 Nasal Cannula 01/22/24 10:29 Nasal Cannula 2 01/22/24 10:15 Room Air 01/22/24 09:30 01/22/24 09:19 Room Air 01/22/24 09:08 Room Air Laboratory Results Short CBC 01/22/24 Range/Units 09:30 WBC 16.17 H (4.8-10.8) K/ul Hgb 13.4 (12.0-16.0) g/dl Hct 41.9 (37.0-47.0) % Plt Count 367 (130-400) K/uL BMP 01/22/24 09:30 Sodium 133 L Potassium 3.7 Chloride 95 L Carbon Dioxide 28 BUN 22 Creatinine 1.01 Glucose 91 Calcium 9.3 Liver Function 01/22/24 Range/Units 09:30 Total Bilirubin 0.5 (0.2-1.0) mg/dl AST 36 (13-39) U/L ALT 31 (7-52) U/L Alkaline Phosphatase 109 H (34-104) U/L Albumin 4.1 (3.4-5.0) gm/dl
[2024-01-22] MEDS ORDERED: ACETAMINOPHEN 325 MG TAB PO PRN (14:56)
[2024-01-22] MEDS ORDERED: ALBUT/IPRATROP 3MG/0.5MG NEB 3 ML VIAL NEB PRN (15:01)
[2024-01-22] MEDS: ALBUT/IPRATROP 3MG/0.5MG NEB 3 ML VIAL NEB SCH (15:39)
[2024-01-22] MEDS: methylPREDNISolone 40 MG in SYRINGE 0 ML IV SCH (21:41)
[2024-01-22] MEDS ORDERED: methylPREDNISolone 1000 MG/16 ML IV SCH (22:30)
--- NOTE | 2024-01-23 06:18 | Electrocardiogram Report ---
Test Reason : Blood Pressure : / mmHG Vent. Rate : 086 BPM Atrial Rate : 086 BPM P-R Int : 134 ms QRS Dur : 066 ms QT Int : 340 ms P-R-T Axes : 070 -80 063 degrees QTc Int : 406 ms Normal sinus rhythm Left axis deviation Low voltage QRS Cannot rule out Anterior infarct (cited on or before 04-JUN-2023) Abnormal ECG When compared with ECG of 19-AUG-2023 16:53, QRS axis Shifted left Questionable change in initial forces of Anteroseptal leads Nonspecific T wave abnormality no longer evident in Anterior leads Confirmed by Hao Mcgowan ([id number]) on 01/23/2024 6:18:28 AM Referred By: REFERRED SELF Confirmed By:Hao Mcgowan
[2024-01-23] MEDS: HEPARIN SOD 5,000 UNIT/0.5 ML VIAL SC SCH (08:47)
[2024-01-23] MEDS: AZITHROMYCIN 250 MG TAB PO SCH (08:47)
--- NOTE | 2024-01-23 08:52 | Hospitalist Progress Note ---
Date of Service January 23, 2024 Assessment & Plan (1) Acute exacerbation of chronic obstructive airways disease: Plan: Magalis Archuleta is a 73 y/o F with significant PMHx of COPD, prediabetes, hypothyroidism, GERD, history of celiac disease, chronic myofascial pain, osteoporosis and ongoing tobacco abuse who presented with increasing shortness of breath and wheezing x 1 week and was found to have an acute COPD exacerbation. Pt c/o increasing SOB with productive cough x 1 wk at time of admission. Leukocytosis on admission, WBC 16.17 --> 17.51 today (01/22); RVP was negative. Admitting CXR w/ no acute abnormalities, no evidence of pneumonia. Chest CTA did not show a PE, but did reveal emphysema + bronchial wall thickening [suggestive of infection]. Pt was ultimately started on IV Rocephin and PO azithromycin. Will continue the azithromycin, but stopping Rocephin today. Pt was also started on IV methylprednisolone Q8H; breathing has significantly improved. Stopping IV steroid therapy today; will start pt on PO prednisone 40mg daily. Will need to continue oral prednisone until completion of 5-day course of steroids, which will be for 3 more days (until 01/26). Sputum and blood cultures still pending, will follow and adjust ABX regimen PRN; continue scheduled albuterol nebs. Pt to complete 2-step w/ RT tomorrow AM in preparation for d/c; she plans to quit smoking cigarettes. (2) Chronic myofascial pain: Plan: Chronic, seems to be stable. Pt not c/o of any pain this morning. (3) Prediabetes: Plan: Will check Hgb A1c tomorrow AM. Glucose 137 this AM, pt on steroid therapy. (4) Acquired hypothyroidism: Plan: Continue [employer] levothyroxine. (5) Celiac disease: Plan: No acute issues at this time. DVT Prophylaxis: SQ Heparin Code Status: FULL CODE PCP: Lindsey Cantu MD Disposition: Planning for discharge tomorrow before 12pm if patient remains stable; she will ultimately be discharged to home. Patient seen in collaboration with Dr. Michael. Please see addendum. I spent a total of 40 minutes coordinating, documenting, and providing care for this patient excluding time spent in the performance of separately billed services. This included personally reviewing all current laboratories and imaging studies, medical reconciliation, outpatient chart review and discussion with specialists. This chart was completed in part utilizing Speech Voice Recognition Software. Grammatical errors, random word insertions, pronoun errors, and incomplete sentences are an occasional consequence of this system due to software limitations, ambient noise, and hardware issues. Any formal questions or concerns about the content, text, or information contained within the body of this dictation should be directly addressed to the provider for clarification. Admission and Anticipated Discharge Date Admission Date: January 22, 2024 Supervising Physician Co-Signing Physician Notes Patient seen and examined Reports significant improvement in her respiratory symptoms Reviewed CT chest Change IV solumedrol to po prednisone Continue zithromax. Stop ceftriaxone Off oxygen this morning Monitor. Plan for possible DC tomorrow after 2 step Agree with findings and plan detailed by Advanced Provider and take full responsibility Subjective Patient seen and examined in room W254-1. Patient reports significant improvement in her SOB. Denies any fevers, chills/body aches or chest pain. She is coughing up some phlegm still. States the color is transitioning to be more clear. Mentions she "feels much better than yesterday." States she has been walking around her room without issue. Wants to go home tomorrow if able. Has plans to attend a yard sale with her daughter. Patient plans to quit smoking, wants to avoid needing supplemental oxygen. Review of Systems Review of Systems: At least ten systems reviewed and negative, except as noted in the HPI. Physical Exam Physical Exam: General: NAD, sitting up in bed, conversing appropriately (no conversational dyspnea), very thin. A+Ox3, euthymic affect. HEENT: Normocephalic, atraumatic. Conjunctivae normal, anicteric sclerae. External ear and nose normal, oropharynx normal. Respiratory: Normal respiratory effort, diminished lung sounds, no wheeze. No accessory muscle use, 92% on RA. Cardiovascular: Regular rate, rhythm, no murmur, normal peripheral pulses, no BLE edema. Vessels: No JVD. Abdomen/GI: Normal bowel sounds, soft, nontender, no hepatosplenomegaly. Extremities/Musculoskeletal: No cyanosis or clubbing, extremities motor strength appears intact, moves all extremities. Neurologic: PERRL, EOMI, accommodation nl, no face palsy, no dysarthria, CN's II-XI not formally tested but appear grossly intact bilaterally. Skin: No rashes, normal color, warm/dry. Results & Data Results & Data Vital Signs (Past 12 Hours) Vital Signs Temp Pulse Pulse Resp BP BP Pulse Ox 01/23/24 07:40 36.5 C 82 17 100/55 L 98 01/23/24 07:23 84 L 01/23/24 07:23 01/23/24 06:58 82 16 95 01/23/24 05:30 81 01/23/24 03:36 36.7 C 88 18 139/51 L 97 01/22/24 23:11 36.6 C 96 H 18 99/55 L 90 01/22/24 21:57 98 H 01/22/24 21:30 O2 Del Method O2 Flow Rate 01/23/24 07:40 Room Air 01/23/24 07:23 Room Air, Nasal Cannula 0 01/23/24 07:23 Nasal Cannula 2 01/23/24 06:58 Room Air 01/23/24 05:30 01/23/24 03:36 Nasal Cannula 2 01/22/24 23:11 Nasal Cannula 2 01/22/24 21:57 01/22/24 21:30 Nasal Cannula 2 Laboratory Results Short CBC 01/23/24 Range/Units 08:06 WBC 17.51 H (4.8-10.8) K/ul Hgb 11.5 L (12.0-16.0) g/dl Hct 34.8 L (37.0-47.0) % Plt Count 406 H (130-400) K/uL BMP 01/23/24 08:06 Sodium 138 Potassium 3.9 Chloride 103 Carbon Dioxide 28 BUN 16 Creatinine 0.65 D Glucose 137 H Calcium 9.3 Diagnostic Findings Chest X-Ray 01/22/24 09:19 XR chest 1V portable CLINICAL HISTORY: Dyspnea TECHNIQUE: Single frontal radiograph of the chest was obtained. Comparison: Comparison is made to chest radiograph 08/19/2023 FINDINGS: No lines and tubes are seen. The cardiomediastinal silhouette is normal. The lungs are clear. No evidence of pleural effusion or pneumothorax. IMPRESSION: No acute abnormalities and in particular no radiographic evidence of pneumonia. ACT 112: Negative or not required by law. Electronically signed by: Luca Atkinson M.D. 01/22/2024 9:57 AM Chest CTA 01/22/24 10:40 CT angio chest PE protocol CLINICAL HISTORY: PE TECHNIQUE: Multidetector row helical CT of the chest was performed with angiographic protocol. Coronal and sagittal reformations were obtained. Coronal and sagittal MIPS were obtained from the axial data set and were submitted for review. Automated dose lowering techniques and/or adjustment according to patient size were utilized for this exam. CT DOSE: 317.04 mGy.cm Comparison: Comparison is made to CT chest 05/25/2023 FINDINGS: Lungs and pleura: Bronchial wall thickening and atelectasis are seen. Emphysema is noted. Heart and pericardium: Heart size is normal. No pericardial effusion. Vessels: No evidence of pulmonary embolism. Mediastinum and pascale: Unremarkable. Chest wall and lower neck: Unremarkable. Abdomen: Patient is status post cholecystectomy. Diverticulosis is seen without diverticulitis. Bones: Unremarkable. IMPRESSION: 1. No acute abnormality and in particular no evidence of pulmonary embolus. 2. Emphysema. 3. Bronchial wall thickening may represent infectious/inflammatory process. ACT 112: Negative or not required by law. Electronically signed by: Luca Atkinson M.D. 01/22/2024 11:43 AM Medications Administered Albuterol (Albut/Ipratrop 3mg/0.5mg Neb 3 Ml Vial) [address] [facility]; Protocol Stop: 02/21/24 14:59 Last Admin: 01/23/24 10:16 Dose: 3 ml Documented By: Admin: 01/23/24 06:57 Dose: 3 ml Documented By: Admin: 01/22/24 20:31 Dose: 3 ml Documented By: Admin: 01/22/24 15:39 Dose: 3 ml Documented By: AMEYA Azithromycin (Azithromycin 250 Mg Tab) [facility] [place] Stop: 01/29/24 08:59 Last Admin: 01/23/24 08:47 Dose: 250 mg Documented By: YESSENIA Fluticasone/Vilanterol (Fluticasone/Vilanterol 100/25mcg 14 Puffs/Inhaler) 1 puffs [facility]H [facility] [place] Stop: 02/22/24 08:59 Last Admin: 01/23/24 09:12 Dose: 1 puffs Documented By: YESSENIA Heparin Sodium (Porcine) (Heparin Sod 5,000 Unit/0.5 Ml Vial) 5,000 units SC Q12H EBONI Stop: 02/22/24 08:59 Last Admin: 01/23/24 08:47 Dose: 5,000 units Documented By: YESSENIA Ceftriaxone Sodium (Rocephin) 2,000 mg in 50 mls @ 100 mls/hr IV Q24H EBONI Stop: 01/29/24 11:59 Last Infusion: 01/23/24 11:42 Dose: Infused Documented By: Admin: 01/23/24 11:12 Dose: 100 mls/hr Documented By: YESSENIA Methylprednisolone 40 mg/ (Syringe) 0.64 mls @ 1.5 mls/min IV Q8H EBONI Stop: 02/21/24 21:59 Last Admin: 01/23/24 13:04 Dose: 1.5 mls/min Documented By: Admin: 01/23/24 05:29 Dose: 1.5 mls/min Documented By: Admin: 01/22/24 21:41 Dose: 1.5 mls/min Documented By: DYLON Montelukast Sodium (Montelukast Sodium 10 Mg Tablet) 10 mg PO QAM EBONI Stop: 02/22/24 08:59 Last Admin: 01/23/24 09:12 Dose: 10 mg Documented By: YESSENIA Pantoprazole Sodium (Pantoprazole 40 Mg Tab) 40 mg PO BID EBONI Stop: 02/22/24 08:59 Last Admin: 01/23/24 09:12 Dose: 40 mg Documented By: YESSENIA Umeclidinium [place] (Umeclidinium [place] 62.5mcg/Blister 7 Puffs/Inhaler) 1 puffs INH QAM EBONI Stop: 02/22/24 08:59 Last Admin: 01/23/24 09:12 Dose: 1 puffs Documented By: YESSENIA Discontinued Medications Albuterol (Albut/Ipratrop 3mg/0.5mg Neb 3 Ml Vial) 3 ml INH NOW STA Stop: 01/22/24 09:20 Last Admin: 01/22/24 09:37 Dose: 3 ml Documented By: PATRICK Azithromycin (Azithromycin 250 Mg Tab) 500 mg PO NOW ONE Stop: 01/22/24 09:20 Last Admin: 01/22/24 09:37 Dose: 500 mg Documented By: PATRICK Sodium Chloride (Nss) 1,000 mls @ 999 mls/hr IV .Q1H1M EBONI Stop: 01/22/24 10:30 Last Infusion: 01/22/24 10:58 Dose: Infused Documented By: Admin: 01/22/24 09:34 Dose: 999 mls/hr Documented By: PATRICK Magnesium Sulfate/Dextrose (Magnesium Sulfate / D5w) 1 gm in 100 mls @ 100 mls/hr IV NOW STA Stop: 01/22/24 11:39 Last Infusion: 01/22/24 12:12 Dose: Infused Documented By: Admin: 01/22/24 10:52 Dose: 100 mls/hr Documented By: SUZETTE Sodium Chloride (Nss) 500 mls @ 999 mls/hr IV .Q31M ONE Stop: 01/22/24 11:10 Last Infusion: 01/22/24 11:20 Dose: Infused Documented By: Admin: 01/22/24 10:46 Dose: 999 mls/hr Documented By: JAYA Ceftriaxone Sodium (Rocephin) 2,000 mg in 50 mls @ 100 mls/hr IV NOW STA Stop: 01/22/24 12:05 Last Infusion: 01/22/24 12:35 Dose: Infused Documented By: Admin: 01/22/24 12:02 Dose: 100 mls/hr Documented By: AMEYA Ioversol (Optiray 320 125ml) 119 ml IV ONCE ONE Stop: 01/22/24 11:23 Last Admin: 01/22/24 11:22 Dose: 119 ml Documented By: ASHLEY Methylprednisolone (Methylprednisolone 125 Mg/2 Ml Vial) 60 mg IV NOW STA Stop: 01/22/24 09:20 Last Admin: 01/22/24 09:37 Dose: 60 mg Documented By: PATRICK
[2024-01-23] MEDS ORDERED: ENOXAPARIN INJ 40 MG/0.4 ML SYR SQ SCH (09:00)
[2024-01-23 09:04] LABS: Basophils # (auto) 0.03 K/uL (0.00-0.20); Basophils % (auto) 0.2 %; Hematocrit (blood only) 34.8 % (37.0-47.0); Hemoglobin 11.5 g/dl (12.0-16.0); Immature Granulocytes # (auto) 0.16 K/uL (0.01-0.20); Immature Granulocytes % (auto) 0.9 %; Lymphocytes # (auto) 2.63 K/uL (1.20-3.40); Mean Corpuscular Hemoglobin 30.3 pg (25.0-34.0); Mean Corpuscular Volume 91.8 fL (80.0-100.0); Mean Platelet Volume 9.9 fL (9.4-12.4); Monocytes # (auto) 0.86 K/uL (0.11-0.59); Monocytes % (auto) 4.9 %; Neutrophils # (auto) 13.83 K/uL (1.40-6.50); Platelet Count 406 K/uL (130-400); RDW Coefficient of Variation 12.6 % (11.5-14.5); RDW Standard Deviation 41.9 fL (36.4-46.3); Red Blood Count 3.79 M/uL (4.20-5.40); White Blood Count 17.51 K/ul (4.8-10.8)
[2024-01-23] MEDS: UMECLIDINIUM BROMIDE 62.5MCG/BLISTER 7 PUFFS/INHALER INH SCH (09:12)
[2024-01-23] MEDS: MONTELUKAST SODIUM 10 MG TABLET PO SCH (09:12)
[2024-01-23] MEDS: PANTOprazole 40 MG TAB PO SCH (09:12)
[2024-01-23] MEDS: FLUTICASONE/VILANTEROL 100/25MCG 14 PUFFS/INHALER INH SCH (09:12)
[2024-01-23 09:30] LABS: BUN Creatinine Ratio 24.6 (10-20); Calcium 9.3 mg/dl (8.6-10.3); Creatinine Clr Calc Pharmacy 60.3 ml/min; Est GFR (African American) 102.8 ml/min; Est GFR (Non-African American) 88.7 ml/min; Magnesium 1.7 mg/dl (1.7-2.4); Phosphorus 3.4 mg/dl (2.5-4.9); Potassium 3.9 mmol/L (3.5-5.1)
[2024-01-23] MEDS: cefTRIAXone SODIUM 2,000 MG/50 ML BAG IV SCH (11:12)
[2024-01-24] MEDS: LEVOTHYROXINE SODIUM 100 MCG TABLET PO SCH (05:34)
[2024-01-24 06:44] LABS: Hematocrit (blood only) 34.4 % (37.0-47.0); Mean Corpuscular Hemoglobin 30.1 pg (25.0-34.0); Mean Platelet Volume 9.8 fL (9.4-12.4); Platelet Count 439 K/uL (130-400); RDW Coefficient of Variation 12.9 % (11.5-14.5); RDW Standard Deviation 43.9 fL (36.4-46.3); Red Blood Count 3.66 M/uL (4.20-5.40); White Blood Count 25.09 K/ul (4.8-10.8)
[2024-01-24 06:56] LABS: Estimated Average Glucose 140 mg/dl; Hemoglobin A1C 6.5 % (4.5-5.6)
[2024-01-24 07:12] LABS: BUN Creatinine Ratio 29.6 (10-20); Calcium 8.8 mg/dl (8.6-10.3); Creatinine Clr Calc Pharmacy 50.4 ml/min; Est GFR (African American) 84.1 ml/min; Est GFR (Non-African American) 72.6 ml/min; Potassium 4.2 mmol/L (3.5-5.1)
[2024-01-24] MEDS: predniSONE 20 MG TAB PO SCH (08:05)
--- NOTE | 2024-01-24 11:34 | Discharge Summary ---
Date of Service January 24, 2024 Admission HPI Per Admitting Provider She is a 73-year-old female with significant past medical history of COPD, prediabetes, hypothyroidism, GERD, history of celiac disease, chronic myofascial pain, osteoporosis and ongoing tobacco abuse apparently has been complaining of increasing shortness of breath and wheezing for the last 1 week. She also has productive phlegm which is whitish-yellow color but denies any fever and or chills. Does not have any chest pain and or palpitation. Denies any abdominal pain, nausea and or vomiting. No problem with urination or bowel habit. Oxygen saturation was noted to be low at 86 on room air and the CT of the chest did not show any pulmonary embolism but may have left lower lobe pneumonia. She was started with intravenous antibiotic and also Solu-Medrol and bronchodilators and was admitted to medical telemetry unit for continuation of care. Admission Exam Per Admitting Provider Physical Exam: Lying in bed without any acute distress Constitutional: + ill appearing and + thin Eyes: PERRL, conjunctivae normal, anicteric sclerae ENMT: external ear and nose normal, oropharynx normal Neck: trachea midline, no thyromegaly Respiratory: + respiratory distress (Mild to moderate respiratory distress at rest) Auscultation: + diminished lung sounds and + crackles (Crackles mostly at the left base) Cardiovascular: Rate/Rhythm: regular rate and regular rhythm; not tachycardic Heart Sounds: normal S1 and normal S2; no murmur Extremities: no edema Gastrointestinal (Abdomen): Inspection/Auscultation: normal bowel sounds; abdomen not distended Percussion/Palpation: abdomen soft; abdomen nontender Musculoskeletal: No acute arthritis involving any of the joints Neurologic: normal touch/pain/proprioception and moves all extremities; no focal motor deficits Lymphatic: no cervical or axillary lymphadenopathy Principal Diagnosis COPD Exacerbation Discharge Exam General: NAD, sitting up in bed, conversing appropriately (no conversational dyspnea), very thin. A+Ox3, euthymic affect. HEENT: Normocephalic, atraumatic. Conjunctivae normal, anicteric sclerae. E xternal ear and nose normal, oropharynx normal. Respiratory: Normal respiratory effort, diminished lung sounds, no wheeze. No accessory muscle use, 92% on RA. Cardiovascular: Regular rate, rhythm, no murmur, normal peripheral pulses, no BLE edema. Vessels: No JVD. Abdomen/GI: Normal bowel sounds, soft, nontender, no hepatosplenomegaly. Extremities/Musculoskeletal: No cyanosis or clubbing, extremities motor strength appears intact, moves all extremities. Neurologic: PERRL, EOMI, accommodation nl, no face palsy, no dysarthria, CN's II-XI not formally tested but appear grossly intact bilaterally. Skin: No rashes, normal color, warm/dry. Discharge Data Allergies Allergy/AdvReac Type Severity Reaction Status Date / Time Penicillins Allergy Intermediate HIVES- 50 Verified 07/09/21 22:58 YEARS AGO. Consultations 01/22/24 12:13 ED Decision to Admit Stat Ordered Studies 01/22/24 10:40 CT angio chest PE protocol Stat Hospital Course (1) Acute exacerbation of chronic obstructive airways disease: (2) Acute hypoxemic respiratory failure: Magalis Archuleta is a 73 y/o F with significant PMHx of COPD, prediabetes, hypothyroidism, GERD, history of celiac disease, chronic myofascial pain, osteoporosis and ongoing tobacco abuse who presented on 01/22/24 with increasing shortness of breath and wheezing x 1 week and was found to have an acute COPD exacerbation and acute hypoxemic respiratory failure. Leukocytosis was present on admission, RVP was negative. Admitting CXR with no acute abnormalities, no overt evidence of pneumonia. Chest CTA did not show a PE, but did reveal emphysema + bronchial wall thickening [suggestive of infection]. She ultimately received IV Rocephin (2g x 2 doses) and PO azithromycin (500mg x 1 dose, 250mg x 2 doses = total of 3 doses) while admitted. Her IV Rocephin was stopped on 01/22. Patient is set to complete 2 more days of PO azithromycin 250mg daily at time of discharge. Patient was also receiving IV methylprednisolone; she was transitioned to PO prednisone 40mg daily today (01/23). She is set to complete 2 more days of PO prednisone 40mg daily at time of discharge. Patient also rec eived scheduled albuterol nebulizer treatments while admitted. She did require 2L via NC intermittently while admitted; however, her oxygen saturation never dropped below 84%. Her breathing has significantly improved since her time of presentation. Patient failed her 2-step test today. She is subsequently being discharged with 2L of supplemental oxygen via NC to use ONLY with movement or activity. Preliminary blood cultures showing NGTD. Preliminary sputum culture showing only light normal zeeshan present. Patient plans to quit smoking cigarettes at time of discharge. (3) Chronic myofascial pain: Patient did not c/o any pain during her hospitalization; can continue to manage this condition in the outpatient setting with her PCP. (4) Prediabetes: Patient's Hgb A1c 6.5 on 01/23; she will ultimately need to follow-up with her PCP regarding this finding. (5) Acquired hypothyroidism: Patient to continue taking her levothyroxine as prescribed at time of discharge. Recommend having her TSH checked by her PCP in the near future if it was not recently completed. (6) Celiac disease: Patient had no acute issues with her celiac disease while admitted. PCP: Lindsey Cantu MD Disposition: Patient being discharged to home - self care. Will be sent home with supplement oxygen via nasal cannula. Patient must use 2L of oxygen via nasal cannula when ambulating; does NOT require oxygenation support at rest. Patient seen in collaboration with Dr. Michael. Please see addendum. I spent a total of 50 minutes coordinating, documenting, and providing care for this patient excluding time spent in the performance of separately billed services. This included personally reviewing all current laboratories and imaging studies, medical reconciliation, outpatient chart review and discussion with specialists. This chart was completed in part utilizing Speech Voice Recognition Software. Grammatical errors, random word insertions, pronoun errors, and incomplete sentences are an occasional consequence of this system due to software limitations, ambient noise, and hardware issues. Any formal questions or concerns about the content, text, or information contained within the body of this dictation should be directly addressed to the provider for clarification. Home Health Attestation I certify that this patient is under my care and that I, or a physicians social worker assistant working with me, had a face to-face encounter that meets the home health crfi-st-beun encounter requirements with this patient. The encounter with the patient was in whole, or in part, for the following m edical condition, which is the primary reason for home health care (list medical condition): I certify that, based on my findings, the following services are medically nece ssa home health services: My clinical findings support the need for the above services because: Further, I certify that my clinical findings support that this patient is homebound (i.e. absences from home require considerable and taxing effort and are for medical reasons or jehovah's witness services or infrequently or of short duration when for other reasons) because: Certification for Home Health Services: Based on the above findings, I certify that this patient is confined to the home and needs intermittent care home care, physical therapy and/or speech therapy or continues to need occupational therapy. The patient is under my care, and I have initiated the establishment of the plan of care. This patient will be followed by a physician who will periodically review the plan of care. Total Time Total Time Spent Total Time Spent (In Minutes): 50 Discharge Plan Discharge Items Patient Disposition: Home - Self-Care Reason For Visit: COPD EXACERBATION Discharge Diagnosis: COPD Exacerbation Acute Hypoxemic Respiratory Failure Condition on Discharge: Fair Activity: Resume your previous activity Non-emergency contact: Primary Care Provider Call non-emergency contact if: you have any medication questions, your symptoms worsen and you have a fever Follow-up/Referrals: Lindsey Cantu MD [Primary Care Provider] - (Date & Time 01/30/2024 9:40 AM Provider Chandra Neal MD Department Family Medicine [facility] ) Diet: Regular Addtl Attending Provider Instructions: You were admitted in the hospital with a COPD exacerbation. You received both IV and oral antibiotics while you were hospitalized. The antibiotics you were treated with are azithromycin (oral) and ceftriaxone (IV). You are being discharged on a 2-day course of oral azithromycin. Please continue to take this antibiotic as prescribed for the next 2 days in order to complete the total 5-day course. You also received IV steroids while you were hospitalized to help your breathing. Please continue to take the oral prednisone (steroid) as prescribed for the next 2 days. We also restarted your Singulair (montelukast) while you were hospitalized. A prescription for this medication has been sent to your pharmacy. Please take this medication as prescribed. Your preliminary blood cultures and sputum culture are NOT showing any bacterial growth at time of discharge. Please follow-up with your primary care provider (PCP) to discuss the final results of these tests when they are available. You are being discharged home with supplemental oxygen therapy because you failed your 2-step test. You ultimately required 2L of supplemental oxygen with walking to maintain your oxygen level. Please use 2L of supplemental oxygen via nasal cannula with walking and movement at time of discharge. We checked your hemoglobin A1c while you were hospitalized as well. Your hemoglobin A1c is 6.5, please follow-up with your PCP to discuss this finding. Please follow-up with your PCP within the next week for your hospital discharge appointment. Seek medical attention if you have: * temperature above 101 * chest pain or trouble breathing * abdominal pain, nausea, vomiting * diarrhea, dark stools or bloody stools * any unanswered questions or concerns Call 911 if symptoms are severe. Please take good care of yourself. It has been a pleasure taking care of you. If you have any questions regarding your recent hospitalization please contact [facility] and request Rodger Ulrichist @ [phone]. Pending Studies at Discharge: No Stand-Alone Forms: My [facility], Work/School Release, Smoking Cessation Medications and DC Order Prescriptions: New azithromycin 250 mg Tablet 250 mg PO QAM 2 Days Qty: 2 0RF prednisone 20 mg Tablet 40 mg PO DAILY 2 Days Qty: 4 0RF Continued omeprazole 20 mg capsule,delayed release(DR/EC) 20 mg PO BID levothyroxine 100 mcg tablet 100 mcg PO DAILYBB tizanidine 4 mg tablet 4 mg PO Q6 PRN (Reason: Muscle Spasm) tiotropium bromide [Spiriva with HandiHaler] 18 mcg capsule, w/inhalation device 1 cap INHALATION QAM albuterol sulfate 90 mcg/actuation HFA aerosol inhaler 2 puff INHALATION Q4 PRN (Reason: wheeze) calcium carbonate-vitamin D3 600 mg-10 mcg (400 unit) tablet 4 tab PO DAILY varenicline 1 mg tablet 1 mg PO DIRECTED fluticasone furoate-vilanterol [Breo Ellipta] 100-25 mcg/dose blister with device 1 inh INHALATION QAM montelukast 10 mg tablet 10 mg PO QAM Qty: 30 0RF Krames/Other Patient Handouts: A1C, COPD Quit Smoking, Managing Diabetes: The A1C Test Admission Data Admit Date/Time: 01/22/24 12:23 Attending Provider: Amy Michael I. Admit Provider: Franki Young Primary Care Provider: Lindsey Cantu Other Providers: Franki Young
== END 2024-01-24 13:50 | disposition home or self-care (01) | DRG 190 ==
LOC: ED 09:06 → SUATTDRO 12:23 → EDINP 12:23 → 2W 17:43

== ENCOUNTER 2025-04-07 19:10 | Inpatient (IN) ==
--- NOTE | 2025-04-07 19:32 | Emergency Department Note ---
Impression & Plan Shortness of breath, COPD (chronic obstructive pulmonary disease), Elevated troponin ED Provider Note NAME: KIKE THOMSON AGE: 75 SEX: F : 1950 ARRIVES VIA: Walk-In INFORMANT: Patient ED PROVIDER(S): Rigoberto Fonseca DO CHIEF COMPLAINT: Swelling in the legs HPI: Patient is a 75-year-old female who presents to the ER for swelling in her bilateral legs. She notes this has been present for the past several months. Has been gradually getting worse. She has had this followed up on by several doctors and notes that they have not done anything. She does take a diuretic and notes that she has not missed any doses. Admits to chronic shortness of breath which is been gradually getting worse over months as well. Denies any chest pain. No belly pain. No nausea, vomiting, or diarrhea. No dysuria, urgency, or frequency. No other exacerbating or remitting factors. ADDITIONAL HISTORY OBTAINED: Per HPI Chronic Medical/Social Conditions Affecting Care: Per HPI PAST MEDICAL HISTORY:See Below PAST SURGICAL HISTORY:See Below FAMILY HISTORY:See Below SOCIAL HISTORY:See Below HOME MEDICATIONS:See Below ALLERGIES:See Below VITALS:See Below PHYSICAL EXAMINATION: GENERAL: Sitting up in bed, alert, well appearing, well nourished, no distress, non-toxic EYE EXAM: normal conjunctiva. OROPHARYNX: mucous membranes are moist NECK: supple, no nuchal rigidity, no adenopathy, non-tender LUNGS: Clear to auscultation. Normal chest wall mechanics HEART: no murmurs, S1 normal and S2 normal ABDOMEN: abdomen soft, non-tender, normo-active bowel sounds, no masses, no rebound or guarding. BACK: Back is symmetrical on inspection and there is no deformity, no midline tenderness, no CVA tenderness. SKIN: no rashes and no bruising UPPER EXTREMITIES: upper extremities are grossly normal. LOWER EXTREMITIES: No pitting edema. Mild pitting edema to bilateral lower extremities. Calves are equal bilaterally NEURO EXAM: Normal sensorium, cranial nerves II-XII grossly intact, normal speech, no gross weakness of arms, no gross weakness of legs. MEDICAL DECISION MAKING: Patient is a 75-year-old female who presents ER for the above-stated complaint. IV was established and blood work was obtained. Labs show leukocytosis 12,000. Mild anemia 11. D-dimer was negative. BMP was fairly unremarkable. Troponin was elevated in the 30s. proBNP was 62. Lipase normal. She does have pitting edema in the lower extremities. She was found to be hypoxic with a pulse ox of 86% on room air. She was placed on 2 L nasal cannula. She was given a neb treatment as well as IV steroids. She is updated bedside discussed case with the hospitalist for further evaluation management treatment. Consults/Care Managements Discussions: Per MDM Triage Nursing notes reviewed. Limited review of prior medical records performed Vital Signs: reviewed and remarkable for no significant abnormalities Differential diagnosis: Cardiac ischemia, aortic dissection, pulmonary embolism, pneumothorax, pneumonia, pericarditis, myocarditis, esophageal rupture, GERD, cholecystitis, pancreatitis, musculoskeletal, as well as other pathologies. ER treatment provided: See below Diagnostics interpreted by me include EKG and cardiac monitoring as listed below: -Cardiac Monitoring: An order was placed for continuous cardiac monitoring. The monitor shows a rate of 90 with sinus rhythm. -ECG: Sinus rhythm rate 93 Left axis No PVCs QTc 430 -Laboratory studies:Interpreted by me as stated above in MDM and shown below. Imaging studies: Xrays: As interpreted by me: Portable AP upright 1 view of the chest shows no focal Lutrate CTs show: none Procedures:none Critical Care: I have personally spent 33 minutes of critical care time in the direct management of this patient. This includes bedside care, interpretation of diagnostic studies, and testing, discussion with consultants, patient, and family members, and other required patient management activities. This minutes is in excess of all separately billable procedures. Past Med/Surg History Problem List (Updated 04/07/25 @ 22:48 by Rigoberto Fonseca DO) Elevated troponin (Acute) Shortness of breath (Acute) Acute hypoxemic respiratory failure COPD (chronic obstructive pulmonary disease) (Acute) Acute bronchitis due to Rhinovirus (Acute) Medical History Osteoporosis Ulnar neuropathy of both upper extremities Acute hypoxemic respiratory failure Hypoxemia Social History Smoking Status: Current every day smoker Tobacco Type: Cigarettes Hx Substance Use: No Preferred Language: Togolese Communication Ability: Effective Supervisor Finishing Room Required: No Beliefs That Will Affect Care: None Current Living Situation: Spouse Feels Safe at Home: Yes Assistive Devices: None Allergies Allergies Allergy/AdvReac Type Severity Reaction Status Date / Time Penicillins Allergy Intermediate HIVES- 50 Verified 07/09/21 22:58 YEARS AGO. Home Meds Home Medications Medication Instructions Recorded Confirmed omeprazole 20 mg capsule,delayed 20 mg PO BID 07/09/21 04/07/25 release albuterol sulfate 90 mcg/actuation 2 puff inhalation Q4 PRN wheeze 06/04/23 04/07/25 aerosol inhaler calcium 600 mg (as 4 tab PO DAILY 06/04/23 04/07/25 carbonate)-vitamin D3 10 mcg (400 unit) tablet levothyroxine 100 mcg tablet 100 mcg PO DAILYBB 06/04/23 04/07/25 tiotropium bromide 18 mcg capsule 1 cap inhalation QAM 06/04/23 04/07/25 with inhalation device (Spiriva with HandiHaler) tizanidine 4 mg tablet 4 mg PO Q6 PRN Muscle Spasm 06/04/23 04/07/25 fluticasone furoate 100 1 inh inhalation QAM 01/22/24 04/07/25 mcg-vilanterol 25 mcg/dose inhalation powder (Breo Ellipta) Previous Rx's Medication Instructions Recorded montelukast 10 mg tablet 10 mg PO QAM #30 tabs 01/24/24 Results & Data (ED) Vital Signs Vital Signs - 24 hr 04/07/25 19:15 04/07/25 19:26 04/07/25 19:37 Temperature 36.9 C Temperature Source Temporal Artery Scan Pulse Rate 92 H 90 Pulse Rate [Apical] 90 Pulse Rhythm [Apical] Regular Pulse Strength [Apical] Normal Respiratory Rate 20 18 Respiratory Effort / Characteristics Non-Labored Spontaneous Non-Labored Spontaneous Respiratory Depth Normal Normal Respiratory Pattern Regular Regular Blood Pressure 114/60 Blood Pressure [Right Arm] 129/70 Blood Pressure Mean 78 Blood Pressure Mean [Right Arm] 89 Blood Pressure Position Sitting Pulse Oximetry 92 93 Oxygen Delivery Method Room Air Room Air Oxygen Flow Rate Sepsis Recent Fever Within 48 Hours No Sepsis New/Unexplained Change in Mental Status N/A Sepsis Action Taken by Nursing No Action Required Oxygen Flow Rate - Titration Pulse Oximetry Post Tiitration 04/07/25 20:30 04/07/25 21:00 04/07/25 22:00 Temperature Temperature Source Pulse Rate 89 87 85 Pulse Rate [Apical] Pulse Rhythm [Apical] Pulse Strength [Apical] Respiratory Rate 21 22 15 Respiratory Effort / Characteristics Respiratory Depth Respiratory Pattern Blood Pressure 115/66 111/68 117/84 Blood Pressure [Right Arm] Blood Pressure Mean 77 89 95 Blood Pressure Mean [Right Arm] Blood Pressure Position Pulse Oximetry 92 93 100 Oxygen Delivery Method Oxygen Flow Rate Sepsis Recent Fever Within 48 Hours Sepsis New/Unexplained Change in Mental Status Sepsis Action Taken by Nursing Oxygen Flow Rate - Titration Pulse Oximetry Post Tiitration 04/07/25 22:21 04/07/25 22:27 Temperature Temperature Source Pulse Rate 90 Pulse Rate [Apical] Pulse Rhythm [Apical] Pulse Strength [Apical] Respiratory Rate 22 Respiratory Effort / Characteristics Respiratory Depth Respiratory Pattern Blood Pressure Blood Pressure [Right Arm] Blood Pressure Mean Blood Pressure Mean [Right Arm] Blood Pressure Position Pulse Oximetry 90 86 L Oxygen Delivery Method Room Air Oxygen Flow Rate 0 Sepsis Recent Fever Within 48 Hours Sepsis New/Unexplained Change in Mental Status Sepsis Action Taken by Nursing Oxygen Flow Rate - Titration 2 Pulse Oximetry Post Tiitration 90 Laboratory Data 04/07/25 19:30 04/07/25 19:30 Lab Results 04/07/25 04/07/25 Range/Units 19:30 21:25 WBC 12.60 H (4.8-10.8) K/ul RBC 4.08 L (4.20-5.40) M/uL Hgb 11.9 L (12.0-16.0) g/dl Hct 38.1 (37.0-47.0) % MCV 93.4 (80.0-100.0) fL MCH 29.2 (25.0-34.0) pg MCHC 31.2 L (32.0-36.0) g/dL RDW Std Deviation 48.2 H (36.4-46.3) fL RDW Coeff of Ada 14.1 (11.5-14.5) % Plt Count 364 (130-400) K/uL MPV 9.2 L (9.4-12.4) fL Immature Gran % (Auto) 0.4 % Neut % (Auto) 54.8 % Lymph % (Auto) 30.5 % [place] % (Auto) 12.4 % Eos % (Auto) 1.3 % Baso % (Auto) 0.6 % Neut # (Auto) 6.91 H (1.40-6.50) K/uL Lymph # (Auto) 3.84 H (1.20-3.40) K/uL [place] # (Auto) 1.56 H (0.11-0.59) K/uL Eos # (Auto) 0.16 (0.00-0.50) K/uL Baso # (Auto) 0.08 (0.00-0.20) K/uL Immature Gran # (Auto) 0.05 (0.01-0.20) K/uL D-Dimer 490 (0-500) ug/L FEU Sodium 143 (136-145) mmol/L Potassium 3.8 (3.5-5.1) mmol/L Chloride 107 (98-107) mmol/L Carbon Dioxide 30 (21-32) mmol/L Anion Gap 6 (3-11) BUN 14 (6-23) mg/dl Creatinine 0.71 (0.6-1.2) mg/dl Est Cr Clr Drug Dosing 52.7 ml/min eGFR 89.17 BUN/Creatinine Ratio 19.7 (10-20) Glucose 86 (70-99(Fasting)) mg/dl Calcium 8.4 L (8.6-10.3) mg/dl Magnesium 2.1 (1.7-2.4) mg/dl Total Bilirubin 0.3 (0.2-1.0) mg/dl AST 55 H (13-39) U/L ALT 42 (7-52) U/L Alkaline Phosphatase 112 H (34-104) U/L Troponin I High Sens 33.3 H 31.9 H (0-14) pg/ml B-Natriuretic Peptide 62 (0-100) pg/ml Total Protein 6.5 (6.0-8.3) gm/dl Albumin 3.6 (3.4-5.0) gm/dl Globulin 2.9 (2.5-4.0) gm/dl Albumin/Globulin Ratio 1.2 (0.9-2) Lipase 27 (11-82) U/L Administered Medications Discontinued Medications Albuterol (Albuterol 0.083% Nebu Soln 3 Ml Vial) 2.5 mg NEB NOW STA; Protocol Stop: 04/07/25 21:30 Last Admin: 04/07/25 21:44 Dose: 2.5 mg Documented By: TARUNW Methylprednisolone (Methylprednisolone 125 Mg/2 Ml Vial) 20 mg IV NOW STA Stop: 04/07/25 21:30 Last Admin: 04/07/25 21:42 Dose: Not Given Documented By: PAULA Methylprednisolone (Methylprednisolone 125 Mg/2 Ml Vial) 40 mg IV NOW STA Stop: 04/07/25 21:43 Last Admin: 04/07/25 21:44 Dose: 40 mg Documented By: PAULA Imaging Data Radiologist's Impression: Chest X-Ray 04/07/25 19:26 Exam(s): XR CXR 1 VIEW EXAM: XR Chest, 1 View CLINICAL HISTORY: Reason for exam: Chest pain, nonspecific. TECHNIQUE: Frontal view of the chest. COMPARISON: 01/22/2024 FINDINGS: Lungs: Emphysematous changes. No consolidation or interstitial edema. Pleural space: No pleural effusion. No pneumothorax. Heart: Unremarkable. No cardiomegaly. Bones/joints: ORIF of the right humerus. IMPRESSION: 1. No acute cardiopulmonary abnormality. 2. Emphysematous changes. Electronically signed by: Rasheed Milner MD 04/07/25 21:22 PM Discharge Plan Visit Data Chief Complaint: Swelling/Edema to Extremity Stated Complaint: SWELLING IN ANKLES AND FEET AND BREATHING ED Provider: Rigoberto Fonseca Discharge Problem: Shortness of breath, COPD (chronic obstructive pulmonary disease), Elevated troponin Condition: Serious Forms Stand Alone Forms: [facility] Prescriptions Prescriptions: No Action omeprazole 20 mg capsule,delayed release(DR/EC) 20 mg PO BID levothyroxine 100 mcg tablet 100 mcg PO DAILYBB tizanidine 4 mg tablet 4 mg PO Q6 PRN (Reason: Muscle Spasm) tiotropium bromide [Spiriva with HandiHaler] 18 mcg capsule, w/inhalation device 1 cap INHALATION QAM albuterol sulfate 90 mcg/actuation HFA aerosol inhaler 2 puff INHALATION Q4 PRN (Reason: wheeze) calcium carbonate-vitamin D3 600 mg-10 mcg (400 unit) tablet 4 tab PO DAILY fluticasone furoate-vilanterol [Breo Ellipta] 100-25 mcg/dose blister with device 1 inh INHALATION QAM montelukast 10 mg tablet 10 mg PO QAM Qty: 30 0RF Referrals Referrals: Lindsey Cantu MD [Primary Care Provider] - Discharge Problem: COPD (chronic obstructive pulmonary disease) Qualifiers: COPD type: unspecified COPD Qualified Code(s): J44.9 - Chronic obstructive pulmonary disease, unspecified
[2025-04-07 19:43] LABS: Hematocrit (blood only) 38.1 % (37.0-47.0); Hemoglobin 11.9 g/dl (12.0-16.0); Immature Granulocytes # (auto) 0.05 K/uL (0.01-0.20); Immature Granulocytes % (auto) 0.4 %; Mean Corpuscular Hemoglobin 29.2 pg (25.0-34.0); Mean Corpuscular Volume 93.4 fL (80.0-100.0); Platelet Count 364 K/uL (130-400); RDW Standard Deviation 48.2 fL (36.4-46.3); Red Blood Count 4.08 M/uL (4.20-5.40); White Blood Count 12.60 K/ul (4.8-10.8)
[2025-04-07 20:02] LABS: Alanine Aminotransferase 42.0 U/L (7-52); Albumin Globulin Ratio 1.2 (0.9-2); Alkaline Phosphatase 112.0 U/L (34-104); Anion Gap 6.0 (3-11); Bilirubin,Total 0.3 mg/dl (0.2-1.0); Blood Urea Nitrogen 14.0 mg/dl (6-23); Calcium 8.4 mg/dl (8.6-10.3); Carbon Dioxide 30.0 mmol/L (21-32); Chloride 107.0 mmol/L (98-107); Creatinine Clr Calc Pharmacy 52.7 ml/min; Globulin 2.9 gm/dl (2.5-4.0); Glucose 86.0 mg/dl (70-99(Fasting)); Lipase 27.0 U/L (11-82); Potassium 3.8 mmol/L (3.5-5.1); Sodium 143.0 mmol/L (136-145); Total Protein 6.5 gm/dl (6.0-8.3)
--- NOTE | 2025-04-07 21:23 | XRay Report ---
Exam(s): XR CXR 1 VIEW EXAM: XR Chest, 1 View CLINICAL HISTORY: Reason for exam: Chest pain, nonspecific. TECHNIQUE: Frontal view of the chest. COMPARISON: 01/22/2024 FINDINGS: Lungs: Emphysematous changes. No consolidation or interstitial edema. Pleural space: No pleural effusion. No pneumothorax. Heart: Unremarkable. No cardiomegaly. Bones/joints: ORIF of the right humerus. IMPRESSION: 1. No acute cardiopulmonary abnormality. 2. Emphysematous changes. Electronically signed by: Rasheed Milner MD 04/07/25 21:22 PM
[2025-04-07] MEDS: ALBUTEROL 0.083% NEBU SOLN 3 ML VIAL NEB STA (21:44)
[2025-04-07 22:34] LABS: Magnesium 2.1 mg/dl (1.7-2.4)
[2025-04-07] MEDS: ALBUT/IPRATROP 3MG/0.5MG NEB 3 ML VIAL NEB STA (22:52)
--- NOTE | 2025-04-07 23:22 | History & Physical Report ---
Date of Service April 07, 2025 Assessment & Plan (1) Acute hypoxemic respiratory failure: Plan: Assessment and plan below following discussion of case with ED provider and reviewing patient history/pertinent normal/abnormal diagnostic test results. Acute hypoxemic respiratory failure: secondary to COPD exacerbation secondary to possible viral RTI Rule out PE given pleuritic chest pain complaints Bilateral leg swelling, possible right side heart failure given clear chest x- ray and normal BNP Rule out DVT prediabetes, hemoglobin A1c of 5.7 last August 2024 hypothyroidism, outpatient TSH elevated at 4.8 last August 2024 chronic myofascial pain Malnutrition Re: Low BMI ongoing tobacco abuse Admit to medical telemetry Supplemental O2 Baseline VBG Nebs RTC, prednisone course for COPD exacerbation CT chest PE study Further management pending CT chest results Pulmonology consult if without improvement TTE for possible pulmonary hypertension Nutrition consult Re: Low BMI Nicotine patch as needed DVT prophylaxis. Heparin subcu Full code Text document was generated using [employer] voice recognition software. It may contain grammatical or spelling errors. Kindly contact undersigned for clarification of any documentation item in question. History of Present Illness Chief Complaint: Leg swelling, worsening SOB Primary Care Provider: Lindsey Cantu MD History obtained from patient and records. Medical history significant for COPD, prediabetes, hypothyroidism, GERD, celiac disease, chronic myofascial pain, osteoporosis, ongoing tobacco abuse. Last confinement January 2024 for COPD exacerbation. Patient noted increased bilateral leg swelling the last 6 months. Temporary improvement with as needed Lasix prescribed by PCP. Patient noted sticky dry cough symptoms the last few days. Patient unable to expectorate. Pleuritic chest pain and worsening SOB. Not sure about sick contacts. No aspiration. Legs more swollen than usual. Lowest O2 sat of 80s documented at the ER. Patient given Solu-Medrol and neb treatment. 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 Home Medications Medication Instructions Recorded Confirmed Type omeprazole 20 mg capsule,delayed 20 mg PO BID 07/09/21 04/07/25 History release albuterol sulfate 90 mcg/actuation 2 puff inhalation Q4 PRN wheeze 06/04/23 04/07/25 History aerosol inhaler calcium 600 mg (as 4 tab PO DAILY 06/04/23 04/07/25 History carbonate)-vitamin D3 10 mcg (400 unit) tablet levothyroxine 100 mcg tablet 100 mcg PO DAILYBB 06/04/23 04/07/25 History tiotropium bromide 18 mcg capsule 1 cap inhalation QAM 06/04/23 04/07/25 History with inhalation device (Spiriva with HandiHaler) tizanidine 4 mg tablet 4 mg PO Q6 PRN Muscle Spasm 06/04/23 04/07/25 History fluticasone furoate 100 1 inh inhalation QAM 01/22/24 04/07/25 History mcg-vilanterol 25 mcg/dose inhalation powder (Breo Ellipta) montelukast 10 mg tablet 10 mg PO QAM #30 tabs 01/24/24 04/07/25 Rx furosemide 20 mg tablet 20 mg PO DAILY PRN leg swelling 04/08/25 04/08/25 History Past Med/Surg History Problem List (Updated 04/07/25 @ 22:48 by Rigoberto Fonseca DO) Elevated troponin (Acute) Shortness of breath (Acute) Acute hypoxemic respiratory failure COPD (chronic obstructive pulmonary disease) (Acute) Acute bronchitis due to Rhinovirus (Acute) Medical History Osteoporosis Ulnar neuropathy of both upper extremities Acute hypoxemic respiratory failure Hypoxemia Social History Smoking Status: Current every day smoker Tobacco Type: Cigarettes Cigarettes Per Day: 1 pack/day; Second Hand Exposure: Yes; Do You Dip or Chew Tobacco: No; Hx Alcohol Use: No Hx Substance Use: No Preferred Language: Jamaican Communication Ability: Effective Jacket Preparer Required: No Beliefs That Will Affect Care: None Current Living Situation: Spouse Feels Safe at Home: Yes Assistive Devices: Denture - Upper, Denture - Lower and Glasses Review of Systems Review of Systems: As per HPI, all other systems reviewed and negative Physical Exam Physical Exam: GENERAL: comfortable, underweight, no respiratory distress SKIN: Pallor, warm HEENT: Pale palpebral conjunctivae, no ptosis, dry buccal mucosa, nasal cannula in place NECK : Supple, no tenderness CHEST : Decreased breath sounds, expiratory wheezes, no tenderness HEART : RRR, no obvious murmurs ABDOMEN: no distention, nontender EXTREMITIES : No LE swelling/tenderness, no other conspicuous deformities noted NEUROLOGIC : Coherent, no facial asymmetry, no other gross focality Results & Data Results & Data Vital Signs (Past 12 Hours) Vital Signs Temp Pulse Pulse Resp BP BP Pulse Ox 04/07/25 22:27 86 L 04/07/25 22:21 90 22 90 04/07/25 22:00 85 15 117/84 100 04/07/25 21:00 87 22 111/68 93 04/07/25 20:30 89 21 115/66 92 04/07/25 19:37 90 04/07/25 19:26 90 18 129/70 93 04/07/25 19:15 36.9 C 92 H 20 114/60 92 O2 Del Method O2 Flow Rate 04/07/25 22:27 Room Air 0 04/07/25 22:21 04/07/25 22:00 04/07/25 21:00 04/07/25 20:30 04/07/25 19:37 04/07/25 19:26 Room Air 04/07/25 19:15 Room Air Laboratory Results Laboratory Results WBC 12.60 K/ul (4.8-10.8) H 04/07/25 19:30 RBC 4.08 M/uL (4.20-5.40) L 04/07/25 19:30 Hgb 11.9 g/dl (12.0-16.0) L 04/07/25 19:30 Hct 38.1 % (37.0-47.0) 04/07/25 19:30 MCV 93.4 fL (80.0-100.0) 04/07/25 19:30 MCH 29.2 pg (25.0-34.0) 04/07/25 19:30 MCHC 31.2 g/dL (32.0-36.0) L 04/07/25 19:30 RDW Std Deviation 48.2 fL (36.4-46.3) H 04/07/25 19:30 RDW Coeff of Ada 14.1 % (11.5-14.5) 04/07/25 19:30 Plt Count 364 K/uL (130-400) 04/07/25 19:30 MPV 9.2 fL (9.4-12.4) L 04/07/25 19:30 Immature Gran % (Auto) 0.4 % 04/07/25 19:30 Neut % (Auto) 54.8 % 04/07/25 19:30 Lymph % (Auto) 30.5 % 04/07/25 19:30 [place] % (Auto) 12.4 % 04/07/25 19:30 Eos % (Auto) 1.3 % 04/07/25 19:30 Baso % (Auto) 0.6 % 04/07/25 19: Neut # (Auto) 6.91 K/uL (1.40-6.50) H 04/07/25 19: Lymph # (Auto) 3.84 K/uL (1.20-3.40) H 04/07/25 19:30 [place] # (Auto) 1.56 K/uL (0.11-0.59) H 04/07/25 19:30 Eos # (Auto) 0.16 K/uL (0.00-0.50) 04/07/25 19: Baso # (Auto) 0.08 K/uL (0.00-0.20) 04/07/25 19: Immature Gran # (Auto) 0.05 K/uL (0.01-0.20) 04/07/25 19:30 D-Dimer 490 ug/L FEU (0-500) 04/07/25 19:30 Sodium 143 mmol/L (136-145) 04/07/25 19: Potassium 3.8 mmol/L (3.5-5.1) 04/07/25 19: Chloride 107 mmol/L (98-107) 04/07/25: Carbon Dioxide 30 mmol/L (21-32) 04/07/25 19:30 Anion Gap 6 (3-11) 04/07/25 19:30 BUN 14 mg/dl (6-23) 04/07/25: Creatinine 0.71 mg/dl (0.6-1.2) 04/07/25: Est Cr Clr Drug Dosing 52.7 ml/min 04/07/25:30 eGFR 89.17 04/07/25 19:30 BUN/Creatinine Ratio 19.7 (10-20) 04/07/25 19:30 Glucose 86 mg/dl (70-99(Fasting)) 04/07/25 19:30 Calcium 8.4 mg/dl (8.6-10.3) L 04/07/25 19:30 Magnesium 2.1 mg/dl (1.7-2.4) 04/07/25 19:30 Total Bilirubin 0.3 mg/dl (0.2-1.0) 04/07/25 19:30 AST 55 U/L (13-39) H 04/07/25 19:30 ALT 42 U/L (7-52) 04/07/25 19:30 Alkaline Phosphatase 112 U/L (34-104) H 04/07/25 19:30 Troponin I High Sens 31.9 pg/ml (0-14) H 04/07/25: B-Natriuretic Peptide 62 pg/ml (0-100) 04/07/25 19:30 Total Protein 6.5 gm/dl (6.0-8.3) 04/07/25 19:30 Albumin 3.6 gm/dl (3.4-5.0) 04/07/25 19:30 Globulin 2.9 gm/dl (2.5-4.0) 04/07/25 19:30 Albumin/Globulin Ratio 1.2 (0.9-2) 04/07/25 19:30 Lipase 27 U/L (11-82) 04/07/25 19:30 Impressions Chest X-Ray 04/07/25 19:26 Exam(s): XR CXR 1 VIEW EXAM: XR Chest, 1 View CLINICAL HISTORY: Reason for exam: Chest pain, nonspecific. TECHNIQUE: Frontal view of the chest. COMPARISON: 01/22/2024 FINDINGS: Lungs: Emphysematous changes. No consolidation or interstitial edema. Pleural space: No pleural effusion. No pneumothorax. Heart: Unremarkable. No cardiomegaly. Bones/joints: ORIF of the right humerus. IMPRESSION: 1. No acute cardiopulmonary abnormality. 2. Emphysematous changes. Electronically signed by: Rasheed Milner MD 04/07/25 21:22 PM Diagnostic Findings EKG as per my interpretation :Rate 95, NSR, LAD, LAFB, T wave abnormalities septal leads, low voltage
[2025-04-07 23:44] LABS: Base Excess VBG 1.5 mEq/L; HCO3 VBG 29 mmol/L; Oxygen Saturation VBG < 60.0 %; PCO2 VBG 54 mmHg (38-50); PO2 VBG 33 mmHg; pH VBG 7.33 (7.36-7.41)
[2025-04-07] MEDS: OPTIRAY 320 125ml IV ONE (23:56)
[2025-04-08 00:30] LABS: Chlamydia pneumoniae PCR Not Detected (NotDetected); Coronavirus 229E PCR Not Detected (NotDetected); Coronavirus CoV-2 (COVID19)PCR Not Detected (NotDetected); Coronavirus HKU1 PCR Not Detected (NotDetected); Coronavirus NL63 PCR Not Detected (NotDetected); Coronavirus OC43PCR Not Detected (NotDetected); Human Metapneumovirus PCR Not Detected (NotDetected); Parainfluenza Virus 1 PCR Not Detected (NotDetected); Parainfluenza Virus 2 PCR Not Detected (NotDetected); Parainfluenza Virus 3 PCR Not Detected (NotDetected); Parainfluenza Virus 4 PCR Not Detected (NotDetected); Respiratory Syncytial VirusPCR Not Detected (NotDetected); Rhinovirus/Enterovirus PCR Not Detected (NotDetected)
--- NOTE | 2025-04-08 00:55 | CT Scan Report ---
EXAM: CT angio chest PE protocol CLINICAL HISTORY: PE TECHNIQUE: Contiguous axial images were obtained from the base of the neck through the upper abdomen following intravenous administration of iodinated contrast material. Angiographic images were processed, and 3D MIP images were acquired for interpretation. If IV contrast material had not been administered, the likelihood of detecting abnormalities relevant to the patient's condition would have been substantially decreased. Coronal and sagittal 3D MIPs were likewise performed and indicated to increase the sensitivity of detecting diffuse clinically relevant pathology. CT scan was performed according to ALARA (as low as reasonably achievable). 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 FINDINGS: Diffuse centrilobular emphysema is noted in both lungs. A focal fibrocalcified scar is noted involving the right upper lobe. Mild subpleural subsegmental atelectasis is noted involving bilateral posterior basal segments, likely sequelae of recent infection. Mild dilatation of the pulmonary trunk and bilateral main pulmonary arteries suggests the possibility of pulmonary arterial hypertension. Adequate contrast bolus without evidence of pulmonary embolism. The central airways are patent. The rest of the lungs are clear. No pleural effusion is present. The heart, aorta, and pericardium are of normal size and configuration. There are coronary artery and aortic atherosclerotic calcifications. No pericardial effusion is identified. The thyroid is unremarkable. No mediastinal, hilar, or axillary lymphadenopathy is noted. No suspicious lytic or sclerotic osseous lesions are identified. IMPRESSION: Diffuse centrilobular emphysema is noted in both lungs; stable. A focal fibrocalcified scar is noted involving the right upper lobe; stable. Mild subpleural subsegmental atelectasis is noted involving bilateral posterior basal segments, likely sequelae of recent infection; stable. Mild dilatation of the pulmonary trunk and bilateral main pulmonary arteries suggests the possibility of pulmonary arterial hypertension; stable. No pulmonary embolism. Electronically signed by Chandra Gomez 04-08-2025 12:54 AM
[2025-04-08] MEDS ORDERED: ACETAMINOPHEN 325 MG TAB PO PRN (00:59)
[2025-04-08] MEDS ORDERED: PROMETHAZINE 6.25 MG/50.25 ML BAG IV PRN (00:59)
[2025-04-08] MEDS: guaiFENesin 600 MG TABCR PO SCH (01:42)
--- NOTE | 2025-04-08 03:31 | Ultrasound Report ---
EXAM: US venous doppler LE BI CLINICAL HISTORY: leg swelling TECHNIQUE: Ultrasound examination of the bilateral lower extremity veins was performed in real time and duplex. One or more of the following were performed: spectral analysis, resistive index, waveform analysis, and pulsed Doppler. COMPARISON: None. FINDINGS: Normal phasic, non-pulsatile, and spontaneous flow is noted in the bilateral great saphenous, common femoral, superficial femoral, popliteal, anterior tibial, posterior tibial, and peroneal veins. The visualized veins of both lower extremities demonstrate normal compressibility. No sonographic evidence of acute deep vein thrombosis (DVT) is detected in the visualized veins of both lower extremities. Compression and Augmentation: All evaluated veins compress fully with applied transducer pressure. Augmentation of venous flow is noted with distal compression. Additional Findings: No evidence of intraluminal thrombus. IMPRESSION: No sonographic evidence of acute DVT is detected in the bilateral lower extremity veins at the time of examination. Disclaimer: DVT could be missed early in the disease when clot burden is minimal. For patients with moderate and high pretest probability of DVT and negative ultrasound, the [employer] clinical guidelines recommend testing with a D-dimer assay or repeat ultrasound in 5-7 days. If symptoms worsen, the Society of radiologists in ultrasound recommends repeating ultrasound even earlier. Electronically signed by Derek Riley 04-08-2025 03:31 AM
[2025-04-08] MEDS: HEPARIN SOD 5,000 UNIT/0.5 ML VIAL SQ SCH (06:03)
[2025-04-08] MEDS: LEVOTHYROXINE SODIUM 100 MCG TABLET PO SCH (06:03)
[2025-04-08] MEDS: ALBUMIN 25% 12.5 GM/50 ML VIAL IV ONE ×2 (06:03→06:33)
[2025-04-08 06:39] LABS: Base Excess VBG -0.2 mEq/L; HCO3 VBG 26 mmol/L; Oxygen Saturation VBG 86.0 %; PCO2 VBG 47 mmHg (38-50); PO2 VBG 53 mmHg; pH VBG 7.35 (7.36-7.41)
[2025-04-08 06:45] LABS: Hematocrit (blood only) 32.8 % (37.0-47.0); Hemoglobin 10.3 g/dl (12.0-16.0); Immature Granulocytes # (auto) 0.04 K/uL (0.01-0.20); Immature Granulocytes % (auto) 0.5 %; Mean Corpuscular Hemoglobin 29.1 pg (25.0-34.0); Mean Corpuscular Volume 92.7 fL (80.0-100.0); Platelet Count 333 K/uL (130-400); RDW Standard Deviation 48.1 fL (36.4-46.3); Red Blood Count 3.54 M/uL (4.20-5.40); White Blood Count 8.01 K/ul (4.8-10.8)
[2025-04-08] MEDS: LEVALBUTEROL 1.25 MG/3 ML NEB NEB SCH (06:59)
[2025-04-08] MEDS: IPRATROPIUM BROMIDE NEB SOLN 0.02% 0.5MG/2.5ML VIAL INH SCH (06:59)
[2025-04-08 07:21] LABS: Anion Gap 4.0 (3-11); Blood Urea Nitrogen 11.0 mg/dl (6-23); Calcium 7.4 mg/dl (8.6-10.3); Carbon Dioxide 27.0 mmol/L (21-32); Chloride 110.0 mmol/L (98-107); Creatinine Clr Calc Pharmacy 69.8 ml/min; Glucose 152.0 mg/dl (70-99(Fasting)); Potassium 3.7 mmol/L (3.5-5.1); Sodium 141.0 mmol/L (136-145)
[2025-04-08 07:36] LABS: Thyroid Stimulating Hormone 3.624 uIu/ml (0.300-4.500)
[2025-04-08] MEDS: CALCIUM 600MG + VIT D 400 IU TAB PO SCH (08:29)
[2025-04-08] MEDS: UMECLIDINIUM BROMIDE 62.5MCG/BLISTER 7 PUFFS/INHALER INH SCH (08:29)
[2025-04-08] MEDS: MONTELUKAST SODIUM 10 MG TABLET PO SCH (08:29)
[2025-04-08] MEDS: predniSONE 20 MG TAB PO SCH (08:29)
--- NOTE | 2025-04-08 10:17 | Electrocardiogram Report ---
Test Reason : Blood Pressure : */* mmHG Vent. Rate : 93 BPM Atrial Rate : 93 BPM P-R Int : 138 ms QRS Dur : 66 ms QT Int : 346 ms P-R-T Axes : 67 -76 67 degrees QTcB Int : 430 ms Normal sinus rhythm Left axis deviation Low voltage QRS Inferior infarct , age undetermined Cannot rule out Anteroseptal infarct (cited on or before 09-Jul-2021) Abnormal ECG When compared with ECG of 22-Jan-2024 09:27, Questionable change in initial forces of Septal leads Confirmed by Abdoul Melendez ([id number]) on 04/08/2025 10:17:41 AM Referred By: REFERRED SELF Confirmed By: Abdoul Melendez
--- NOTE | 2025-04-08 15:21 | XCELERA ---
[id number]
--- NOTE | 2025-04-08 15:33 | Communication Note ---
Date of Service: April 08, 2025 By CMS guidelines, a determination that the admission or continued stay is not medically necessary has been made by a member of the UR committee and mya padilla for this hospital stay, therefore a Code 44 will be completed and the Inpatient admission will be changed to outpatient.
--- NOTE | 2025-04-08 15:42 | Discharge Summary ---
Date of Service April 08, 2025 Admission HPI Per Admitting Provider History obtained from patient and records. Medical history significant for COPD, prediabetes, hypothyroidism, GERD, celiac disease, chronic myofascial pain, osteoporosis, ongoing tobacco abuse. Last confinement January 2024 for COPD exacerbation. Patient noted increased bilateral leg swelling the last 6 months. Temporary improvement with as needed Lasix prescribed by PCP. Patient noted sticky dry cough symptoms the last few days. Patient unable to expectorate. Pleuritic chest pain and worsening SOB. Not sure about sick contacts. No aspiration. Legs more swollen than usual. Lowest O2 sat of 80s documented at the ER. Patient given Solu-Medrol and neb treatment. 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 Admission Exam Per Admitting Provider GENERAL: comfortable, underweight, no respiratory distress SKIN: Pallor, warm HEENT: Pale palpebral conjunctivae, no ptosis, dry buccal mucosa, nasal cannula in place NECK : Supple, no tenderness CHEST : Decreased breath sounds, expiratory wheezes, no tenderness HEART : RRR, no obvious murmurs ABDOMEN: no distention, nontender EXTREMITIES : No LE swelling/tenderness, no other conspicuous deformities noted NEUROLOGIC : Coherent, no facial asymmetry, no other gross focality Principal Diagnosis COPD exacerbation Discharge Exam GENERAL: comfortable, underweight, no respiratory distress SKIN: Pallor, warm HEENT: Pale palpebral conjunctivae, no ptosis, moist buccal mucosa, nasal cannula in place 1L O2 NECK : Supple, no tenderness CHEST : Decreased breath sounds, occ rhonchi, no tenderness HEART : RRR, no obvious murmurs ABDOMEN: no distention, nontender EXTREMITIES : No LE swelling/tenderness, no other conspicuous deformities noted NEUROLOGIC : Coherent, no facial asymmetry, no other gross focality Discharge Data Allergies Allergy/AdvReac Type Severity Reaction Status Date / Time Penicillins Allergy Intermediate HIVES- 50 Verified 07/09/21 22:58 YEARS AGO. Consultations 04/07/25 21:27 ED Decision to Admit Stat Ordered Studies 04/07/25 23:36 CT angio chest PE protocol Stat 04/08/25 US venous doppler LE Stat Hospital Course (1) Acute hypoxemic respiratory failure: Patient was seen and examined at bedside for COPD exacerbation and hypoxia. Patient does not qualify diagnosis of acute hypoxemic respiratory failure as no respiratory distress mentioned in admitting exam findings and patient needed 2 L oxygen at presentation. Patient states that she feels back to her baseline and states she did not feel really bad when she came in as well she just came in because she could not expectorate the sputum and was having nagging dry coughs. Patient was also worked up in the line of DVT and PE, the imagings came back negative. per RN, patient moved around hallway and is now weaned down to room air oxygen. Echo was done, reviewed the findings, ejection fraction 55 to 60%, no regional wall motion abnormalities, right ventricular systolic pressure elevated at 30 to 40 mmHg. Patient is being discharged to home with following instructions at the point of discharge: Follow-up with your primary care physician within a week time and likely you will need labs CBC/CMP/magnesium/phosphorus. You were evaluated for COPD exacerbation, you will be discharged on prednisone dose. Recommend that you undergo lung function test in about 1 to 2 months time, recommend that you establish with lung doctor as an outpatient. Coordinate with your PCP office to set up the referral. Recommend that you quit smoking. Take your medications as prescribed. Please make sure that you are able to get your medications today by calling your pharmacy before you leave the hospital so that your treatment continuity is not broken. Text document was generated using [employer] voice recognition software. It may contain grammatical or spelling errors. Kindly contact undersigned for clarification of any documentation item in question. By CMS guidelines, a determination that the admission or continued stay is not medically necessary has been made by a member of the Utilization Review committee and a physician for this hospital stay. Therefore, a Code 44 will be completed and the inpatient admission will be changed to outpatient. Home Health Attestation I certify that this patient is under my care and that I, or a physicians public services assistant working with me, had a face to-face encounter that meets the home health [id number] encounter requirements with this patient. The encounter with the patient was in whole, or in part, for the following medical condition, which is the primary reason for home health care (list medical condition): I certify that, based on my findings, the following services are medically necessary home health services: My clinical findings support the need for the above services because: Further, I certify that my clinical findings support that this patient is homebound (i.e. absences from home require considerable and taxing effort and are for medical reasons or sikh services or infrequently or of short duration when for other reasons) because: Certification for Home Health Services: Based on the above findings, I certify that this patient is confined to the home and needs intermittent intermediate care, physical therapy and/or speech therapy or continues to need occupational therapy. The patient is under my care, and I have initiated the establishment of the plan of care. This patient will be followed by a physician who will periodically review the plan of care. Total Time Total Time Spent Total Time Spent (In Minutes): 45 Discharge Plan Discharge Items Patient Disposition: Home - Self-Care Reason For Visit: RESP FAILURE Discharge Diagnosis: COPD exacerbation Condition on Discharge: Serious Activity: Resume your previous activity Non-emergency contact: Primary Care Provider Call non-emergency contact if: you have any medication questions Follow-up/Referrals: Lindsey Cantu MD [Primary Care Provider] - Diet: Gluten Free and Heart Healthy Fluids: 2000ml (8 cups) Addtl Attending Provider Instructions: Follow-up with your primary care physician within a week time and likely you will need labs CBC/CMP/magnesium/phosphorus. You were evaluated for COPD exacerbation, you will be discharged on prednisone dose. Recommend that you undergo lung function test in about 1 to 2 months time, recommend that you establish with lung doctor as an outpatient. Coordinate with your PCP office to set up the referral. Recommend that you quit smoking. Take your medications as prescribed. Please make sure that you are able to get your medications today by calling your pharmacy before you leave the hospital so that your treatment continuity is not broken. Pending Studies at Discharge: No Stand-Alone Forms: [facility], [facility] Medications and DC Order Prescriptions: New prednisone 20 mg Tablet 40 mg PO DAILY 5 Days Qty: 10 0RF guaifenesin [Mucinex] 600 mg Tablet Extended Release 12hr 600 mg PO Q12 5 Days Qty: 10 0RF doxycycline hyclate 100 mg tablet 100 mg PO BID 5 Days Qty: 10 0RF Continued omeprazole 20 mg capsule,delayed release(DR/EC) 20 mg PO BID levothyroxine 100 mcg tablet 100 mcg PO DAILYBB tizanidine 4 mg tablet 4 mg PO Q6 PRN (Reason: Muscle Spasm) tiotropium bromide [Spiriva with HandiHaler] 18 mcg capsule, w/inhalation device 1 cap INHALATION QAM albuterol sulfate 90 mcg/actuation HFA aerosol inhaler 2 puff INHALATION Q4 PRN (Reason: wheeze) calcium carbonate-vitamin D3 600 mg-10 mcg (400 unit) tablet 4 tab PO DAILY furosemide 20 mg tablet 20 mg PO DAILY PRN (Reason: leg swelling) fluticasone furoate-vilanterol [Breo Ellipta] 100-25 mcg/dose blister with device 1 inh INHALATION QAM montelukast 10 mg tablet 10 mg PO QAM Qty: 30 0RF Discharge Orders: Discharge Order (Routine); Ordered 04/08/25 Ordered By: Lili Oakley Admission Data Admit Date/Time: 04/07/25 23:24 Attending Provider: Lili Oakley Admit Provider: Taco Preston Primary Care Provider: Lindsey Cantu Other Providers: Taco Preston
[2025-04-08 16:00] VITALS: BP 99/47; RESP 16; TEMP 99; O2SAT 90
[2025-04-08 17:12] VITALS: PULSE 100
== END 2025-04-08 18:31 | disposition home or self-care (01) | DRG 190 ==
LOC: ED 19:10 → 2N 23:24